=== PATIENT | male | born 1975 | race Caucasian/White ===

== ENCOUNTER 2021-01-18 12:00 | Outpatient (RCR) | payer OTHER, SELFPAY ==
--- NOTE | 2020-12-16 11:13 | HP.PTEVAL_ITS ---
Patient's Visit Information SAHIL YOUNG is a 45 year old M referred to Physical Therapy by Dr. Fernando Berman MD with a diagnosis of SPASM OF THE PIRIFORMIS M.. Date of Evaluation: 12/16/20 Physical Therapist: Cee Capone PT, Cert MDT - Visit Plan Frequency: 2-3x /Week Duration: 4-6 Weeks Plan: RIGHT LB/BUTTOCK US AND E-STIM WITH CP OR MH. POSTURE CORRECTION/STRENGTHENING, INSTRUCTION IN APPROPRIATE BODY MECHANICS AND ACTIVITY MODIFICATIONS. DLS STARTING WITH A NEUTRAL SPINE PROGRESSING ROM TOLERATED. AARON LE ROM, STRETCHING AND STRENGTHENING. PIRIFORMIS STRETCHING WITH BACK STRAIGHT. CONSIDER FOAM ROLLING FOR STRETCHING TOLERATED IF ABLE TO MAINTAIN NEUTRAL SPINE. HEP INSTRUCTION. 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 A LOT OF WALKING BUT NO LIFTING. SOME DESK WORK ABOUT AN HOUR OR TWO A DAY. REFEREES BASKETBALL, SOFTBALL AND VOLLEYBALL ALL YEAR LONG. Disability: NO. Present symptoms: CENTRAL AND RIGHT LBP, RIGHT POST THIGH PAIN. ONE EPISODE OF ENTIRE RIGHT LE GOING NUMB ABOUT A WEEK AGO. IT WAS SEVERE PAIN, SCARED HIM AND KEPT HIM UP ALL NIGHT. NOW THE PAIN IS MAINLY JUST IN THE RIGHT BACK AND THIGH. Present since: CHRONIC LBP BUT RIGHT THIGH PAIN X ABOUT 6 MONTH. HAS BEEN HAVING TROUBLE BENDING FOR ABOUT 18 MONTHS. TRIED MASSAGING A KNOT IN RIGHT LOW BACK JUST ABOVE BUTTOCKS AND THAT IS WHEN R LE WENT NUMB. Pain Scale: WORST 8/10, LEAST 0/10. Currently: 10/04. Commenced as a result of: DOG WENT UNDERFEET WHILE GOING DOWN STEPS AND LOST BALANCE AND FELT LOW BACK STRAIN - SKIPPED DOWN 5 STEPS HOLDING ONTO RAIL. DIDN'T FALL THOUGH. DIDN'T HEAR OF FEEL A POP. Symptoms at onset: LOW BACK. Worse: RISING FROM SITTING (GETTING UP), UMPIRING, A LOT OF BENDING, BENDING TO CLEAN BASES WITH BRUSH. SITTING. LYING DOWN. Better: STAYING ACTIVE, WORKING OUT, ON THE MOVE, STRETCHES. Disturbed sleep: YES. Previous history/Previous treatment: PHYSICAL THERAPY, PAIN MGMT WITH DR. VENTURA - 3 KHURRAM'S - GOT RID OF THE PAIN FOR A LONG TIME - ABOUT 7 YEARS AGO. NO BACK SURGERY. A FEW CHIROPRACTIC VISITS WITH SOME TEMPORARY BENEFIT - LAST VISIT ABOUT 2 MONTHS AGO. CHIROPRACTIC THIS EPISODE AND IN THE PAST TOO. STATES ONE TIME THEY ALMOST HAD TO CALL THE AMBULANCE BECAUSE HE COULDN'T GET OFF THE TABLE AFTER TREATMENT. Coughing/sneezing/straining: POSITIVE. Gait: NORMAL. Difficulty initiating urinatin: NO. Accidents: NO. Unexplained weight loss: NO. Imaging: NONE RECENT. PMH/Recent major surgery: UNREMARKABLE. OTHER: WORKING OUT AT [employer] BUT HAS TAKEN THE LAST WEEK OFF. 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 HAS BEEN GOING TO [employer] ABOUT 4 DAYS A WEEK FOR ABOUT 2 YEARS. - Objective Sitting/Standing Posture: FAIR. Lordosis: REDUCED. Lateral shift: NO. Relevant shift: N/A. Active Correction of posture: NE. Other Observations: INDEP GAIT AND TRANSFERS WITH NO GROSS DEVIATIONS NOTED EXCEPT DIFFICULTY GETTING UP ERECT AFTER SITTING. Motor deficit: AARON LE'S 5/5 WITH MMT'ING. Sensory deficit: AARON LE LIGHT TOUCH SENSATION INTACT AND SYMMETRICAL. ROM deficit: TIGHT AARON LE HIP FLEXORS, HS'S AND GASTROC SOLEUS COMPLEX'S. Reflexes: 3/3 AARON LE'S. AARON HIP ROTATION TIGHTNESS: ER LIMITATION R>L, IR LIMITATION L>R. Dural Signs: NEGATIVE AARON LE'S. Lumbar mvmt loss: flex - MOD TO LYNNE. ext - MOD. R SG - MOD. L SG - MOD. Core strength: FAIR. Palpation: NO ACUTE TENDERNESS. OTHER: POSITIVE R STEPHANIE TEST. TREATMENT: NEUROMUSCULAR REEDUCATION - RETRAINING OF MVMT AND POSTURE FOR SITTING, LYING AND STANDING ACTIVITIES. - Goals Goal 1:: DECREASE C/O BACK AND RIGHT LE SX'S. Goal Time Frame: 4-6 Weeks Goal 2:: IMPROVE SITTING, STANDING, SLEEP, SOCIAL LIFE, TRAVEL, HOMEMAKING AND EMPLOYMENT. Goal Time Frame: 4-6 Weeks Goal 3:: INSTRUCT IN PROPHYLAXIS Goal Time Frame: 4-6 Weeks - Anticipated Interventions Patient/Client Instruction: Educate patient on: Condition, Plan of Care, Risk Factors, Benefits of Fitness Program For the Purpose of:: To improve self management Therapeutic Exercise to Include: Strength training, Body mechanics, Postural training, Flexibilty training, Neuromotor development, In an aquatic setting, Dynamic Lumbar Stabilization For the Purpose of:: To decrease pain, To increase ROM, To improve muscle performance and motor function, To increase tolerance to activity/condition/position, To improve ability of physical actions for home/community/work/leisure Manual Therapy Techniques to Include: Soft tissue mobilization Comment: R PIRIFORMIS NEEDED For the Purpose of:: To decrease soft tissue restriction IF ES: Yes Cryotherapy (ice pack, ice massage): Yes Thermo therapy (hot pack): Yes Ultrasound (thermal/non thermal): Yes For the Purpose of:: To decrease pain, To improve nutrient delivery to tissue Thank you for the opportunity to evaluate your patient. For Medicare and Medicare HMO plans, please review the plan of care and approve it. It will need to be FAXED BACK to us at [phone] for Medicare purposes. For Medicare only, by signing this I certify the plan of care. Please let me know if there are questions or concerns regarding this plan of care. Physician Signature: Date:_
--- NOTE | 2021-01-18 12:33 | HP.PTDCSUM ---
It has been my pleasure to treat SAHIL YOUNG referred by Dr. Fernando Berman MD, with the diagnosis of SPASM OF THE PIRIFORMIS M. for a total of 10 visit(s). Discharge Date: 01/18/21 Please see the following information for a summary of their discharge status. Subjective: PATIENT REPORTS HE IS DOING MUCH BETTER AND FEELS READY TO CONTINUE EX ON HIS OWN NOW. RIGHT LOW BACK Pain Intensity (Out of 10): 2 % Improvement: 90 Objective/Function: PATIENT WAS SEEN TODAY FOR E-STIM AND RE-ASSESSMENT OF PROGRESS TOWARD THE SET PT GOALS AND THE NEED FOR FURTHER PHYSICAL THERAPY VS READINESS FOR DISCHARGE. ALL GOALS MET AND PATIENT IS INDEP WITH BOTH LAND AND WATER EX PROGRAMS NOW. UPON EXAM TODAY: Motor deficit: ARAON LE'S 5/5 WITH MMT'ING. Sensory deficit: AARON LE LIGHT TOUCH SENSATION INTACT AND SYMMETRICAL. ROM deficit: PATIENT STILL HAS TIGHT AARON LE HIP FLEXORS, HS'S AND GASTROC SOLEUS COMPLEX'S. Reflexes: 3/3 AARON LE'S. AARON HIP ROTATION TIGHTNESS: ER LIMITATION R>L, IR LIMITATION L>R. Dural Signs: NEGATIVE AARON LE'S. Lumbar mvmt loss: flex - MIN. ext - MIN. R SG - MIN. L SG - MIN. Core strength: FAIR. Palpation: NO ACUTE TENDERNESS. OTHER: PATIENT STILL HAS TIGHT AARON HIPS ABOVE BUT STEPHANIE TESTING AARON IS NEGATIVE TODAY. Goal 1:: DECREASE C/O BACK AND RIGHT LE SX'S. Goal Progress: Goal Met Goal 2:: IMPROVE SITTING, STANDING, SLEEP, SOCIAL LIFE, TRAVEL, HOMEMAKING AND EMPLOYMENT. Goal Progress: Goal Met Goal 3:: INSTRUCT IN PROPHYLAXIS Goal Progress: Goal Met Plan: D/C TO INDEP LAND AND WATER EX. PATIENT AGREEABLE. If there are questions or concerns regarding this patient's physical therapy, please feel free to call me at [phone]. Thank you for the referral of this patient. Sincerely, Cee Capone, PT, Cert MDT
== END 2021-01-18 19:00 | disposition home or self-care (01) ==
LOC: PT 12:00
PROVIDERS: PCP Family Medicine; Referring Provider Family Medicine; Visit Provider Family Medicine
DX: M62.838 Other muscle spasm (principal)
CPT/HCPCS: 97014; 97035; 97110; 97112; 97113; 97162; 97164; 97530; G0283

== ENCOUNTER 2022-05-10 08:59 | Emergency (ER) | payer OTHER, SELFPAY ==
[2022-05-10 09:01] VITALS: BP 156/81; PULSE 71; RESP 17; TEMP 36.1; O2SAT 98; BMI 39.8
--- NOTE | 2022-05-10 09:22 | EKG12_ITS ---
Test Reason : CP Blood Pressure : / mmHG Vent. Rate : 071 BPM Atrial Rate : 071 BPM P-R Int : 162 ms QRS Dur : 100 ms QT Int : 392 ms P-R-T Axes : 053 056 006 degrees QTc Int : 425 ms Normal sinus rhythm Normal ECG Confirmed by EUSEBIA ROMAN, ATIYA ([id number]), photo editor ESTHER LAZAR ([id number]) on 05/12/2022 10:01:55 AM Referred By: CLAYTON Confirmed By:ATIYA LAWS MD
--- NOTE | 2022-05-10 09:23 | EDS_ITS ---
HPI History of Present Illness Chief Complaint: Chest Pain Narrative Narrative: Patient presents with posterior left arm pain, and chest heaviness that he has had since 730 last evening, greater than 12 hours ago. He states he was at the [employer] game, went up to catch a foul ball, and had to sit back down because he felt numb all over. He then experienced numbness in the posterior portion of his left upper arm in the triceps area. He denies any neck pain. No injury. No loss of consciousness. No loss of bowel or bladder. He is also concerned because his head chest heaviness that he rates a 2 out of 3 since then, but feels mildly anxious. States he has been more sweaty today but denies any nausea or vomiting. No shortness of breath. No neck pain. He denies any increasing pain on exertion. No other symptoms. He states he has problems with his low back and takes meloxicam, and they wanted to him to have back surgery but he declined and no longer sees a specialist, gets his medication from his primary care provider. [facility] Medical History (Updated 05/10/22 @ 11:31 by Jay Sears MD) Back pain Hx of fracture of ankle Home Medications meloxicam 15 mg tablet 15 mg PO DAILY 05/10/22 [History Last Taken Unknown] Allergy/AdvReac Type Severity Reaction Status Date / Time Penicillins Allergy Rash Verified 05/10/22 09:00 Social History Smoking Status: Never smoker ROS ROS ED ROS Narrative Constitutional: No fever, no chills. HEENT: No sore throat. No neck pain. No loss of vision. No rhinorrhea. Cardiovascular: Mild chest heaviness/chest pain. No palpitations. No pedal edema. Respiratory: No cough, no shortness of breath. Abdominal: No abdominal pain. No nausea. No vomiting. Genitourinary: No dysuria. No hematuria. Musculoskeletal: No myalgias. No arthralgias. Pain and numbness left triceps Neurologic: No headaches. No dizziness. No lightheadedness. Skin: No rash. No change in color. Psychiatric: No depression. No anxiety. EXAM Physical Exam Narrative Exam Narrative: Afebrile. Vital signs noted. HEENT: Normocephalic. Atraumatic. PERRL, EOMI. Neck soft and supple. No point tenderness or step off. No neck tenderness. Cardiovascular: Regular rate and rhythm. No murmurs, rubs, or gallops appreciated. Respiratory: No tachypnea. Lungs clear to auscultation bilaterally. Gastrointestinal: Abdomen soft, nontender, with normoactive bowel sounds. No rebound or guarding. Neurological: Awake. Alert. Nonfocal, nonlateralizing. Able to raise arms above head without difficulty. Palpable radial pulse. Skin: No rash. Normal color. No pallor. Musculoskeletal: No pedal edema. Full range of motion extremities. Const Vital Signs: 05/10/22 09:01 05/10/22 09:17 Temperature 96.9 F L Temperature Source Temporal Pulse Rate 71 Respiratory Rate 17 Respiratory Effort Normal Respiratory Pattern Normal Blood Pressure 156/81 H Blood Pressure Mean 106 Pulse Ox 98 Oxygen Delivery Method Room Air Heart Score History: Slightly/Non-Suspicious ECG: Normal Age: >45 - <65 years Risk Factors: 1 or 2 Risk Factors Troponin: </= Normal Limit Score: 2 MDM MDM MDM Narrative Medical decision making narrative: EKG was obtained and interpreted by myself which demonstrates normal sinus rhythm at 71 bpm without ectopy or acute ST changes. No STEMI. No significant change from previous. CBC is grossly normal. D-dimer negative at 0.32. Electrolyte panel shows chloride elevated at 109 but otherwise unremarkable. Troponin 4. This is greater than a 6-hour troponin. Hence, I do not feel that it needs to be repeated. I do feel that he has been ruled out with biomarkers. He has a low heart score. Upon reexamination he feels improved. Even his left arm pain has improved. I do feel he may have strained his left triceps when he reached up. He is not having neck pain. I do not feel emergent MRI is indicated. I feel he can be discharged safely home with follow-up to his primary care provider. Chest x-ray interpreted by myself shows no acute process, no pneumothorax or infiltrate. At this point in time, he will be discharged home in stable condition. Patient and comfortable with the plan. Lab Data Attestation: I reviewed the patient's lab results. Labs: Laboratory Results - last 24 hr 05/10/22 05/10/22 05/10/22 09:50 09:50 09:50 WBC 6.5 RBC 4.88 Hgb 14.5 Hct 44.2 MCV 90.6 MCH 29.7 MCHC 32.8 RDW Std Deviation 41.1 RDW Coeff of Neelima 12.4 Plt Count 188 MPV 9.6 Immature Gran % (Auto) 0.900 Neut % (Auto) 71.9 H Lymph % (Auto) 18.6 L Swisher % (Auto) 6.2 Eos % (Auto) 1.8 Baso % (Auto) 0.6 Absolute Neuts (auto) 4.7 Absolute Lymphs (auto) 1.21 Nucleated RBC % 0 D-Dimer Quant (PE/DVT) 0.32 Sodium 141 Potassium 4.4 Chloride 109 H Carbon Dioxide 28.0 Anion Gap 4 L BUN 15 Creatinine 1.07 Estim Creat Clear Calc 95.42 Est GFR (MDRD) Af Amer 95 Est GFR (MDRD) Non-Af 78 BUN/Creatinine Ratio 14.0 Glucose 112 H Calcium 8.9 Troponin I High Sens 4 Radiography Diagnostic Testing: Clinical Impression(s) from Imaging Studies Chest X-Ray 05/10/22 10:21 IMPRESSION: No radiographic evidence of acute cardiopulmonary disease. Electronically Signed: Horacio Lorenzo MD at 10:44 EDT , Discharge Plan Triage Chief Complaint: Chest Pain ED Provider: Jay Sears Dx/Rx/DC Orders Clinical Impression: Chest pain, Strain of left triceps Instructions: ED Chest Pain, Uncertain Cause, ED Muscle Strain, Extremity Prescriptions: No Action meloxicam 15 mg tablet 15 mg PO DAILY Label Comments: TAKE 1 TABLET BY MOUTH EVERY DAY Primary Care Provider: Fernando Berman Referrals: Fernando Berman MD [Primary Care Provider] - 1 Week Disposition Disposition: Home, Self Care
[2022-05-10 09:57] LABS: Absolute Lymphocyte Count 1.21 X10^3/uL (0.83-4.51); Absolute Neutrophil Count 4.7 X10^3/uL (2.0-7.7); Basophil# 0.04 X10^3/uL; Basophil% 0.6 % (0-1); Eosinophil# 0.12 X10^3/uL; Eosinophils% 1.8 % (0-5); Hematocrit 44.2 % (40-54); Hemoglobin 14.5 g/dL (13.0-16.5); Lymphocyte # 1.21 X10^3/ul (0.83-4.51); Lymphocyte % 18.6 % (19-41); Mean Corp Hgb Conc 32.8 g/dL (32-36); Mean Corpuscular Hgb 29.7 pg (27.0-32.0); Mean Corpuscular Volume 90.6 fL (80-94); Mean Platelet Vol. 9.6 fl (6.2-12.0); Monocyte% 6.2 % (0-10); NRBC Flagged by Analyzer 0 % (0-5); Neutrophil # 4.66 X10^3/uL (2.7-7.7); Neutrophil % 71.9 % (47-70); Platelet Count 188 K/mm3 (150-450); RBC Distribution Width CV 12.4 % (11.6-14.6); RBC Distribution Width SD 41.1 fl (35.1-43.9); Red Blood Count 4.88 M/mm3 (4.6-6.2); White Blood Count 6.5 K/mm3 (4.4-11.0)
[2022-05-10 10:21] LABS: Anion Gap 4 (5-15); BUN 15 mg/dL (7-18); Calcium,Total 8.9 mg/dL (8.5-10.1); Chloride 109 mmol/L (98-107); Creatinine, Serum 1.07 mg/dL (0.70-1.30); EST Glomerular Filtration Rate 78 mL/min (>60); Est Glom Filt Rate - Afr Amer 95 mL/min (>60); Estimated Creatinine Clearance 95.42 ml/min; Glucose 112 mg/dL (74-106); Potassium 4.4 mmol/L (3.5-5.1); Sodium Level 141 mmol/L (136-145); Troponin-I HS (w/2H Reflex) 4 pg/mL (3.0-78.0)
--- NOTE | 2022-05-10 10:21 | RAD_ITS ---
INDICATION: chest pain EXAMINATION/TECHNIQUE: X-RAY - XR Chest 1 View COMPARISON: None. FINDINGS: Poor inspiratory effort is seen. LINES/DEVICES: None. LUNGS: No consolidation, edema or effusion. No pneumothorax. MEDIASTINUM AND CARDIOVASCULAR STRUCTURES: Cardiac silhouette not enlarged. Central airways and mediastinal contour are unremarkable. BONES AND SOFT TISSUES: Degenerative bone changes seen. RAD/Chest 1 View (Portable) IMPRESSION: No radiographic evidence of acute cardiopulmonary disease. Electronically Signed: Horacio Lorenzo MD at 10:44 EDT ,
[2022-05-10] MEDS: Aspirin 81 MG TAB.CHEW 324 MG PO (10:39)
[2022-05-10 10:44] LABS: D-Dimer Quantitative (DVT/PE) 0.32 FEU/ug/m (0.27-0.49)
[2022-05-10 11:25] VITALS: BP 139/88; BP 174/104
--- NOTE | 2022-05-10 11:48 | CT_ITS ---
STUDY: CTA CHEST REASON FOR EXAM: Male, 47 years old. Chest Pain RADIATION DOSAGE (If Supplied By Facility): CTDIvol = ( 22.16 ) mGy, DLP = ( 574.68 ) mGycm TECHNIQUE: The examination was performed with the intravenous administration of IV 100mL Isovue-370. Post-processing of the angiographic images was performed, with multiplanar reformation and 3D reconstruction. Individualized dose optimization techniques were used for this CT. COMPARISON: None. FINDINGS: No filling defect in the pulmonary arteries to suggest pulmonary embolism. Intact thoracic aorta. No adenopathy. No pleural or pericardial effusion. No pneumothorax. No pulmonary consolidation, mass, or suspicious nodule. Sections through the upper abdomen demonstrate diffuse hepatic steatosis. Multilevel thoracic spondylosis noted. CT/CTA Chest W/WO Contrast IMPRESSION: No acute finding the chest with no evidence of pulmonary embolism. Diffuse hepatic steatosis. Electronically Signed: Josh Mobley MD at 13:07 EDT ,
[2022-05-10 11:55] LABS: Reflex Troponin-HS? (from REC) Y
[2022-05-10] MEDS: LORazepam 2 MG/ML Syringe 1 MG IV (12:07)
[2022-05-10 12:47] LABS: Troponin-I HS 5 pg/mL (3.0-78.0)
[2022-05-10 13:16] VITALS: BP 134/87; PULSE 64; RESP 16; O2SAT 98
== END 2022-05-10 13:20 | disposition home or self-care (01) ==
PROVIDERS: Emergency Provider Emergency Medicine; PCP Family Medicine; Visit Provider Emergency Medicine
DX: S46.312A Strain of muscle, fascia and tendon of triceps, left arm, initial encounter (principal); R07.9 Chest pain, unspecified; M54.9 Dorsalgia, unspecified; Z79.899 Other long term (current) drug therapy; X50.9XXA Other and unspecified overexertion or strenuous movements or postures, initial encounter; Y93.64 Activity, baseball; Y92.39 Other specified sports and athletic area as the place of occurrence of the external cause
CPT/HCPCS: 71045; 71275; 80048; 84484; 85025; 85379; 93005; 96374; 99285; Q9967; A4216

== ENCOUNTER → 2022-09-28 | Outpatient (CLI) | payer OTHER, SELFPAY ==
--- NOTE | 2022-09-28 06:43 | MRI_ITS ---
HISTORY: Disc degeneration C5-6. Right arm numbness, no specific injury TECHNIQUE: Multiplanar and multisequence MR images of the cervical spine were obtained without contrast. 256 images. COMPARISON: None. FINDINGS: VERTEBRAE: Vertebral body heights maintained. No significant bone marrow signal abnormality. VERTEBRAL ALIGNMENT: Straightening of the cervical lordosis without anterior or posterior subluxation. SPINAL CORD: Small focus of nonexpansile, increased T2 signal in the cord at C3-4. SOFT TISSUES: No prevertebral fluid collection. INTERVERTEBRAL DISCS: C2-3: Developmentally narrow spinal canal resulting in mild central canal stenosis. No significant posterior disc protrusion. Uncovertebral and facet arthropathy resulting in mild left foraminal narrowing. C3-4: Mild disc bulge with uncovertebral and facet arthropathy superimposed on a developmentally narrow spinal canal resulting in moderate central canal stenosis and bilateral foraminal narrowing. C4-5: Mild left paracentral disc protrusion abutting the left ventral cord with probable impingement of the traversing and exiting left nerve roots superimposed on a developmentally narrow spinal canal with uncovertebral and facet arthropathy resulting in mild-moderate central canal stenosis and mild bilateral foraminal narrowing. C5-6: Moderate disc protrusion with uncovertebral and facet arthropathy superimposed on a developmentally narrow spinal canal resulting in abutment of the ventral cord, moderate central canal stenosis, and bilateral foraminal narrowing. C6-7: Mild disc bulge eccentric to the right with uncovertebral and facet arthropathy resulting in mild central canal stenosis, mild left foraminal narrowing, and moderate-severe right foraminal narrowing with probable impingement of the exiting right nerve root. C7-T1: No significant posterior disc protrusion, central canal stenosis , or foraminal narrowing based on the sagittal images. MRI/Spine Cervical (Routine) IMPRESSION: Multilevel degenerative disc disease superimposed on a developmentally narrow spinal canal resulting in moderate spinal canal stenosis, bilateral foraminal narrowing, and probable bilateral nerve root impingement with mild myelopathy at C3-4 as described above. Electronically Signed: Marina Bello MD at 10:58 EST ,
== END | disposition home or self-care (01) ==
PROVIDERS: PCP Family Medicine; Referring Provider Orthopaedic Surgery; Visit Provider Orthopaedic Surgery
DX: M50.322 Other cervical disc degeneration at C5-C6 level (principal)
CPT/HCPCS: 72141

== ENCOUNTER → 2022-10-04 | Outpatient (CLI) | payer OTHER, SELFPAY | END | disposition home or self-care (01) | LOC: PSN 09:07 | PROVIDERS: PCP Family Medicine; Referring Provider Orthopaedic Surgery; Visit Provider Orthopaedic Surgery | DX: Z20.828 Contact with and (suspected) exposure to other viral communicable diseases (principal) | CPT/HCPCS: 87635; C9803; U0003; U0005 ==

== ENCOUNTER → 2024-04-08 | Outpatient (CLI) | payer OTHER, SELFPAY ==
--- NOTE | 2024-04-08 12:44 | SP.MBSS_ITS ---
Modified Barium Swallow Patient Information Study Date: 04/08/24 Study Time: 12:45 Direct Billable Minutes: 81 Total Minutes procedure & reportin Diagnosis: Dysphagia R13.10 Referring Physician: Andres Fernandes V Reason for Referral: Objectively assess swallow function, assess risk for aspiration, and determine recommendations for least restrictive diet textures and compensatory strategies to improve safety of swallow. Medical History: PMH: Cervical fusion (01/09/2023). Pt reports having hyperreflexive gag since ~3-4 months following his cervical fusion. Certain times that he goes to brush his teeth or take a pill, he feels as if he is going to vomit. He had a choking incident on steak ~4 years ago and beat his chest to expel the steak. Of note, he reports globus sensation and says at times he coughs out white. He has had heartburn in the past, but not recently. Current Diet Ordered: Regular textures / Thin liquids Dentition: WNL and Natural Teeth Mental Status: WNL Respiratory Status: Oxygenating on Room Air Penetration-Aspiration Scale Penetration-Aspiration Scale: OBJECTIVE ASSESSMENT OF SWALLOW FUNCTION (QUANTITATIVE ? PER TRIAL): PENETRATION / ASPIRATION SCALE (DURBIN): 1 = does not enter airway 2 = enters airway/above vocal folds/ejected 3 = enters airway/above vocal folds/not ejected 4 = enters airway/contacts vocal folds/ejected 5 = enters airway/contacts vocal folds/not ejected 6 = enters airway/below vocal folds/ejected 7 = enters airway/below vocal folds/not ejected despite effort 8 = enters airway/below vocal folds/no effort VIDEOFLOROSCOPIC SCALE SCORE (DURBIN): Grade I = aspiration of material that has penetrated into the laryngeal vestibule, intact cough reflex Grade II = aspiration < 10 % of the bolus, intact cough reflex Grade III = aspiration of < 10 % of the bolus, reduced cough reflex or aspiration of > 10 % of the bolus, intact cough reflex Grade IV = aspiration of > 10 % of the bolus, reduced cough reflex Penetration-Aspiration Scale Score Thin Liquid via teaspoon: Result: 1= does not enter airway Thin Liquid via large single sip: cup: Result: 1= does not enter airway [place] Thick Liquid via large single sip: cup: Result: 1= does not enter airway Pudding via teaspoon: Result: 1= does not enter airway Comment: Esophageal screen - Complete clearance. 1/2 Cookie: Result: 1= does not enter airway (Esophageal screen - Mild retention in lower esophagus with retrograde flow to the mid esophagus remaining well below the UES.) Comment: Esophageal screen - Mild retention in lower esophagus with retrograde flow to the mid esophagus remaining well below the UES. Thin Liquid via sequential sips:straw: Result: 1= does not enter airway Comment: Esophageal screen - Mild retention in lower esophagus with retrograde flow to the mid esophagus remaining well below the UES. Oral Phase Labial Seal: Interlabial escape, no progression to anterior lip Tongue Control During Bolus Hold: Posterior escape of greater than half of bolus (sequential thin) Bolus Preparation/Mastication: Timely and efficient chewing and mashing Bolus Transport/Lingual Motion: Brisk tongue motion Oral Residue: Residue collection on oral structures (large thin by cup, pudding, cookie) Pharyngeal Phase Initiation of Pharyngeal Swallow: Bolus head in pyriforms Soft Palate Elevation: Trace column of contrast/air between soft palate and pharyngeal wall Laryngeal Elevation: Comp. Superior move thyroid cart w/comp. apprx arytenoid cart-epig pet Anterior Hyoid Excursion: Partial anterior movement Epiglottic Movement: Complete inversion Laryngeal Vestibule Closure at Height of Swallow: Complete; no air/contrast in laryngeal vestibule Pharyngeal Stripping Wave: Present - complete Pharyngoesophageal Segment Opening: Complete distension and complete duration; no obstruction of flow Tongue Base Retraction: Narrow column of contrast between tongue base & post. pharyngeal wall Pharyngeal Residue: Trace residue within or on pharyngeal structures Esophageal Phase Esophageal Clearance: Esophageal retention w/ retrograde flow below pharyngoesophageal seg. Diagnosis/Impression Diagnosis: Oropharyngeal swallow function grossly WNL Impression: Oropharyngeal swallow function grossly WNL. Piecemeal deglutition of large thin by cup, pudding, cookie. Posterior loss of sequential thin liquids via straw to the pyriforms; otherwise, good bolus control and timely swallows. Pt demonstrated good airway closure during the swallow throughout the study and dem onstrated no laryngeal penetration or aspiration. Trace pharyngeal residues after the swallow. The esophageal phase is primarily marked by... -Mild retention of cookie and sequential sips of thin liquids via in the lower esophagus with retrograde flow to the mid esophagus remaining well below the UES. Recommendations Diet: Regular Textures and Thin Liquids Compensatory Strategies: Small Bites, Small Sips, Slow Rate, Alternate bites/solids and sips/liquids, Sitting upright and Remain sitting upright for 30 minutes after PO intake Recommend Repeat Modified Barium Swallow: No Need for Skilled Speech Therapy Services: No Recommended Referrals: GI Consult Education Completed: 1. Described result of evaluation. Status Active ST Patient: Active Contact Information [facility] Speech Therapy:: Diane Quiles M.A. CCC-REFRIGERATION INSULATOR? Speech-Language Pathologist?? [facility] [address] [place] [address]? [email or web address]?? [phone]
== END | disposition home or self-care (01) ==
PROVIDERS: PCP Family Medicine; Referring Provider Internal Medicine Pulmonary Disease; Visit Provider Internal Medicine Pulmonary Disease
DX: R13.10 Dysphagia, unspecified (principal)
CPT/HCPCS: 74230; 92611

== ENCOUNTER → 2024-07-09 | Outpatient (CLI) | payer OTHER, SELFPAY ==
--- NOTE | 2024-07-09 13:40 | RAD_ITS ---
INDICATION: PAIN EXAMINATION/TECHNIQUE: X-RAY - LEFT XR Knee Complete 4 Views or More 4 VIEWS COMPARISON: No relevant prior comparison study available FINDINGS: BONES: No fracture demonstrated. Moderate joint space narrowing with subchondral sclerosis and osteophytes at all 3 joint compartments. JOINTS: No dislocation. SOFT TISSUES: Unremarkable. RAD/Knee 4 or More Views IMPRESSION: No evidence of fracture. Degenerative changes. Electronically Signed: Beth Rollins MD at 14:07 EDT ,
== END | disposition home or self-care (01) ==
LOC: RAD 13:33
PROVIDERS: PCP Family Medicine; Referring Provider Family Medicine; Visit Provider Family Medicine
DX: M25.562 Pain in left knee (principal)
CPT/HCPCS: 73564

== ENCOUNTER 2024-07-11 12:30 | Outpatient (RCR) | payer OTHER, SELFPAY ==
--- NOTE | 2024-07-02 14:32 | HP.PTEVAL_ITS ---
Patient's Visit Information Visit Information Visit Information: SAHIL YOUNG is a 49 year old M referred to Physical Therapy by Dr. Fernando Berman MD with a diagnosis of L knee pain. Date of Evaluation: 06/27/24 Physical Therapist: Jeremias Riggins DPT Visit Plan Frequency: 2x /Week Duration: 4 Weeks Plan: Start with ROM exercises to increase TKE and knee flexion Progress strengthening and mobility as tolerated Add in VASO for edema control. Subjective Subjective: Pt. is here today for her initial evaluation with diagnosis of L knee pain. Pt. reports having increased symptoms for a few months now. Pt. was reports no mech of injury. He has had increased swelling in his L leg causing increased tightness. Pt. reports he has been doing better over the past few days, but still having issues. He reports that his leg does not want to go fully straight. Pt. reports a lot of stiff after sitting in his car for longer periods of time. Pt. is hopeful to get back to all work activties without limitations. Pain L knee: Pain Intensity (Out of 10): 2 Pain Intensity Range: 0 and 4 Objective Objective: POSTURE: Pt. has decent posture,lacking TKE in stance. PALPATION: pt. has some tenderness at medial posterior aspect of his knee. Marked swelling in L knee compared to R side. NEURO: normal throughout. ROM: L knee: 0-10-109deg. Pain reported with all motions. MMT: 5/5 throughout without increase in symptoms. but lacking TKE seoncdary to pain GAIT: pt. ambulates with no AD, but does lack TKE during L stance phase. + disco test, + Melissa Balance/Special Test Scores Lower Extremity Functional Score: 52 Goals Goal 1:: LTG: Pt. to be I with HEP. Goal Time Frame: 4-6 Weeks Goal 2:: STG: PT. to have full L knee ROM without increase in symptoms. Goal Time Frame: 2-4 Weeks Goal 3:: LTG: Pt. to be able to complete all work activities without increase in symptoms. Goal Time Frame: 4-6 Weeks Rehabilitation Potential Physical Therapy Diagnosis: Pt. has signs and symtpoms consistent with L knee pain. He has lack of L knee ROM causing increased pain with gait and ambualtion. Pt. would benefit from PT to address the above limitations. Rehabilitation Potential: Good Anticipated Interventions Patient/Client Instruction: Educate patient on: Condition, Plan of Care, Risk Factors and Benefits of Fitness Program For the Purpose of:: To improve decision making, To facilitate caregiver knowledge, To improve self management, To prevent re-injury and To improve ability to perform tasks related to life management Therapeutic Exercise to Include: Strength training, Power training, Postural training, Flexibilty training, Gait and locomotor training, Passive ROM and Active ROM For the Purpose of:: To decrease pain, To increase ROM, To improve nutrient delivery to tissue, To increase oxygenation perfusion and To improve muscle performance and motor function Text: Thank you for the opportunity to evaluate your patient. For Medicare and Medicare HMO plans, please review the plan of care and approve it. It will need to be FAXED BACK to us at [phone] for Medicare purposes. For Medicare only, by signing this I certify the plan of care. Please let me know if there are questions or concerns regarding this plan of care. Physician Signature: Date:
== END 2024-07-11 19:00 | disposition home or self-care (01) ==
LOC: PT 12:30
PROVIDERS: PCP Family Medicine; Referring Provider Family Medicine; Visit Provider Family Medicine
DX: M25.562 Pain in left knee (principal)
CPT/HCPCS: 97016; 97110; 97161

== ENCOUNTER 2025-05-10 10:13 | Emergency (ER) | payer OTHER, SELFPAY ==
[2025-05-10 10:14] VITALS: BP 149/95; PULSE 62; RESP 14; TEMP 36.6; O2SAT 98; BMI 38.6
--- NOTE | 2025-05-10 10:30 | RAD_ITS ---
PROCEDURE: CHEST PA AND LATERAL 05/10/2025 REASON FOR EXAM: DIZZINESS TECHNIQUE: CHEST PA AND LATERAL COMPARISON: 05/10/2022 FINDINGS: LUNGS AND PLEURA: The lungs are clear. No pleural effusion or pneumothorax. HEART AND MEDIASTINUM: The heart size and mediastinal contours are normal. BONES: No acute osseous abnormality. Prior cervical spine fusion. RAD/Chest PA and Lateral IMPRESSION: NO ACUTE FINDINGS. Reading Location: [id number]
--- NOTE | 2025-05-10 10:32 | EX.ED.DYSGE1 ---
HPI History of Present Illness Chief Complaint: Dizziness Narrative Narrative: Patient is a 50-year-old male with a past medical history of cervical spine surgery who presents to the emergency department with a chief complaint of headache, dizziness, head pressure. Patient dates his symptoms started on this past week after he ate a sandwich he noted that he threw up and he originally thought that his symptoms were secondary to the food he ate. He states that his symptoms have been progressively worsening and notes that if he goes from the sitting to standing position he feels very off balance. He also notes that if the attempts to close his eyes he feels like his symptoms worsen significantly. Patient notes that he was trying to drive to his volleyball game today and notes that he could not do so therefore they brought him here to be further evaluated. Patient denies any head injuries or traumas. Patient denies any blood thinning medications. [facility] Medical History Back pain Hx of fracture of ankle Home Medications ?Medication ?Instructions ?Recorded ?Last Taken ?Type meloxicam 15 mg tablet 15 mg PO DAILY 05/10/22 Unknown History meclizine 25 mg tablet 25 mg PO TID PRN dizziness #20 tabs 05/10/25 Unknown Rx ondansetron 4 mg disintegrating 4 mg PO Q6H PRN nausea and 05/10/25 Unknown Rx tablet vomiting #20 tabs Allergy/AdvReac Type Severity Reaction Status Date / Time Penicillins Allergy Rash Verified 05/10/25 10:14 Social History (Updated 05/10/25 @ 11:16 by Magda Lao) household members: spouse housing: house Smoking Status: Never smoker ROS ROS ED ROS Narrative Constitutional: Complains of head pressure as noted above denies any fevers, chills, Eyes: Complains of blurry vision as noted above denies double vision Cardiovascular: Denies chest pain or palpitations Respiratory: Denies coughing wheezing shortness of breath Abdomen: Denies abdominal pain nausea vomiting diarrhea : Denies any urinary symptoms Neurological: Denies numbness, weakness, tingling Musculoskeletal: Denies back pain Skin: Denies any rashes or lesions EXAM Physical Exam Narrative Exam Narrative: General: Patient was lying in bed rest comfortably did not appear to be in acute distress Head: Atraumatic, normocephalic Eyes: PERRL bilaterally, EOMI bilateral, no conjunctival injection noted Neck: Soft, supple, trachea midline Cardiovascular: Regular rate and rhythm Respiratory: Clear to auscultation bilaterally Abdomen: No tenderness palpation Extremities: +5/5 strength noted in the bilateral upper and lower extremities, radial pulses +2/4 and about extremities Neurological: Patient following commands knew he was at [facility] there is 2024. NIH of 0 GCS of 15 Skin: Warm, dry, intact no rashes or lesions noted Const Vital Signs: 05/10/25 10:14 05/10/25 11:15 05/10/25 11:15 Temperature 97.9 F Temperature Source Temporal Pulse Rate 62 68 Pulse Rate [Lying] Pulse Rate [Sitting (for 1 minute prior to obtaining)] Pulse Rate [Standing (for 1 minute prior to obtaining)] Respiratory Rate 14 18 Blood Pressure 149/95 H 142/75 H Blood Pressure [Lying] Blood Pressure [Sitting (for 1 minute prior to obtaining)] Blood Pressure [Standing (for 1 minute prior to obtaining)] Blood Pressure Mean 113 97 Blood Pressure Mean [Lying] Blood Pressure Mean [Sitting (for 1 minute prior to obtaining)] Blood Pressure Mean [Standing (for 1 minute prior to obtaining)] Pulse Ox 98 99 Oxygen Delivery Method Room Air Room Air 05/10/25 11:56 05/10/25 13:00 Temperature Temperature Source Pulse Rate 63 Pulse Rate [Lying] 63 Pulse Rate [Sitting (for 1 minute prior to obtaining)] 70 Pulse Rate [Standing (for 1 minute prior to obtaining)] 65 Respiratory Rate 14 Blood Pressure 130/76 H Blood Pressure [Lying] 123/71 H Blood Pressure [Sitting (for 1 minute prior to obtaining)] 123/75 H Blood Pressure [Standing (for 1 minute prior to obtaining)] 137/90 H Blood Pressure Mean 94 Blood Pressure Mean [Lying] 88 Blood Pressure Mean [Sitting (for 1 minute prior to obtaining)] 91 Blood Pressure Mean [Standing (for 1 minute prior to obtaining)] 105 Pulse Ox 98 Oxygen Delivery Method Room Air MDM MDM MDM Narrative Medical decision making narrative: Patient is a 50-year-old male who presented to the emergency department the chief complaint of dizziness, head pressure and not feeling well overall. Once again his symptoms started against 05/08/2025. On the differential diagnosis includes but not limited to posterior communicating artery aneurysm, intracranial hemorrhage, headache, complex migraine, hypertension, ACS. Once the workup is obtained reviewed he will be reevaluated. Patient be given Reglan, 1 L of IV fluids as well as a gram of Tylenol. Patient will be given meclizine for his dizziness Patient's CBC reviewed and was largely unremarkable no evidence of leukocytosis white blood count was normal at 8.1. Patient's hemoglobin stable at 14.6, platelet count 159. Patient sodium was 140, potassium normal at 4.4, creatinine was 0.86. Patient's magnesium level normal at 2.2, troponin was 10 and a delta troponin obtained was 11. Patient's EKG showed sinus rhythm with a rate of 62 bpm with a HI interval normal at 172. Patient TSH normal at 1.14. Patient CT head and brain without contrast was reviewed and showed no acute intracranial abnormalities noted. Patient CTA head and neck reviewed which showed no acute intracranial abnormality no hemodynamically significant stenosis within the head or neck no evidence of intracranial aneurysm. On reevaluation the patient he is feeling much improved and would like to go home at this point time. Patient ambulated well here in the emergency department and did not have any dizziness. Orthostatic vital signs were negative. Patient was given prescriptions for Zofran and meclizine. Patient was advised to keep a close eye on his blood pressure over the next several days as he was borderline hypertensive when he arrived here to the emergency department by keeping a blood pressure log and taking that to his primary care physician for their review. He was advised to return with worsening symptoms or any concerns. He is agreeable this plan all question concerns answered he is discharged home in stable condition. Lab Data Labs: Laboratory Results - last 24 hr 05/10/25 05/10/25 10:55 12:30 WBC 8.1 RBC 4.77 Hgb 14.6 Hct 43.0 MCV 90.1 MCH 30.6 MCHC 34.0 RDW Std Deviation 41.5 RDW Coeff of Neelima 12.5 Plt Count 159 MPV 9.5 Immature Gran % (Auto) 0.900 Neut % (Auto) 74.2 H Lymph % (Auto) 16.7 L Petroleum % (Auto) 6.0 Eos % (Auto) 1.6 Baso % (Auto) 0.6 Absolute Neuts (auto) 6.0 Absolute Lymphs (auto) 1.35 Nucleated RBC % 0 Sodium 140 Potassium 4.4 Chloride 106 Carbon Dioxide 20.2 L Anion Gap 13 BUN 13 Creatinine 0.86 Estim Creat Clear Calc 145.31 Est GFR (MDRD) Non-Af 105 BUN/Creatinine Ratio 15.2 Glucose 118 H Calcium 8.9 Magnesium 2.2 Troponin T High Sens 10 Troponin T Hi Sens 2 Hr 11 TSH 1.140 Radiography Diagnostic Testing: Clinical Impression(s) from Imaging Studies Chest X-Ray 05/10/25 10:30 IMPRESSION: NO ACUTE FINDINGS. Reading Location: [facility] Brain CT 05/10/25 11:26 IMPRESSION: No acute intracranial abnormality. Reading Location: [facility] Head/Neck CTA 05/10/25 11:28 IMPRESSION: 1. No acute intracranial abnormality. 2. No hemodynamically significant stenosis within the head or neck. No evidence of intracranial aneurysm. Reading Location: [facility] Discharge Plan Triage Chief Complaint: Dizziness ED Provider: Hosea Zuñiga Dx/Rx/DC Orders Clinical Impression: Vertigo, Nausea, Headache Prescriptions: New meclizine 25 mg tablet 25 mg PO TID PRN (Reason: dizziness) Qty: 20 0RF ondansetron 4 mg tablet,disintegrating 4 mg PO Q6H PRN (Reason: nausea and vomiting) Qty: 20 0RF No Action meloxicam 15 mg tablet 15 mg PO DAILY Patient Comments: TAKE 1 TABLET BY MOUTH EVERY DAY Primary Care Provider: Fernando Berman Referrals: Fernando Berman MD [Primary Care Provider] - Activity Restrictions/Additional Instructions: Your blood work here today did not show any acute findings. Your CT of your head did not show acute findings. Return with worsening symptoms or other concerns. Use prescription sent to your pharmacy as prescribed. Take your blood pressure randomly 2-3 times a day write this down and show your primary care physician further review to decide if you need to be placed on blood pressure medication. Print Language: Korean Disposition Disposition: Home, Self Care
--- OUTSIDE RECORDS SUMMARY | 2025-05-10 10:40 | XMS RPT_ITS | CCD ---
Author Organization [facility] Care Team Providers Care Federal Law Clerk Name Role Phone Pcp, No Primary Care Provider UnavailAndres Madera Unavailable Dali Min Primary Care Provider COURT HAIRSTON Referring Unavailable Dali Min MD Unavailable [facility] Unavailable [facility] Unavailable [phone] [facility] Unavailable Dr. Andres Jovel DO Unavailable Yohana HAIRN, Ariela Unavailable Tavares Joyce MD Unavailable Sandra HAWKINS, Dante Macias Unavailable Saima Flores Unavailable Unavailable Sandra MAYNARD, Alice L Unavailable Unavail able Ana Snowden LPN Unavailable Unavailable Dre MUELLER, Doron Unavailable Unavailable Arturo HAWKINS, Tracy J Unavailable Ana Lozoya MA Unavailable Unavailable Unavailable Unavailable Unavailable Unavailable Dali Min Primary Care Provider [facility] Unavailable DALI MIN Admitting Unavailable DALI MIN Attending Unavailable DALI MIN Primary Care Unavailable Dr. Alfredo Luu Unavailable [phone] (Mayer), [facility] Unavailable Dali Min Attending Unavailable Dali Min Primary Care Unavailable Dali Min Referring Unavailable Dali Min Primary Care Unavailable Dali Min Referring Unavailable Dali Min Attending Unavailable Dali Min Primary Care Unavailable Sibilia, Andres V Referring Unavailable Sibdavid Andres V Attending Unavailable Andres Jovel DO Unavailable [phone] Attending Unavailable JANAEKEYONNA DALI SANCHEZ Primary Care Kiraronan MIN, DALI LAURA Primary Care COUTR Lopez Attending Unavailable MICDALI MAGUIRE TAFT Primary [facility] Kiravai labnorma Ivana Suarez PA-C Unavailable [phone] Allergies Allergy Classification Reported Allergen(s) Allergy Type Date of Onset Reaction(s) Facility Penicillin V (1 source) Penicillin V [email or web address] [place] (4 sources) Penicillins; Translations: [PENICILLINS] Allergy to substance 6 [facility] (14 sources) Penicillins Propensity to adverse reactions [address] [place] [address] Work Phone: (20 sources) Penicillin V Drug Allergy [facility] [employer] (1 source) Penicillins Drug allergy (disorder) 2 [facility] (2 sources) Penicillins Propensity to adverse reactions 6 [facility] Work Phone: Medications Current Medications Medication Drug Class(es) Dates Sig (Normalized) Sig (Original) multivit with min-folic acid (MEN'S MULTIVITAMIN GUMMIES) 200 mcg chew (12 sources) multivit with mi n-folic acid (MEN'S MULTIVITAMIN GUMMIES) 200 mcg chew Take by mouth once daily. Active multivit with mi n-folic acid (MEN'S MULTIVITAMIN GUMMIES) 200 mcg chew Take by mouth once daily. 0 Active Comment on above: Take by mouth once d aily. mupirocin 0.02 mg/mg topical ointment (1 source) RNA Synthetase Inhibitor Antibacterial Start: 12-27-2022 End: 01-03-2023 apply 22 g nasal route twice daily mupirocin (BACTROBAN) 2 % ointment Indications: Staph aureus infection Apply a small amount in each nostril using a cotton swab twice a day for 7 days. 22 g 0 12/27/2022 01/03/2023 Active Comment on above: Apply a small amount in each nostril using a cotton swab twice a day for 7 days. Completed/Discontinued Medications Medication Drug Class(es) Dates Sig (Normalized) Sig (Original) acetaminophen 325 mg oral tablet (3 sources) End: 04-08-2024 take 2 tablets by mouth every six hours as needed acetaminophen (TYLENOL) 325 mg tablet Take 650 mg by mouth every 6 hours as needed. 0 04/08/2024 Discontinued Comment on above: Take 650 mg by mouth every 6 hours as needed. acetaminophen 325 mg / oxyCODONE hydrochloride 5 mg oral tablet (4 sources) Opioid Agonist Start: 01-12-2023 End: 05-15-2023 take 1-2 tablets by mouth every six hours as needed, then take 6 tablets by mouth once daily as needed oxyCODONE-acetaminop hen (PERCOCET) 5-325 mg tablet Indications: Status post cervical arthrodesis Take 1-2 tablets by mouth every 6 hours as needed. Do not take more than 6 tablets per day 24 tablet 0 01/12/2023 05/15/2023 Discontinued Comment on above: Take 1-2 tablets by mouth every 6 hours as needed. Do not take more than 6 tablets per day azithromycin 250 mg oral tablet (20 sources) Macrolide Antimicrobial Start: 06-15-2017 End: 04-26-2018 Zithromax Z-Arcenio 250 MG Oral Tablet ; 2 (two) Tablet today and then 1 tablet daily x 4 days for 0 days Quantity: 1 {Package} Refills: 0 Ordered: 26-Apr-2018 AMI Muller Start: 15-Jun-2017 End: 26-Apr-2018 Status: Inactive cyclobenzaprine hydrochloride 5 mg oral tablet (20 sources) Muscle Relaxant Start: 02-17-2021 End: 04-25-2022 take 1 tablet by mouth at bedtime as needed Cyclobenzaprine HCl 5 MG Oral Tablet ; 1 (one) Tablet at bedtime, as needed for 0 days Quantity: 30 {Tablet} Refills: 2 Ordered: 25-Apr-2022 AMI Muller Start: 17-Feb-2021 End: 25-Apr-2022 Status: Inactive Comments: Medication taken as needed. Cyclobenzaprine HCl 10 MG Oral Tablet ; (10 MG) Status: Inactive Comment on above: Medication taken as needed. gabapentin 300 mg oral capsule (3 sources) Anti-epileptic Agent Start: 08-21-20 End: 04-08-20 take 1 capsule by mouth once daily gabapentin (NEURONTIN) 300 mg capsule Take 1 capsule by mouth once daily for 1 day, THEN 1 capsule two times a day for 1 day, THEN 1 capsule three times a day for 30 days. Do not start before September 22, 2023. 93 capsule 0 09/22/2023 04/08/2024 Discontinued Comment on above: Take [address] [facility] once daily for 1 day, THEN 1 capsule two times a day for 1 day, THEN 1 capsule three times a day for 30 days. LORazepam 1 mg oral tablet (20 sources) Benzodiazepine Start: 09-27-19 End: 04-08-20 LORazepam 1 MG Oral Tablet ; 1 (one) Tablet 30-90 min before procedure for 0 days Quantity: 2 {Tablet} Refills: 0 Ordered: 15-Dec-2022 AMI Muller Start: 27-Sep-2022 End: 15-Dec-2022 Status: Inactive Comments: No OARRS acute treatment Comment on above: Take 1 mg by mouth e very 8 hours as needed. No OARRS acute treat ment meloxicam 15 mg oral tablet (20 sources) Nonsteroidal Anti-inflammatory Drug Start: 04-09-20 End: 04-10-20 meloxicam 15 mg tablet ; 1 (one) Tablet daily for 0 days Quantity: 15 {Tablet} Refills: 0 Ordered: 10-Apr-2025 AMI Muller Start: 09-Apr-2025 End: 10-Apr-2025 Status: Inactive Start: 01-09-2025 meloxicam 15 m g tablet ; 1 (one) Tablet daily for 0 days Quantity: 15 {Tablet} Refills: 0 Ordered: 09-Jan-2025 MD Dali Min Start: 09-Jan-2025 Start: 07-03-2024 End: 07-08-2024 meloxicam 15 mg tablet ; 1 ( one) Tablet daily for 0 days Quantity: 5 {Tablet} Refills: 0 Ordered: 08-Jul-2024 Start: 03-Jul-2024 End: 08-Jul-2024 Status: Inactive Start: 03-11-2024 meloxicam 15 m g tablet ; 1 (one) Tablet daily for 0 days Quantity: 5 {Tablet} Refills: 0 Ordered: 11-Mar-2024 MD Tavares Joyce Start: 11-Mar-2024 Start: 01-24-2024 meloxicam 15 m g tablet ; 1 (one) Tablet daily for 0 days Quantity: 30 {Tablet} Refills: 0 Ordered: 24-Jan-2024 MD Dali Min Start: 24-Jan-2024 Start: 10-26-2023 meloxicam 15 m g tablet ; 1 (one) Tablet daily for 0 days Quantity: 30 {Tablet} Refills: 0 Ordered: 26-Oct-2023 MD Dali Min Start: 26-Oct-2023 Start: 10-26-2023 meloxicam 15 m g tablet ; 1 (one) Tablet daily for 0 days Quantity: 90 {Tablet} Refills: 0 Ordered: 26-Oct-2023 MD Dali Min Start: 26-Oct-2023 Comments: Mail order. Start: 10-26-2023 meloxicam 15 m g tablet ; 1 (one) Tablet daily for 0 days Quantity: 30 {Tablet} Refills: 0 Ordered: 26-Oct-2023 MD Dali Min Start: 26-Oct-2023 Start: 10-26-2023 meloxicam 15 m g tablet ; 1 (one) Tablet daily for 0 days Quantity: 90 {Tablet} Refills: 0 Ordered: 26-Oct-2023 MD Dali Min Start: 26-Oct-2023 Comments: Mail order. Start: 05-10-2022 take 1 tablet by yael once daily Meloxicam 15 MG Oral Tablet ; 1 (one) daily (15 MG) Start: 25-May-2022 Status: Inactive Comment on above: Take 15 mg by mouth once daily. Mail order. methocarbamol 750 mg oral tablet (4 sources) Muscle Relaxant Start: 023 End: 023 take 1 tablet by mouth three times daily methocarbamol (ROBAXIN) 750 mg tablet Take 1 tablet by mouth three times daily. 21 tablet 0 01/12/2023 05/15/2023 Discontinued Comment on above: Take 1 tablet by yael three times daily. predniSONE 20 mg oral tablet (20 sources) Start: 020 End: take 3 tablets by mouth once daily, then take 2 tablets by mouth once daily, then take 1 tablet by mouth once daily, then take 0.5 tablet by mouth once daily predniSONE 20 MG Oral Tablet ; Tablet for 0 days Quantity: 20 {Tablet} Refills: 0 Ordered: 01-Sep-2020 AMI Muller Start: 20-Apr-2020 End: 01-Sep-2020 Status: Inactive Comments: Take 3tabs qd for 3 days thenTake 2tabs qd for 3 days thenTake 1tab qd for 3 days thenTake 1/2tab qd for 4 days. Comment on above: Take 3tabs qd for 3 days thenTake 2tabs qd for 3 days thenTake 1tab qd for 3 days thenTake 1/2tab qd for 4 days. 72 hr scopolamine 0.0139 mg/hr transdermal system (20 sources) Anticholinergic Start: 025 End: Transderm-Scop 1 mg over 3 days transdermal patch ; 1 (one) Patch behind ear every 3 days for 0 days Quantity: 3 {Patch} Refills: 0 Ordered: 10-Apr-2025 AMI Muller Start: 29-Oct-2024 End: 10-Apr-2025 Status: Inactive Start: 02-08-2024 End: 06-10-2024 Transderm-Scop 1 mg over 3 d ays transdermal patch ; 1 (one) Patch behind ear every 3 days for 0 days Quantity: 2 {Patch} Refills: 0 Ordered: 10-Jun-2024 AMI Muller Start: 08-Feb-2024 End: 10-Jun-2024 Status: Inactive Start: 02-02-2024 Transderm-Scop 1 mg over 3 days transdermal patch ; 1 (one) Patch behind ear every 3 days for 0 days Quantity: 4 {Patch} Refills: 0 Ordered: 02-Feb-2024 MD Dali Min Start: 02-Feb-2024 Start: 11-29-2019 End: 02-11-2020 Transderm-Scop (1.5 MG) 1 MG /3DAYS Transdermal Patch 72 Hour ; 1 (one) Patch behind ear every 3 days for 0 days Quantity: 3 {Patch} Refills: 0 Ordered: 11-Feb-2020 Yohana AMI Titus Start: 29-Nov-2019 End: 11-Feb-2020 Status: Inactive semaglutide 3 mg oral tablet (20 sources) Start: 02-02-2024 End: 06-13-2024 semaglutide 3 mg tablet ; 1 (one) tablet daily for 0 days Quantity: 30 {Tablet} Refills: 3 Ordered: 13-Jun-2024 Yohana AMI Bellla Start: 13-Jun-2024 End: 13-Jun-2024 Status: Discontinued sildenafil 50 mg oral tablet (20 sources) Phosphodiesterase 5 Inhibitor Start: 10-29-2024 End: 04-10-2025 sildenafiL 50 mg tablet ; 1 (one) tablet as needed for 0 days Quantity: 10 {Tablet} Refills: 3 Ordered: 10-Apr-2025 AMI Muller Start: 29-Oct-2024 End: 10-Apr-2025 Status: Inactive Comments: Medication taken as needed. max 1 tab/24 hrs Start: 02-02-2024 sildenafiL 50 mg tablet ; 1 (one) tablet as needed for 0 days Quantity: 10 {Tablet} Refills: 3 Ordered: 02-Feb-2024 YohanaAMI Start: 02-Feb-2024 Comments: Medication taken as needed. max 1 tab/24 hrs Comment on above: Medication taken as needed. max 1 tab/24 hrs terbinafine 250 mg oral tablet (19 sources) Allylamine Antifungal Start: 06-12-2024 End: 04-10-2025 terbinafine HCL 250 mg tablet ; 1 (one) tablet daily for 0 days Quantity: 42 {Tablet} Refills: 1 Ordered: 10-Apr-2025 AMI Muller Start: 12-Jun-2024 End: 10-Apr-2025 Status: Inactive tiZANidine 4 mg oral tablet (19 sources) Central alpha-2 Adrenergic Agonist Start: 06-12-2024 End: 04-10-2025 tiZANidine 4 mg tablet ; 1 (one) tablet qhs for 0 days Quantity: 30 {Tablet} Refills: 3 Ordered: 10-Apr-2025 AMI Muller Start: 08-Jul-2024 End: 10-Apr-2025 Status: Inactive triamcinolone acetonide 0.25 mg/ml topical cream (20 sources) Corticosteroid Start: 04-14-2020 End: 09-01-2020 Triamcinolone Acetonide 0.025 % External Cream ; 1 (one) Application four times daily for 0 days Quantity: 80 {Gram} Refills: 1 Ordered: 01-Sep-2020 AMI Muller Start: 14-Apr-2020 End: 01-Sep-2020 Status: Inactive Start: 04-08-2020 End: 09-01-2020 Triamcinolone Acetonide 0.1 % External Cream ; 1 (one) Application(s) Application(s) two times daily for 0 days Quantity: 45 {Gram} Refills: 0 Ordered: 01-Sep-2020 AMI Muller Start: 08-Apr-2020 End: 01-Sep-2020 Status: Inactive Problems Active Problems Problem Classification Problem Date Documented Date Episodic/Chronic Allergic reactions (20 sources) Allergic contact dermatitis; Translations: [Allergic contact dermatitis, unspecified cause] 04-20-2020 Episodic Anxiety disorders (20 sources) Anxiety; Translations: [Anxiety disorder, unspecified] 06-16-2023 Chronic Bacterial infection; unspecified site (1 source) Infection due to Staphylococcus aureus; Translations: [Methicillin susceptible Staphylococcus aureus infection, unspecified site] Episodic Disorders of lipid metabolism (20 sources) Dyslipidemia; Translations: [Hyperlipidemia, unspecified] 06-16-2023 Chronic Hemorrhoids (16 sources) Internal hemorrhoids; Translations: [Other hemorrhoids] 02-24-2006 Episodic Mycoses (20 sources) Onychomycosis; Translations: [Tinea unguium] 06-12-2024 Episodic Nonspecific chest pain (20 sources) Chest pain; Translations: [Chest pain, unspecified] 05-18-2022 Episodic Other circulatory disease (20 sources) Elevated blood pressure; Translations: [Elevated blood-pressure reading, without diagnosis of hypertension] 02-02-2024 Episodic Other congenital anomalies (20 sources) Congenital accessory skin tag; Translations: [Other specified congenital malformations of skin] 04-26-2018 Chronic Other connective tissue disease (6 sources) History of cervical spine fusion; Translations: [Arthrodesis status] Episodic Other connective tissue disease (20 sources) Spasm of piriformis muscle; Translations: [Other muscle spasm] 06-16-2023 Episodic Other connective tissue disease (20 sources) Tendinitis; Translations: [Enthesopathy, unspecified] 04-26-2018 Episodic Other male genital disorders (20 sources) Male erectile dysfunction, unspecified; Translations: [Impotence of organic origin] 02-02-2024 Chronic Comment on above: sildenafil Other nervous system disorders (19 sources) Cervical myelopathy; Translations: [Disease of spinal cord, unspecified] Onset: 10-13-2022 Chronic Other nervous system disorders (1 source) Disease of spinal cord, unspecified; Translations: [Cervical myelopathy (HCC)] Onset: 11-01-2022 Chronic Other nervous system disorders (20 sources) Carpal tunnel syndrome of right wrist; Translations: [Carpal tunnel syndrome, right upper limb] 06-16-2023 Chronic Other nervous system disorders (20 sources) Cervical nerve root compression; Translations: [Cervical root disorders, not elsewhere classified] 06-16-2023 Chronic Comment on above: neurosurgery neurosurgery meloxic am Other nervous system disorders (20 sources) Numbness of upper limb; Translations: [Anesthesia of skin] 06-16-2023 Episodic Comment on above: Nerve conduction rose dy on 08/16/21 Other non-traumatic joint disorders (20 sources) Pain in left knee; Translations: [Pain in joint, lower leg] Onset: 01-08-2025 06-12-2024 Episodic Other nutritional; endocrine; and metabolic disorders (13 sources) Severe obesity; Translations: [Morbid (severe) obesity due to excess calories] Onset: 12-26-2022 Chronic Other nutritional; endocrine; and metabolic disorders (20 sources) Body mass index 40+ - severely obese; Translations: [Morbid (severe) obesity due to excess calories] Onset: 01-09-2023 01-09-2023 Chronic Other nutritional; endocrine; and metabolic disorders (20 sources) Body mass index 30+ - obesity; Translations: [Body mass index (BMI) 36.0-36.9, adult] 06-16-2023 Chronic Other screening for suspected conditions (not mental disorders or infectious disease) (20 sources) Patient encounter status; Translations: [Encounter for screening for malignant neoplasm of colon] 06-16-2023 Episodic Other skin disorders (20 sources) Ingrowing great toenail; Translations: [Ingrowing nail] 02-13-2020 Episodic Other upper respiratory infections (20 sources) Upper respiratory infection; Translations: [Acute upper respiratory infection, unspecified] 06-15-2017 Episodic Residual codes; unclassified (20 sources) Disorders of excessive somnolence; Translations: [Hypersomnia, unspecified] 02-02-2024 Chronic Residual codes; unclassified (20 sources) Family history of kidney disease; Translations: [Family history of disorders of kidney and ureter] 06-16-2023 Episodic Residual codes; unclassified (20 sources) History of clinical finding in subject; Translations: [Personal history of other specified conditions] 06-16-2023 Episodic Residual codes; unclassified (20 sources) Up-to-date with immunizations; Translations: [Personal history of other drug therapy] 06-16-2023 Episodic Residual codes; unclassified (20 sources) Non-smoker; Translations: [Other specified health status] 06-16-2023 Episodic Spondylosis; intervertebral disc disorders; other back problems (20 sources) Sciatica; Translations: [Sciatica, unspecified side] Onset: 06-20-2008 06-20-2008 Episodic Comment on above: Dr. Jovel Sprains and strains (2 sources) Strain of triceps brachii muscle; Translations: [Strain of muscle, fascia and tendon of triceps, left arm, initial encounter] 05-18-2022 Episodic Unclassified (20 sources) Well adult male - The patient feels well with no complaints. The patient has a balanced diet. The patient exercises none (Active lifestyle). The patient sleeps 7 hours per night. 06-16-2023 Unclassified (20 sources) Well adult male - The patient feels well with no complaints, has good energy level and is sleeping well. The patient takes supplemental vitamins. 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 The patient sleeps 6 hours per night. 09-04-2020 Unclassified (20 sources) Well adult male - The patient feels well with no complaints, has good energy level and is sleeping well. The patient takes no supplemental vitamins & iron. 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 The patient sleeps 6 hours per night. 09-14-2018 Viral infection (20 sources) Hand wart; Translations: [Viral wart, unspecified] 04-25-2022 Episodic Past or Other Problems Problem Classification Problem Date Documented Da te Episodic/Chronic Complications of surgical procedures or medical care (9 sources) Expected difficult tracheal intubation; Translations: [Failed or difficult intubation, initial encounter] Onset: 01-09-2023 01-09-2023 Episodic Other gastrointestinal disorders (1 source) Dysphagia, unspecified; Translations: [Dysphagia, unspecified] Onset: 04-25-2024 Episodic Unclassified (20 sources) Pre-operative clearance - Note for Pre-operative clearance: -Planning C3-6 posterior cervical decompression and fusion at [facility]. PAT 12/26 in [place]. 12-19-2022 Unclassified (20 sources) Well adult male - The patient feels well with minor complaints and is sleeping poorly. The patient has an inappropriate diet. The patient exercises daily. The patient sleeps 7 hours per night. Note for Well adult male: no colonoscopy previously 09-02-2022 Unclassified (20 sources) Follow up from hospital stay - Name of Hospital: [facility] ED. Date of Admission: 05/10/22. The patient was hospitalized for chest pain. Patient was discharged to home. Note for Follow up from hospital stay: -He went for chest pain and right arm numbness. His right arm still is numb. 05-12-2022 Unclassified (20 sources) [ADDITIONAL REASON] Transition into care - The patient is transitioning into care from an emergency room and a summary of care was reviewed. 05-12-2022 Unclassified (20 sources) Back pain - The onset of the back pain has been gradual and has been occurring for years. Note for Back pain: -has been seeing Dr Jovel and getting Meloxicam for back pain. Since he is not a surgical candidate he was returned to his PCP for continuation of rx. 04-25-2022 Unclassified (20 sources) [ADDITIONAL REASON] Warts - The warts are located on the right hand (thumb). 04-25-2022 Unclassified (20 sources) Well adult male - The patient feels well with no complaints, has good energy level and is sleeping well (most the time). The patient has a balanced diet. 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 The patient sleeps 7 hours per night. 08-13-2021 Unclassified (20 sources) Back pain - The onset of the back pain has been gradual and has been occurring in a persistent pattern for weeks. The course has been increasing. The pain is characterized as a dull ache, shooting and burning. The pain is located in the lower back and radiates to the lateral aspect of right leg. The symptoms are relieved by NSAIDs (uses ALeve). 12-09-2020 Unclassified (20 sources) Rash - The onset of the rash has been sudden and has been occurring in a persistent pattern for 4 days. The course has been increasing. The rash is characterized as red and raised above the skin. The rash was first seen on the upper extremity. It spread to the face, the neck, the trunk and the lower extremity. There has been associated itching. 04-10-2020 Unclassified (20 sources) Toenail problems - Note for Toenail problems: -Left great toenail seemed ingrown. He says his fiance worked on it and it seems improved but he wants it checked. 02-13-2020 Unclassified (20 sources) Hand pain - The onset of the hand pain has been gradual following no specific incident and has been occurring in a persistent pattern for 1 month. The course has been increasing. The hand pain is characterized as a moderate night pain. The hand pain is described as being located in the radial aspect of hand. There have been no relieving factors. There has been no associated painful ROM (thumbs only). There have been no previous diagnostic tests. There has been no previous evaluations. There has been no previous occupational therapy. Note for Hand pain: bilateral handshe also has skin tags -one in each axilla he would like removed 04-26-2018 Unclassified (20 sources) Cold Symptoms - Symptoms include runny nose, sore throat, dry cough (some SOB; no chest pain or dizziness) and general malaise (achy), but do not include nasal congestion, ear pain, fever or headache. The onset was gradual 2 week(s) ago. The symptoms occur constantly. The patient describes this as moderate in severity and worsening. Current treatment includes non-prescription cold medication. Medical history includes seasonal allergies, but patient denies history of recurrent sinusitis, recurrent strep pharyngitis, asthma, tonsillectomy or recurrent ear infections. Note for Upper respiratory infection: Eye has been twitching intermittently x 2 days. Also has a rash (went to urgent care in [place]) and they gave him 3-4 days of a steroid - it got better and was actually almost gone but then it worsened again. Does have psoriasis. No change in any skin care products prior to the rash starting. Minimal itching; no pain. 06-15-2017 Unclassified (5 sources) Transition into care - The patient is transitioning into care from an emergency room and a summary of care was reviewed. 05-12-2022 Unclassified (5 sources) [ADDITIONAL REASON] Follow up from hospital stay - Name of Hospital: [facility] ED. Date of Admission: 05/10/22. The patient was hospitalized for chest pain. Patient was discharged to home. Note for Follow up from hospital stay: -He went for chest pain and right arm numbness. His right arm still is numb. 05-12-2022 Unclassified (7 sources) Warts - The warts are located on the right hand (thumb). 04-25-2022 Unclassified (7 sources) [ADDITIONAL REASON] Back pain - The onset of the back pain has been gradual and has been occurring for years. Note for Back pain: -has been seeing Dr Jovel and getting Meloxicam for back pain. Since he is not a surgical candidate he was returned to his PCP for continuation of rx. 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 The knee pain is in the left knee. Note for Knee pain: -Painful even though he uses meloxicam regularly. Also asking about use of THC gummies. 06-12-2024 Unclassified (1 source) Toenail problems - Note for Toenail problems: -Had terbinafine in 2023. 04-10-2025 Unclassified (1 source) Toenail problems - The onset of the toenail problems has been gradual and they have been occurring in a persistent pattern. The toenail problems are described as moderate. The toenails are characterized as discolored and thickened. Note for Toenail problems: -Had terbinafine in 2023. He had partial resolution. He had some skin problems and went to dermatology and they told him that the rash was from the antifungal med and to stop taking it.Patient is concerned about the possibility of infection of the toe. He denies any pain, redness, or swelling. 04-10-2025 Results Test Name Value Interpretation Reference Range Facility [facility] 03-31-2025 CNOV Office Visit (NEAGCLM) SAHIL YOUNG ([id number]) 1975 M Date Time Provider Department 03/31/25 3:[address] [facility] During your visit today, we recorded the following information about you: Pulse Respiration Blood pressure Weight 79/minute 16/minute 118/[address] Hairston MD, PhD 03/31/2025 4:05 PM Signed NEUROSURGERY FOLLOW UP OFFICE NOTE Court Hairston MD, PhD Date of visit: March 31, 2025 Patient Name: Mr.Lonnie Shai Young Date of : 1975 Current Age: [age] year old Sex: male MRN/E# [id number] Last Office Visit: 01/31/2025 Chief Complaint: Patient presents with: Established Patient SUBJECTIVE: HPI On 02/13/2023 he presented to the office for his 1 month postoperative visit following a C3-6 posterior cervical decompression and fusion on 01/09/2023. He noted surgery had greatly improved his symptoms. He noted his right arm strength was about 85-95% improved. He was not able to fully lift his right arm up. He was taking Tylenol at times. It was recommended that he gradually return to work. He was to follow up in 3 months. At his last visit on 05/15/2023 he reported doing very well with about 95-97% improvement since surgery. He had continued paresthesia to right thumb, index and middle finger. He had complete resolution of neck pain, just had occasional neck stiffness. He was able to move his right arm above his head without any difficulties as well. 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 He denied any fevers, chills or drainage from incision site. He was extremely pleased with the outcome of his surgery thus far. 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 It was recommended he follow up in 6 months, but called in with worsening symptoms. At his last visit on he stated about a week ago he noted numbness and pain from his 1st 3 digits on the right up to his elbow. He noted the pain was constant and caused him to not be able to sleep at times. He noted he developed numbness to the left index finger. He was unsure of any new or worsened weakness to his arms. He noted moving helps relieved some of his pain, but staying still worsened his pain. He noted taking tylenol with some relief. He denied any weakness to his legs, falls, loss of bowel or bladder. He denied any neck pain. His imaging did not demonstrate any concerns with his screws. It was recommended he try taking ibuprofen for his symptoms. He was also prescribed gabapentin. He was referred to physical therapy. He was to follow up in 6 weeks. At his last visit on 10/09/2023 he stated he had been doing much better since his last visit. He noted he just finished with physical therapy and noted this helped his pain. He noted the horrible pain at night had since resolved. His numbness and tingling into the 1st 3 digits on the right had greatly improved. He continued with Gabapentin with relief. He denied any weakness. Overall, he was pleased with his surgery and progress. He had started weaning from his gabapentin. There was suspicion that his radiculopathy is a C7 radiculopathy. Although he did have mild sensory symptoms at this point he had no active interest in surgery and was quite pleased with his current status. It was recommended that he follow up in 6 months. At his last visit on 04/08/2024 he reported some neck soreness with improved paresthesia to his right thumb, index and middle fingers. Denied dexterity or imbalance issues. Denied any falls. He stated he had weaned off his gabapentin and had been treating his symptoms with tylenol and mobic. Denied fevers, chills or drainage from incision site-appeared to be well healed. Overall, he was pleased with the outcome of his surgery. Discussion for the possibility of adjacent segment degeneration developing was held. Due to this, it was recommended that he follow up once a year to keep an eye on the possibility, prompting his visit today. He presents for evaluation and plan of care. Symptoms: Neck soreness. 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 PAST MEDICAL HISTORY Diagnosis Date Carpal tunnel syndrome 02/28/2006 Cervical myelopathy (HCC) Difficult airway 01/09/2023 Internal hemorrhoids without mention of complication Lateral epicondylitis of elbow 02/28/2006 Medial epicondylitis of elbow 02/28/2006 Motion sickness PONV (postoperative nausea and vomiting) Sprain and strain of other specified sites of elbow and forearm PAST SURGICAL HISTORY Procedure Laterality Date ANKLE SURGERY (more content not included)... Normal [facility] 01-31-2025 [facility] Telephone (NEAGCLM) SAHIL YOUNG ([id number]) 1975 M Date Time Provider Department 01/31/25 [facility] HA[facility]ON [facility] During your visit today, we recorded the following information about you: Logan Charles 01/31/2025 2:55 PM Signed I left patient a vm to call when available to schedule yearly follow up no imaging needed Allergies As of Date: 01/31/2025 Noted Allergy Reaction PENICILLINS 12/26/2005 Comments: As a child- doesn;t remember reaction Date Reviewed: 04/08/2024 Reviewed by: Karlene Canales MA - Fully Assessed Prescriptions as of 01/31/2025 - meloxicam (MOBIC) 15 mg tablet - multivit with min-folic acid (MEN'S MULTIVITAMIN GUMMIES) 200 mcg chew Take by mouth once daily. Problem List As Of Date 01/31/2025 Noted Resolved INT HEMORRHOID W/O COMPL [K64.8] SCIATICA [M54.30] 06/20/2008 Cervical myelopathy (HCC) [G95.9] 10/13/2022 Preop testing [Z01.818] 12/26/2022 Class 3 severe obesity without serious comorbid*12/26/2022 Obesity, Class III, BMI >= 40 [E66.813] 01/09/2023 Difficult airway [T88.4XXA] 01/09/2023 Cervical stenosis of spinal canal [M48.02] 01/09/2023 Encounter Status:Closed by LOGAN CHARLES on 01/31/25 [facility] Knee 4 or More Viewson 07-09 Knee 4 or More Views [facility] Imaging Services [address] [place] [address] [id number] Knee 4 or More Views MR#: [id number] Acct: [id number] Name: SAHIL YOUNG Rep #: [id number] : 1975 M 49 From: Beth Gibbons PCP: Dr. Dali Min MD Status: REG CLI Study: Knee 4 or More Views Date of Exam: 07/09/24 Exam# [id number] Ordering Dr: Dali Min MD [id number] INDICATION: PAIN EXAMINATION/TECHNIQUE : X-RAY - LEFT XR Knee Complete 4 Views or More 4 VIEWS COMPARISON: No relevant prior comparison study available __ FINDINGS: BONES: No fracture demonstrated. Moderate joint space narrowing with subchondral sclerosis and osteophytes at all 3 joint compartments. JOINTS: No dislocation. SOFT TISSUES: Unremarkable. __ RAD/Knee 4 or More Views IMPRESSION: No evidence of fracture. Degenerative changes. Electronically Signed: Beth Rollins MD at 14:07 EDT , CC: Dr. Dali Min MD [employer]: Signed Normal [facility] Inital Evaluation (1) - PTon 07-02-2024 Inital Evaluation (1) - PT [facility] Physical Therapy [facility] [address] [place] [address] / REHABILITATION SERVICES INITIAL EVALUATION MR#: [id number] Acct: [id number] Name: SAHIL YOUNG Rep #: [id number] : 1975 49 From: Jeremias Riggins DPT Referring Dr.: Dr. Dali Min MD Status: REG RCR Insurance: [facility] [place] [id number] SELF PAY INSURANCE Patient's Visit Information Visit Information Visit Information: SAHIL YOUNG is a 49 year old M referred to Physical Therapy by Dr. Dali Min MD with a diagnosis of L knee pain. Date of Evaluation: 06/27/24 Physical Therapist: Jeremias Riggins DPT Visit Plan Frequency: 2x /Week Duration: 4 Weeks Plan: Start with ROM exercises to increase TKE and knee flexion Progress strengthening and mobility as tolerated Add in VASO for edema control. Subjective Subjective: Pt. is here today for her initial evaluation with diagnosis of L knee pain. Pt. reports having increased symptoms for a few months now. Pt. was reports no mech of injury. He has had increased swelling in his L leg causing increased tightness. Pt. reports he has been doing better over the past few days, but still having issues. He reports that his leg does not want to go fully straight. Pt. reports a lot of stiff after sitting in his car for longer periods of time. Pt. is hopeful to get back to all work activties without limitations. Pain L knee: Pain Intensity (Out of 10): 2 Pain Intensity Range: 0 and 4 Objective Objective: POSTURE: Pt. has decent posture,lacking TKE in stance. PALPATION: pt. has some tenderness at medial posterior aspect of his knee. Marked swelling in L knee compared to R side. NEURO: normal throughout. ROM: L knee: 0-10-109deg. Pain reported with all motions. MMT: 5/5 throughout without increase in symptoms. but lacking TKE seoncdary to pain GAIT: pt. ambulates with no AD, but does lack TKE during L stance phase. + disco test, + Melissa Balance/Special Test Scores Lower Extremity Functional Score: 52 Goals Goal 1:: LTG: Pt. to be I with HEP. Goal Time Frame: 4-6 Weeks Goal 2:: STG: PT. to have full L knee ROM without increase in symptoms. Goal Time Frame: 2-4 Weeks Goal 3:: LTG: Pt. to be able to complete all work activities without increase in symptoms. Goal Time Frame: 4-6 Weeks Rehabilitation Potential Physical Therapy Diagnosis: Pt. has signs and symtpoms consistent with L knee pain. He has lack of L knee ROM causing increased pain with gait and ambualtion. Pt. would benefit from PT to address the above limitations. Rehabilitation Potential: Good Anticipated Interventions Patient/Client Instruction: Educate patient on: Condition, Plan of Care, Risk Factors and Benefits of Fitness Program For the Purpose of:: To improve decision making, To facilitate caregiver knowledge, To improve self management, To prevent re-injury and To improve ability to perform tasks related to life management Therapeutic Exercise to Include: Strength training, Power training, Postural training, Flexibilty training, Gait and locomotor training, Passive ROM and Active ROM For the Purpose of:: To decrease pain, To increase ROM, To improve nutrient delivery to tissue, To increase oxygenation perfusion and To improve muscle performance and motor function Text: Thank you for the opportunity to evaluate your patient. For Medicare and Medicare HMO plans, please review the plan of care and approve it. It will need to be FAXED BACK to us at [phone] for Medicare purposes. For Medicare only, by signing this I certify the plan of care. Please let me know if there are questions or concerns regarding this plan of care. Physician Signature: Date : 07/02/24 1432 CC: Dr. Dali Min MD CLS Signed Normal [facility] CNOVon 04-08-2024 [facility] Office Visit (NEAGCLM) SAHIL YOUNG ([id number]) 1975 M Date Time Provider Department 04/08/24 3:[address] [facility] During your visit today, we recorded the following information about you: Pulse Blood pressure Weight Height 94/minute 157/94 141.[address] Hairston MD, PhD 04/08/2024 4:28 PM Signed NEUROSURGERY FOLLOW UP OFFICE NOTE Court Hairston MD, PhD Date of visit: April 08, 2024 Patient Name: Mr.Lonnie Shai Young Date of : 1975 Current Age: [age] year old Sex: male MRN/E# [id number] Last Office Visit: Visit date not found Chief Complaint: Patient presents with: Established Patient SUBJECTIVE: HPI On 02/13/2023 he presented to the office for his 1 month postoperative visit following a C3-6 posterior cervical decompression and fusion on 01/09/2023. He noted surgery had greatly improved his symptoms. He noted his right arm strength was about 85-95% improved. He was not able to fully lift his right arm up. He was taking Tylenol at times. It was recommended that he gradually return to work. He was to follow up in 3 months. At his last visit on 05/15/2023 he reported doing very well with about 95-97% improvement since surgery. He had continued paresthesia to right thumb, index and middle finger. He had complete resolution of neck pain, just had occasional neck stiffness. He was able to move his right arm above his head without any difficulties as well. 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 He denied any fevers, chills or drainage from incision site. He was extremely pleased with the outcome of his surgery thus far. 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 It was recommended he follow up in 6 months, but called in with worsening symptoms. At his last visit on he stated about a week ago he noted numbness and pain from his 1st 3 digits on the right up to his elbow. He noted the pain was constant and caused him to not be able to sleep at times. He noted he developed numbness to the left index finger. He was unsure of any new or worsened weakness to his arms. He noted moving helps relieved some of his pain, but staying still worsened his pain. He noted taking tylenol with some relief. He denied any weakness to his legs, falls, loss of bowel or bladder. He denied any neck pain. His imaging did not demonstrate any concerns with his screws. It was recommended he try taking ibuprofen for his symptoms. He was also prescribed gabapentin. He was referred to physical therapy. He was to follow up in 6 weeks. At his last visit on 10/09/2023 he stated he had been doing much better since his last visit. He noted he just finished with physical therapy and noted this helped his pain. He noted the horrible pain at night had since resolved. His numbness and tingling into the 1st 3 digits on the right had greatly improved. He continued with Gabapentin with relief. He denied any weakness. Overall, he was pleased with his surgery and progress. He had started weaning from his gabapentin. There was suspicion that his radiculopathy is a C7 radiculopathy. Although he did have mild sensory symptoms at this point he had no active interest in surgery and was quite pleased with his current status. It was recommended that he follow up in 6 months, prompting his visit today. He reports some neck soreness with improved paresthesia to his right thumb, index and middle fingers. Denies dexterity or imbalance issues. Denies any falls. He states he had weaned off his gabapentin and has been treating his symptoms with tylenol and mobic. Denies fevers, chills or drainage from incision site-appears to be well healed. Overall, he is pleased with the outcome of his surgery. Symptoms: Neck soreness. 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 PAST MEDICAL HISTORY Diagnosis Date Carpal tunnel syndrome 02/28/2006 Cervical myelopathy (HCC) Difficult airway 01/09/2023 Internal hemorrhoids without mention of complication Lateral epicondylitis of elbow 02/28/2006 Medial epicondylitis of elbow 02/28/2006 Motion sickness PONV (postoperative nausea and vomiting) Sprain and strain of other specified sites of elbow and forearm PAST SURGICAL HISTORY Procedure Laterality Date ANKLE SURGERY HX Right 2010 ANKLE SURGERY HX Left 2008 x2 2007 and 2008 ARTHROSCOPY KNEE DIAGNOSTIC W/WO SYNOVIAL BX SPX age 17 Arthroscopy, knee Left NECK SURGERY HX 01/09/2023 C3-6 Decompress (more content not included)... Normal [facility] Modified Barium Swallow Stud yon 04-08-2024 Modified Barium Swallow Study [facility] Speech Pathology [address] [place] [address] Modified Barium Swallow Study MR#: [id number] Acct: [id number] Name: SAHIL YOUNG Rep #: [id number] : 1975 48 From: Diane Quiles M.A., [facility] Modified Barium Swallow Patient Information Study Date: 04/08/24 Study Time: 12:45 Direct Billable Minutes: 81 Total Minutes procedure reportin Diagnosis: Dysphagia R13.10 Referring Physician: Andres Fernandes V Reason for Referral: Objectively assess swallow function, assess risk for aspiration, and determine recommendations for least restrictive diet textures and compensatory strategies to improve safety of swallow. Medical History: PMH: Cervical fusion (01/09/2023). Pt reports having hyperreflexive gag since 3-4 months following his cervical fusion. Certain times that he goes to brush his teeth or take a pill, he feels as if he is going to vomit. He had a choking incident on steak 4 years ago and beat his chest to expel the steak. Of note, he reports globus sensation and says at times he coughs out white. He has had heartburn in the past, but not recently. Current Diet Ordered: Regular textures / Thin liquids Dentition: WNL and Natural Teeth Mental Status: WNL Respiratory Status: Oxygenating on Room Air Penetration-Aspiratio n Scale Penetration-Aspiratio n Scale: OBJECTIVE ASSESSMENT OF SWALLOW FUNCTION (QUANTITATIVE ??? PER TRIAL): PENETRATION / ASPIRATION SCALE (DURBIN): 1 = does not enter airway 2 = enters airway/above vocal folds/ejected 3 = enters airway/above vocal folds/not ejected 4 = enters airway/contacts vocal folds/ejected 5 = enters airway/contacts vocal folds/not ejected 6 = enters airway/below vocal folds/ejected 7 = enters airway/below vocal folds/not ejected despite effort 8 = enters airway/below vocal folds/no effort VIDEOFLOROSCOPIC SCALE SCORE (DURBIN): Grade I = aspiration of material that has penetrated into the laryngeal vestibule, intact cough reflex Grade II = aspiration < 10 % of the bolus, intact cough reflex Grade III = aspiration of < 10 % of the bolus, reduced cough reflex or aspiration of > 10 % of the bolus, intact cough reflex Grade IV = aspiration of > 10 % of the bolus, reduced cough reflex Penetration-Aspiratio n Scale Score Thin Liquid via teaspoon: Result: 1= does not enter airway Thin Liquid via large single sip: cup: Result: 1= does not enter airway [place] Thick Liquid via large single sip: cup: Result: 1= does not enter airway Pudding via teaspoon: Result: 1= does not enter airway Comment: Esophageal screen - Complete clearance. 09/26 Cookie: Result: 1= does not enter airway (Esophageal screen - Mild retention in lower esophagus with retrograde flow to the mid esophagus remaining well below the UES.) Comment: Esophageal screen - Mild retention in lower esophagus with retrograde flow to the mid esophagus remaining well below the UES. Thin Liquid via sequential sips:straw: Result: 1= does not enter airway Comment: Esophageal screen - Mild retention in lower esophagus with retrograde flow to the mid esophagus remaining well below the UES. Oral Phase Labial Seal: Interlabial escape, no progression to anterior lip Tongue Control During Bolus Hold: Posterior escape of greater than half of bolus (sequential thin) Bolus Preparation/Masticati on: Timely and efficient chewing and mashing Bolus Transport/Lingual Motion: Brisk tongue motion Oral Residue: Residue collection on oral structures (large thin by cup, pudding, cookie) Pharyngeal Phase Initiation of Pharyngeal Swallow: Bolus head in pyriforms Soft Palate Elevation: Trace column of contrast/air between soft palate and pharyngeal wall Laryngeal Elevation: Comp. Superior move thyroid cart w/comp. apprx arytenoid cart-epig pet Anterior Hyoid Excursion: Partial anterior movement Epiglottic Movement: Complete inversion Laryngeal Vestibule Closure at Height of Swallow: Complete; no air/contrast in laryngeal vestibule Pharyngeal Stripping Wave: Present - complete Pharyngoesophageal Segment Opening: Complete distension and complete duration; no obstruction of flow Tongue Base Retraction: Narrow column of contrast between tongue base post. pharyngeal wall Pharyngeal Residue: Trace residue within or on pharyngeal structures Esophageal Phase Esophageal Clearance: Esophageal retention w/ retrograde flow below pharyngoesophageal seg. Diagnosis/Impression Diagnosis: Oropharyngeal swallow function grossly WNL Impression: Oropharyngeal swallow function grossly WNL. Piecemeal deglutition of large thin by cup, pudding, cookie. Posterior loss of sequential thin liquids via straw to the pyriforms; otherwise, good bolus control and timely swallows. Pt demonstrated good airway closure during the swallow throughout the study and demonstrated no laryngeal penetration or aspiration. Trace pharyngeal residues after t (more content not included)... Normal [facility] COMPREHENSIVE METABOLIC PANE [facility] 06-09-2023 Albumin [Mass/Vol] 4.5 g/dL Normal 3.6-5.1 [facility] Comment on above: Performed By: #### 1 0876, 6582 #### [facility] [address], [address] [place] [id number] Aerospace Manager: Tavon Gonzalez MD Albumin/Globulin [Mass ratio] 1.8 {ratio} Normal 1.0-2.5 [facility] Comment on above: Performed By: #### 1 0231, 4300 #### [facility] of [address], [address] [place] [address] Aerospace Manager: Tavon Gonzalez MD ALP [Catalytic activity/Vol] 36 U/L Normal 36-130 [facility] Comment on above: Performed By: #### 1 023, 7600 #### [facility] of [address], [address] [place] [address] Aerospace Manager: Tavon Gonzalez MD ALT [Catalytic activity/Vol] 43 U/L Normal 9-46 [facility] Comment on above: Performed By: #### 1 023, 7600 #### [facility] of [address], [address] [place] [address] Aerospace Manager: Tavon Gonzalez MD AST [Catalytic activity/Vol] 14 U/L Normal 10-40 [facility] Comment on above: Performed By: #### 1 230, 7600 #### [facility] of [address], [address] [place] [address] Aerospace Manager: Tavon Gonzalez MD Bilirubin [Mass/Vol] 0.6 mg/dL Normal 0.2-1.2 [facility] Comment on above: Performed By: #### 1 230, 7600 #### [facility] of [address], [address] [place] [address] Aerospace Manager: Tavon Gonzalez MD BUN/CREATININE RATIO SEE NOTE: Normal 6-22 [facility] Comment on above: Result Comment: Not Reported: BUN and Creatinine are within reference range. Performed By: #### 1 023, 7600 #### [facility] of [address], [address] [place] [address] Aerospace Manager: Tavon Gonzalez MD Calcium [Mass/Vol] 9.0 mg/dL Normal 8.6-10.3 [facility] Comment on above: Performed By: #### 1 023, 7600 #### [facility] of [address], [address] [place] [address] Aerospace Manager: Tavon Gonzalez MD Chloride [Moles/Vol] 104 mmol/L Normal 98-110 [facility] Comment on above: Performed By: #### 1 023, 7600 #### [facility] [place] [address] Aerospace Manager: Tavon Gonzalez MD CO2 [Moles/Vol] 28 mmol/L Normal 20-32 [facility] Comment on above: Performed By: #### 1 023, 7600 #### [facility] [place] [address] Aerospace Manager: Tavon Gonzalez MD Creatinine [Mass/Vol] 0.97 mg/dL Normal 0.60-1.[address] [facility] Comment on above: Performed By: #### 1 023, 7600 #### [facility] [place] [address] Aerospace Manager: Tavon Gonzalez MD GFR/1.73 sq M.predicted among non-blacks MDRD (S/P/Bld) [Vol rate/Area] 96 mL/min/{1.73_m2} Normal > OR = 60 [facility] Comment on above: Performed By: #### 1 023, 7600 #### [facility] [place] [address] Aerospace Manager: Tavon Gonzalez MD Globulin (S) [Mass/Vol] 2.5 g/dL Normal 1.9-3.7 [facility] Comment on above: Performed By: #### 1 023, 7600 #### [facility] [place] [address] Aerospace Manager: Tavon Gonzalez MD Glucose [Mass/Vol] 93 mg/dL Normal 65-99 [facility] Comment on above: Result Comment: Fasting reference interval Performed By: #### 1 0231, 7600 #### [facility] [place] [address] Aerospace Manager: Tavon Gonzalez MD Potassium [Moles/Vol] 4.2 mmol/L Normal 3.5-5.[address] [facility] Comment on above: Performed By: #### 1 0231, 7600 #### [facility] [place] [address] Aerospace Manager: Tavon Gonzalez MD Protein [Mass/Vol] 7.0 g/dL Normal 6.1-8.1 [facility] Comment on above: Performed By: #### 1 0231, 7600 #### [facility] [place] [address] Aerospace Manager: Tavon Gonzalez MD Sodium [Moles/Vol] 140 mmol/L Normal 135-146 [facility] Comment on above: Performed By: #### 1 0231, 7600 #### [facility] [place] [address] Aerospace Manager: Tavon Gonzalez MD Urea nitrogen [Mass/Vol] 21 mg/dL Normal 7-25 [facility] Comment on above: Performed By: #### 1 0231, 7600 #### [facility] [place] [address] Aerospace Manager: Tavon Gonzalez MD LIPID PANEL, [facility] 05-26 Cholesterol [Mass/Vol] 175 mg/dL Normal <200 [facility] Comment on above: Performed By: #### 1 0231, 7600 #### [facility] [place] [address] Aerospace Manager: Tavon Gonzalez MD Cholesterol in HDL [Mass/Vol] 44 mg/dL Normal > OR = 40 [facility] Comment on above: Performed By: #### 1 0231, 7600 #### [facility] [place] [address] Aerospace Manager: Tavon Gonzalez MD Cholesterol in LDL [Mass/Vol] 100 mg/dL High [facility] Comment on above: Result Comment: Refe rence range: <100 Desirable range <100 mg/dL for primary prevention; <70 mg/dL for patients with CHD or diabetic patients with > or = 2 CHD risk factors. LDL-C is now calculated using the Kayla calculation, which is a validated novel method providing better accuracy than the Friedewald equation in the estimation of LDL-C. Alexis SS et al. DARIN. 2013;310(19): 8793-1684 (http://education.Hashtrack/faq/KXC139) Performed By: #### 1 023, 7600 #### [facility] [address], [address] [place] [address] Aerospace Manager: Tavon Gonzalez MD Cholesterol.total/Choles terol in HDL [Mass ratio] 4.0 {ratio} Normal <5.0 [facility] Comment on above: Performed By: #### 1 023, 7600 #### [facility] [place] [address] Aerospace Manager: Tavon Gonzalez MD NON HDL CHOLESTEROL 131 mg/dL (calc) High <130 [facility] Comment on above: Result Comment: For patients with diabetes plus 1 major ASCVD risk factor, treating to a non-HDL-C goal of <100 mg/dL (LDL-C of <70 mg/dL) is considered a therapeutic option. Performed By: #### 1 023, 7600 #### [facility] [place] [address] Aerospace Manager: Tavon Gonzalez MD Triglyceride [Mass/Vol] 185 mg/dL High <150 [facility] Comment on above: Performed By: #### 1 023, 7600 #### [facility] [place] [address] Aerospace Manager: Tavon Gonzalez MD Laboratory - Chemistry and C hemistry - challengeon 06-07-2023 Albumin [Mass/Vol] 4.5 g/dL Normal 3.6 - 5.1 g/dL [facility] Albumin/Globulin [Mass ratio] 1.8 {ratio} Normal 1.0 - 2.5 [facility], [facility].; [facility] ALP [Catalytic activity/Vol] 36 U/L Normal 36 - 130 U/L [facility], [facility].; [facility], [facility]. ALT [Catalytic activity/Vol] 43 U/L Normal 9 - 46 U/L [facility].; [facility], [facility]. AST [Catalytic activity/Vol] 14 U/L Normal 10 - 40 U/L [facility], [facility].; [facility], [facility]. Bilirubin [Mass/Vol] 0.6 mg/dL Normal 0.2 - 1 .2 mg/dL [facility], [facility].; [facility], [facility]. Calcium [Mass/Vol] 9.0 mg/dL Normal 8.6 - 10. 3 mg/dL [facility], [facility].; [facility], [facility]. Chloride [Moles/Vol] 104 mmol/L Normal 98 - 11 0 mmol/L [facility], [facility].; [facility], [facility]. Cholesterol [Mass/Vol] 175 mg/dL Normal [facility], [facility].; [facility], [facility] Cholesterol in HDL [Mass/Vol] 44 mg/dL Normal [facility], [facility].; [facility], [facility]. Cholesterol in LDL [Mass/Vol] 100 mg/dL Abnormal [facility], [facility].; [facility], [facility]. CO2 [Moles/Vol] 28 mmol/L Normal 20 - 32 mmol/L [facility], [facility].; [facility], [facility]. Creatinine [Mass/Vol] 0.97 mg/dL Normal 0.60 - 1.29 mg/dL [facility], [facility].; [facility], [facility]. GFR/1.73 sq M.predicted among non-blacks MDRD (S/P/Bld) [Vol rate/Area] 96 mL/min/{1.73_m2} Normal [facility], [facility].; [facility], [facility]. Glucose [Mass/Vol] 93 mg/dL Normal 65 - 99 mg/dL [facility], [facility].; [facility], [facility]. Potassium [Moles/Vol] 4.2 mmol/L Normal 3.5 - 5.3 mmol/L [facility], [facility].; [facility], [facility]. Protein [Mass/Vol] 7.0 g/dL Normal 6.1 - 8.1 g/dL [facility] [employer]. Sodium [Moles/Vol] 140 mmol/L Normal 135 - 146 mmol/L [employer] [email or web address].; [employer]. Triglyceride [Mass/Vol] 185 mg/dL Abnormal [email or web address].; [employer], [employer]. Urea nitrogen [Mass/Vol] 21 mg/dL Normal 7 - 25 mg/d L [employer] [email or web address].; [employer]. No Panel Informationon 06-07 BUN/CREATININE RATIO SEE NOTE: Normal 6 - 22 [facility] [employer] [email or web address].; [employer], [employer]. CHOL/HDLC RATIO 4.0 Normal [facility].; [employer]. GLOBULIN 2.5 Normal 1.9 - 3.7 [employer].; [employer], [employer]. NON HDL CHOLESTEROL 131 Abnormal [facility] [employer] [email or web address].; [employer] [email or web address]. [facility] Telephone (PODCCP) SAHIL YOUNG Shai ([id number]) 1975 M Date Time Provider Department [facility]/18[facility] During your visit today, we recorded the following information about you: Dyllan Macias 01/18/2023 11:45 AM Signed PATIENT INFORMATION Record ID: [id number] Patient Name: Sahil [facility]: [facility] [place]: [place] Attending: Court [facility]: [facility] INSTRUCTIONS All Clear SN to remind patient of next upcoming appointment date, time, location All Clear All Clear All Clear SURVEY INFORMATION Medical/Nurse Air Traffic Control Manager: Dyllan Barlow 1. Your discharge instructions are important in guiding you through the recovery process. Is there anything I could help you clarify on your discharge instructions? (Standard Question) No 2. Do you have your follow up appointment related to your hospital stay scheduled within the next 30 days? (Standard Question) Yes 3. Do you have all the necessary equipment and supplies at home? (Standard Question) Yes 4. Many patients have concerns about their medications once they are home. Do you have any questions about getting or taking your medications? (Standard Question) No 5. Do you have any new or different symptoms? (Standard Question) No Allergies As of Date: 01/18/2023 Noted Allergy Reaction PENICILLINS 12/26/2005 Comments: As a child- doesn;t remember reaction Date Reviewed: 01/10/2023 Reviewed by: Darline Blair RN - Fully Assessed Reason for Visit: Follow Up Phone Call [[phone]] Cmt: All clear Prescriptions as of 01/18/2023 - methocarbamol (ROBAXIN) 750 mg tablet Take 1 tablet by mouth three times daily. - oxyCODONE-acetaminoph en (PERCOCET) 5-325 mg tablet Take 1-2 tablets by mouth every 6 hours as needed. Do not take more than 6 tablets per day - multivit with min-folic acid (MEN'S MULTIVITAMIN GUMMIES) 200 mcg chew Take by mouth once daily. - LORazepam (ATIVAN) 1 mg tablet Take 1 mg by mouth every 8 hours as needed. Problem List As Of Date 01/18/2023 Noted Resolved INT HEMORRHOID W/O COMPL [K64.8] SCIATICA [M54.30] 06/20/2008 Cervical myelopathy (HCC) [G95.9] 10/13/2022 Preop testing [Z01.818] 12/26/2022 Class 3 severe obesity without serious comorbid*12/26/2022 Obesity, Class III, BMI >= 40 [E66.01] 01/09/2023 Difficult airway [T88.4XXA] 01/09/2023 Cervical stenosis of spinal canal [M48.02] 01/09/2023 Encounter Status:Closed by DYLLAN QUINTERO on 01/18/23 Normal [facility] CONFIRM BLOOD TYPEon 023 ABO O [facility] Rh Nom (Bld) Positive [facility] XR CERV OTHER 4V AP/LAT/FLX/ EXTon 11-04-2022 IMPRESSION: Cervical spine mild degenerative changes. Border Police: MIRIAM Transcribe Date/Time: Nov 04 2022 12:55P Dictated by : KENDY SALINAS MD This examination was interpreted and the report reviewed and electronically signed by: KENDY SALINAS MD on Nov 04 2022 12:58PM [facility] DIVISION OF RADIOLOGY * * *Final Report* * * DATE OF EXAM: Nov 01 2022 3:39PM WOX 5310 - XR CERVICAL 4V AP/LAT/FLX/EXT / PROCEDURE REASON: Cervical myelopathy (HCC) * * * * Physician Interpretation * * * * EXAM TITLE: XR CERVICAL 4V AP/LAT/FLX/EXT EXAM DATE/TIME: 11/01/2022 3:39 PM COMPARISON: None. CLINICAL INDICATION/HISTORY: Cervical myelopathy. TECHNIQUE: AP, lateral, lateral extension, lateral flexion and swimmer's views of the cervical spine are presented. FINDINGS: No fractures or subluxations are noted. No change in alignment of the cervical spine with lateral extension and lateral flexion. The disc spaces are well preserved. There is mild osteophyte formation. Focal ossification of the anterior longitudinal ligament is also noted. The prevertebral soft tissues are normal. DIVISION OF RADIOLOGY Provider, [facility] - 11/04/2022 * * *Final Report* * * DATE OF EXAM: Nov 01 2022 3:39PM [facility] 5310 - XR CERVICAL 4V AP/LAT/FLX/EXT / PROCEDURE REASON: Cervical myelopathy (HCC) * * * * Physician Interpretation * * * * EXAM TITLE: XR CERVICAL 4V AP/LAT/FLX/EXT EXAM DATE/TIME: 11/01/2022 3:39 PM COMPARISON: None. CLINICAL INDICATION/HISTORY: Cervical myelopathy. TECHNIQUE: AP, lateral, lateral extension, lateral flexion and swimmer's views of the cervical spine are presented. FINDINGS: No fractures or subluxations are noted. No change in alignment of the cervical spine with lateral extension and lateral flexion. The disc spaces are well preserved. There is mild osteophyte formation. Focal ossification of the anterior longitudinal ligament is also noted. The prevertebral soft tissues are normal. IMPRESSION IMPRESSION: Cervical spine mild degenerative changes. Border Police: MIRIAM Transcribe Date/Time: Nov 04 2022 12:55P Dictated by : KENDY SALINAS MD This examination was interpreted and the report reviewed and electronically signed by: KENDY SALINAS MD on Nov 04 2022 12:58PM EST [facility] XR CERV OTHER 4V AP/LAT/FLX/ EXTOrdered By: [facility] Provider on 11-04-2022 [facility] XR CERV OTHER 4V AP/LAT/FLX/ EXTon 11-01-2022 Radiology Study observation (narrative) [facility] XR CERVICAL 4V AP/LAT/FLX/EX Ton 11-01-2022 XR CERVICAL 4V AP/LAT/FLX/EXT * * *Final Report* * * DATE OF EXAM: Nov 01 2022 3:39PM [facility] 5310 - XR CERVICAL 4V AP/LAT/FLX/EXT / PROCEDURE REASON: Cervical myelopathy (HCC) * * * * Physician Interpretation * * * * EXAM TITLE: XR CERVICAL 4V AP/LAT/FLX/EXT EXAM DATE/TIME: 11/01/2022 3:39 PM COMPARISON: None. CLINICAL INDICATION/HISTORY: Cervical myelopathy. TECHNIQUE: AP, lateral, lateral extension, lateral flexion and swimmer's views of the cervical spine are presented. FINDINGS: No fractures or subluxations are noted. No change in alignment of the cervical spine with lateral extension and lateral flexion. The disc spaces are well preserved. There is mild osteophyte formation. Focal ossification of the anterior longitudinal ligament is also noted. The prevertebral soft tissues are normal. IMPRESSION: Cervical spine mild degenerative changes. Border Police: [facility] Transcribe Date/Time: Nov 04 2022 12:55P Dictated by : KENDY SALINAS MD This examination was interpreted and the report reviewed and electronically signed by: KENDY SALINAS MD on Nov 04 2022 12:58PM EST [id number] Normal [facility] Laboratory - Microbiology an d Antimicrobial susceptibilityOrdered By: Dr. Abrams on 10-04-2022 SARS-CoV-2 (COVID-19) RNA NGOZI+probe Ql (Unsp spec) Not detected Not Detect [facility] Comment on above: Normal Reference Ran ge: Not DetectedMethod:(RT-PCR) real-time reverse transcriptase PCRLuminex IRVING Instrument*The Food and Drug Administration (FDA) has issued an Emergency Use Authorization (EAU) for the IRVING SARS-CoV-2 Assay for the rapid detection of the virus that causes COVID-19. This test has been validated, but the FDAs independent review of this validation is pending.*Negative results do not preclude infection and should not be used as the sole basis for treatment or patient management. Optimum specimen types and timing for peak viral levels during infections caused by SARS-CoV-2 have not been determined. Collection of multiple specimens from the same patient may be necessary to detect the virus. The possibility of a false negative result should be considered if the patient has clinical presentation or has had recent exposure. COMPREHENSIVE METABOLIC PANE Mahesh 09-03-2022 Albumin [Mass/Vol] 4.5 g/dL Normal 3.6-5.1 [facility] Comment on above: Performed By: #### 1 0231, 6410 #### [facility] [place] [address] Aerospace Manager: Tavon Gonzalez MD Albumin/Globulin [Mass ratio] 1.7 {ratio} Normal 1.0-2.5 [facility] Comment on above: Performed By: #### 1 0231, 7600 #### [facility] [place] [address] Aerospace Manager: Tavon Gonzalez MD ALP [Catalytic activity/Vol] 42 U/L Normal 36-130 [facility] Comment on above: Performed By: #### 1 0231, 7600 #### [facility] [place] [address] Aerospace Manager: Tavon Gonzalez MD ALT [Catalytic activity/Vol] 43 U/L Normal 9-46 [facility] Comment on above: Performed By: #### 1 0231, 7600 #### [facility] [place] [address] Aerospace Manager: Tavon Gonzalez MD AST [Catalytic activity/Vol] 16 U/L Normal 10-40 [facility] Comment on above: Performed By: #### 1 0231, 7600 #### [facility] [place] [address] Aerospace Manager: Tavon Gonzalez MD Bilirubin [Mass/Vol] 0.7 mg/dL Normal 0.2-1.2 [facility] Comment on above: Performed By: #### 1 0231, 7600 #### [facility] [place] [address] Aerospace Manager: Tavon Gonzalez MD BUN/CREATININE RATIO NOT APPLICABLE Normal 6-22 [facility] Comment on above: Performed By: #### 1 023, 7600 #### [facility] [place] [address] Aerospace Manager: Tavon Gonzalez MD Calcium [Mass/Vol] 8.7 mg/dL Normal 8.6-10.3 [facility] Comment on above: Performed By: #### 1 023, 7600 #### [facility] [place] [address] Aerospace Manager: Tavon Gonzalez MD Chloride [Moles/Vol] 105 mmol/L Normal 98-110 [facility] Comment on above: Performed By: #### 1 023, 7600 #### [facility] [place] [address] Aerospace Manager: Tavon Gonzalez MD CO2 [Moles/Vol] 26 mmol/L Normal 20-32 [facility] Comment on above: Performed By: #### 1 0231, 7600 #### [facility] [place] [address] Aerospace Manager: Tavon Gonzalez MD Creatinine [Mass/Vol] 0.95 mg/dL Normal 0.60-1.[address] [facility] Comment on above: Performed By: #### 1 0231, 7600 #### [facility] [place] [address] Aerospace Manager: Tavon Gonzalez MD GFR/1.73 sq M.predicted among non-blacks MDRD (S/P/Bld) [Vol rate/Area] 99 mL/min/{1.73_m2} Normal > OR = 60 [facility] Comment on above: Result Comment: The eGFR is based on the CKD-EPI 2020 equation. To calculate the new eGFR from a previous Creatinine or Cystatin C result, go to https://www.kidney.org/professionals/ kdoqi/gfr%5Fcalculator Performed By: #### 1 0231, 7600 #### [facility] [place] [address] Aerospace Manager: Tavon Gonzalez MD Globulin (S) [Mass/Vol] 2.6 g/dL Normal 1.9-3.7 [facility] Comment on above: Performed By: #### 1 0231, 7600 #### [facility] [place] [address] Aerospace Manager: Tavon Gonzalez MD Glucose [Mass/Vol] 97 mg/dL Normal 65-99 [facility] Comment on above: Result Comment: Fasting reference interval Performed By: #### 1 023, 7600 #### [facility] [place] [address] Aerospace Manager: Tavon Gonzalez MD Potassium [Moles/Vol] 4.4 mmol/L Normal 3.5-5.[address] [facility] Comment on above: Performed By: #### 1 023, 7600 #### [facility] [place] [address] Aerospace Manager: Tavon Gonzalez MD Protein [Mass/Vol] 7.1 g/dL Normal 6.1-8.1 [facility] Comment on above: Performed By: #### 1 0231, 7600 #### [facility] [place] [address] Aerospace Manager: Tavon Gonzalez MD Sodium [Moles/Vol] 139 mmol/L Normal 135-146 [facility] Comment on above: Performed By: #### 1 0231, 7600 #### [facility] [address] [place] [address] Aerospace Manager: Tavon Gonzalez MD Urea nitrogen [Mass/Vol] 16 mg/dL Normal 7-25 [facility] Comment on above: Performed By: #### 1 0231, 7600 #### [facility] [address], [address] [place] [address] Aerospace Manager: Tavon Gonzalez MD LIPID PANEL, [place] [address] Cholesterol [Mass/Vol] 135 mg/dL Normal <200 [facility] Comment on above: Performed By: #### 1 0231, 7600 #### [facility] [address], [address] [place] [address] Aerospace Manager: Tavon Gonzalez MD Cholesterol in HDL [Mass/Vol] 33 mg/dL Low > OR = 40 [facility] Comment on above: Performed By: #### 1 023, 7600 #### [facility] [address], [address] [place] [address] Aerospace Manager: Tavon Gonzalez MD Cholesterol in LDL [Mass/Vol] 77 mg/dL Normal [facility] Comment on above: Result Comment: Refe rence range: <100 Desirable range <100 mg/dL for primary prevention; <70 mg/dL for patients with CHD or diabetic patients with > or = 2 CHD risk factors. LDL-C is now calculated using the Alexis-Soraida calculation, which is a validated novel method providing better accuracy than the Friedewald equation in the estimation of LDL-C. Alexis FRANZ et al. DARIN. 2013;310(19): 3331-7032 (http://education.StarCite, Part [employer].CumuLogic/faq/FVS856) Performed By: #### 1 0231, 7600 #### [facility] [address], [address] [place] [address] Aerospace Manager: Tavon Gonzalez MD Cholesterol.total/Choles terol in HDL [Mass ratio] 4.1 {ratio} Normal <5.0 [facility] Comment on above: Performed By: #### 1 0231, 7600 #### [facility] [address], [address] [place] [address] Aerospace Manager: Tavon Gonzalez MD NON HDL CHOLESTEROL 102 mg/dL (calc) Normal <130 [facility] Comment on above: Result Comment: For patients with diabetes plus 1 major ASCVD risk factor, treating to a non-HDL-C goal of <100 mg/dL (LDL-C of <70 mg/dL) is considered a therapeutic option. Performed By: #### 1 0231, 7600 #### [facility] [address], [address] [place] [address] Aerospace Manager: Tavon Gonzalez MD Triglyceride [Mass/Vol] 149 mg/dL Normal <150 [facility] Comment on above: Performed By: #### 1 0231, 4380 #### [facility] [address], [address] [place] [address] Aerospace Manager: Tavon Gonzalez MD Laboratory - Chemistry and C hemistry - challengeon 09-02-2022 Albumin [Mass/Vol] 4.5 g/dL Normal 3.6 - 5.1 g/dL [facility], [facility].; [employer], [facility]. Albumin/Globulin [Mass ratio] 1.7 {ratio} Normal 1.0 - 2.5 [facility], [facility].; [employer] ALP [Catalytic activity/Vol] 42 U/L Normal 36 - 130 U/L [facility], [facility].; [employer] ALT [Catalytic activity/Vol] 43 U/L Normal 9 - 46 U/L [employer] [facility], [facility].; [employer] AST [Catalytic activity/Vol] 16 U/L Normal 10 - 40 U/L [employer], [facility].; [employer] Bilirubin [Mass/Vol] 0.7 mg/dL Normal 0.2 - 1 .2 mg/dL [employer] [facility], [facility].; [employer] Calcium [Mass/Vol] 8.7 mg/dL Normal 8.6 - 10. 3 mg/dL [employer] [facility], [facility].; [employer] Chloride [Moles/Vol] 105 mmol/L Normal 98 - 11 0 mmol/L [facility], [facility].; [facility], [facility]. Cholesterol [Mass/Vol] 135 mg/dL Normal [facility].; [facility], [facility]. Cholesterol in HDL [Mass/Vol] 33 mg/dL Abnormal [facility].; [facility], [facility]. Cholesterol in LDL [Mass/Vol] 77 mg/dL Normal [facility], [facility].; [facility], [facility]. CO2 [Moles/Vol] 26 mmol/L Normal 20 - 32 mmol/L [facility], [facility].; [facility], [facility]. Creatinine [Mass/Vol] 0.95 mg/dL Normal 0.60 - 1.29 mg/dL [facility], [facility].; [facility], [facility]. GFR/1.73 sq M.predicted among non-blacks MDRD (S/P/Bld) [Vol rate/Area] 99 mL/min/{1.73_m2} Normal [facility], [facility].; [facility], [facility]. Glucose [Mass/Vol] 97 mg/dL Normal 65 - 99 mg/dL [facility].; [employer] [facility], [facility]. Potassium [Moles/Vol] 4.4 mmol/L Normal 3.5 - 5.3 mmol/L [place] [facility].; [facility], [facility]. Protein [Mass/Vol] 7.1 g/dL Normal 6.1 - 8.1 g/dL [facility], [facility].; [employer], [facility]. Sodium [Moles/Vol] 139 mmol/L Normal 135 - 146 mmol/L [facility], [facility].; [employer] [facility] Triglyceride [Mass/Vol] 149 mg/dL Normal [facility].; [employer] [facility], [facility]. Urea nitrogen [Mass/Vol] 16 mg/dL Normal 7 - 25 mg/d L [facility].; [employer] [facility], [facility]. No Panel Informationon 09-02 BUN/CREATININE RATIO NOT APPLICABLE Normal 6 - 22 [facility], [facility].; [employer] CHOL/HDLC RATIO 4.1 Normal [facility], [facility].; [facility] GLOBULIN 2.6 Normal 1.9 - 3.7 [facility].; [facility], [facility]. NON HDL CHOLESTEROL 102 Normal [facility], [facility].; [facility], [facility] Laboratory - Chemistry and C hemistry - challengeon 08-13-2021 Albumin [Mass/Vol] 4.8 g/dL Normal 3.6 - 5.1 g/dL [facility], [facility].; [facility], [facility] Albumin/Globulin [Mass ratio] 1.7 {ratio} Normal 1.0 - 2.5 [facility].; [facility], [facility]. ALP [Catalytic activity/Vol] 41 U/L Normal 36 - 130 U/L [facility].; [facility], [facility]. ALT [Catalytic activity/Vol] 31 U/L Normal 9 - 46 U/L [facility].; [facility], [facility]. AST [Catalytic activity/Vol] 27 U/L Normal 10 - 40 U/L [facility], [facility].; [facility], [facility]. Bilirubin [Mass/Vol] 0.5 mg/dL Normal 0.2 - 1 .2 mg/dL [facility].; [facility], [facility]. Calcium [Mass/Vol] 9.3 mg/dL Normal 8.6 - 10. 3 mg/dL [facility], [facility].; [facility], [facility]. Chloride [Moles/Vol] 109 mmol/L Normal 98 - 11 0 mmol/L [facility], [facility].; [facility], [facility]. Cholesterol [Mass/Vol] 161 mg/dL Normal [facility].; [facility], [facility]. Cholesterol in HDL [Mass/Vol] 44 mg/dL Normal [facility], [facility].; [facility], [facility]. Cholesterol in LDL [Mass/Vol] 98 mg/dL Normal [facility], [facility].; [employer] [facility], [facility]. CO2 [Moles/Vol] 19 mmol/L Abnormal 20 - 32 mmol/L [facility], [facility].; [employer] [facility], [facility]. Creatinine [Mass/Vol] 1.05 mg/dL Normal 0.60 - 1.35 mg/dL [facility], [facility].; [facility], [facility]. GFR/1.73 sq M.predicted among blacks MDRD (S/P/Bld) [Vol rate/Area] 97 mL/min/{1.73_m2} Normal [facility]; [facility] Glucose [Mass/Vol] 93 mg/dL Normal 65 - 99 mg/dL [facility]; [facility], [facility] Potassium [Moles/Vol] 5.5 mmol/L Abnormal 3.5 - 5.3 mmol/L [facility]; [facility], [facility] Protein [Mass/Vol] 7.6 g/dL Normal 6.1 - 8.1 g/dL [facility]; [facility], [facility] Sodium [Moles/Vol] 140 mmol/L Normal 135 - 146 mmol/L [facility]; [facility], [facility] Triglyceride [Mass/Vol] 99 mg/dL Normal [facility]; [facility], [facility] Urea nitrogen [Mass/Vol] 18 mg/dL Normal 7 - 25 mg/d L [facility]; [facility] No Panel Informationon 08-13 BUN/CREATININE RATIO NOT APPLICABLE Normal 6 - [facility]; [facility], [facility] CHOL/HDLC RATIO 3.7 Normal [facility]; [facility] eGFR NON-AFR. BENINESE 84 Normal [facility]; [facility] GLOBULIN 2.8 Normal 1.9 - 3.7 [facility]; [facility], [facility] NON HDL CHOLESTEROL 117 Normal [facility]; [employer] [facility], [facility] Laboratory - Chemistry and C hemistry - challengeon 08-14-2020 Cholesterol [Mass/Vol] 128 mg/dL Normal [facility]; [facility] Cholesterol in HDL [Mass/Vol] 33 mg/dL Abnormal [facility]; [facility], [facility]. Cholesterol in LDL [Mass/Vol] 76 mg/dL Normal [facility]; [facility], [facility] Glucose [Mass/Vol] 102 mg/dL Abnormal 65 - 99 mg/dL [facility].; [facility]. Triglyceride [Mass/Vol] 105 mg/dL Normal [facility].; [facility], [facility] No Panel Informationon 08-14 CHOL/HDLC RATIO 3.9 Normal [facility].; [facility], [facility] NON HDL CHOLESTEROL 95 Normal [facility], [facility].; [facility], [facility] Laboratory - Chemistry and C hemistry - challengeon 09-14-2018 Cholesterol [Mass/Vol] 130 mg/dL Normal 0 - 2 00.0 mg/dL [facility].; [facility], [facility]. Cholesterol in HDL [Mass/Vol] 28 mg/dL Abnormal 30.0 - 40.0 mg/dL [facility].; [facility], [facility]. Cholesterol in LDL [Mass/Vol] 84 mg/dL Normal 50.0 - 130.0 mg/dL [facility].; [employer] [facility], [facility]. Cholesterol non HDL [Mass/Vol] 102 mg/dL Normal [facility]; [employer] [facility], [facility]. Cholesterol.total/Choles terol in HDL [Mass ratio] 3 {ratio} Normal 0 - 5.0 [facility].; [employer] [facility]. Glucose Glucometer (BldC) [Moles/Vol] 96 Normal 60 - 120 [facility].; [employer] [facility], [facility]. Triglyceride [Mass/Vol] 92 mg/dL Normal 40 - 150 mg/dL [facility].; [employer] [facility]. Vital Signs Date Time Vital Sign Value Performing Clinician Facility 04-10-2025 14:45-0400 Body height 190.5 cm [facility] Work Phone: [facility]; [employer] [facility] 04-10-2025 14:45-0400 Body mass index (BMI) [Ratio] 36.75 kg/m2 [facility] Work Phone: [facility].; [employer] 04-10-2025 14:45-0400 Body surface area Derived from formula 2.58 m2 Ariela Yohana [employer]IESEL ENGINEER Work Phone: [email or web address].; [employer] [email or web address]. 04-10-2025 14:45-0400 Body weight 133.36 kg Ariela Yohana DIESEL ENGINEER Work Phone: [email or web address].; [employer]. 04-10-2025 14:45-0400 Diastolic blood pressure 84 mm[Hg] Ariela Yohana DIESEL ENGINEER Work Phone: [facility]; [employer]. Comment on above: Patient Position: Sitting; Cuff Location : Left Arm; Cuff Size: Thigh 04-10-2025 14:45-0400 Heart rate 86 /min Ariela Yohana DIESEL ENGINEER Work Phone: [facility]; [employer]. Comment on above: Pattern: Regular 04-10-2025 14:45-0400 Systolic blood pressure 135 mm[Hg] Ariela Yohana DIESEL ENGINEER Work Phone: [email or web address].; [employer]. Comment on above: Patient Position: Sitting; Cuff Location : Left Arm; Cuff Size: Thigh 03-31-2025 15:08-0400 Body mass index (BMI) [Ratio] 38.71 kg/m2 Court Hairston MD, PhD Work Phone: [facility] 03-31-2025 15:08-0400 Body weight 133.[address] Hairston MD, PhD Work Phone: [facility] 03-31-2025 15:08-0400 Diastolic blood pressure 80 mm[Hg] Court Hairston MD, PhD Work Phone: [facility] 03-31-2025 15:08-0400 Heart rate 79 /min Court Hairston MD, PhD Work Phone: [facility] 03-31-2025 15:08-0400 Respiratory rate 16 /min Court Hairston MD, PhD Work Phone: [facility] 03-31-2025 15:08-0400 SaO2% (BldA) [Mass fraction] 96 % Court Hairston MD, PhD Work Phone: [facility] 03-31-2025 15:08-0400 Systolic blood pressure 118 mm[Hg] Court Hairston MD, PhD Work Phone: [facility] 06-12-2024 15:11-0400 Body height 190.5 cm Ariela Yohana DIESEL ENGINEER Work Phone: [employer] 06-12-2024 15:11-0400 Body mass index (BMI) [Ratio] 35.37 kg/m2 Ariela Yohana DIESEL ENGINEER Work Phone: [employer]; [employer]. 06-12-2024 15:11-0400 Body surface area Derived from formula 2.54 m2 Ariela Oyhana DIESEL ENGINEER Work Phone: [employer]; [employer]. 06-12-2024 15:11-0400 Body weight 128.37 kg Ariela Yohana [employer]IESEL ENGINEER Work Phone: [employer]; [employer]. 06-12-2024 15:11-0400 Diastolic blood pressure 81 mm[Hg] Ariela Yohana D[employer]EL ENGINEER Work Phone: [employer]; [employer]. Comment on above: Patient Position: Sitting; Cuff Location : Left Arm; Cuff Size: Large 06-12-2024 15:11-0400 Heart rate 74 /min Ariela Yohana [employer]EL ENGINEER Work Phone: [employer]; [employer]. Comment on above: Pattern: Regular 06-12-2024 15:11-0400 Systolic blood pressure 132 mm[Hg] Ariela Yohana DIESEL ENGINEER Work Phone: [employer]; [employer]. Comment on above: Patient Position: Sitting; Cuff Location : Left Arm; Cuff Size: Large 04-08-2024 15:09-0400 Body height 185.[address] Hairston MD, PhD Work Phone: [facility] 04-08-2024 15:09-0400 Body mass index (BMI) [Ratio] 41.04 kg/m2 Court Hairston MD, PhD Work Phone: [facility] 04-08-2024 15:09-0400 Body weight 141.[address] Hairston MD, PhD Work Phone: [facility] 04-08-2024 15:09-0400 Diastolic blood pressure 94 mm[Hg] Court Hairston MD, PhD Work Phone: [facility] 04-08-2024 15:09-0400 Heart rate 94 /min Court Hairston MD, PhD Work Phone: [facility] 04-08-2024 15:09-0400 SaO2% (BldA) [Mass fraction] 96 % Court Hairston MD, PhD Work Phone: [facility] 04-08-2024 15:09-0400 Systolic blood pressure 157 mm[Hg] Court Hairston MD, PhD Work Phone: [facility] 02-02-2024 15:02-0400 Body height 190.5 cm Ana Snowden LPN [facility], [facility]. 02-02-2024 15:02-0400 Body mass index (BMI) [Ratio] 38.75 kg/m2 Ana Snowden LPN [facility], [facility].; [facility], [facility]. 02-02-2024 15:02-0400 Body surface area Derived from formula 2.64 m2 Ana Snowden LPN [facility], [facility].; [facility], [facility]. 02-02-2024 15:02-0400 Body weight 140.62 kg Ana Snowden LPN [facility], [facility]. 02-02-2024 15:02-0400 Diastolic blood pressure 81 mm[Hg] Ana Snowden LPN [facility], [facility].; [facility], [facility]. Comment on above: Patient Position: Sitting; Cuff Location : Left Arm; Cuff Size: Standard 02-02-2024 15:02-0400 Heart rate 84 /min Ana Snowden LPN [facility], [facility].; [facility], [facility]. Comment on above: Pattern: Regular 02-02-2024 15:02-0400 Systolic blood pressure 130 mm[Hg] Ana Snowden LPN [facility], [facility].; [facility], [facility]. Comment on above: Patient Position: Sitting; Cuff Location : Left Arm; Cuff Size: Standard 08-21-2023 08:54-0500 Body height 185.[address] Hairston MD, PhD Work Phone: [facility] 08-21-2023 08:54-0500 Body weight 140.[address] Hairston MD, PhD Work Phone: [facility] 08-21-2023 08:54-0500 Diastolic blood pressure 85 mm[Hg] Court Hairston MD, PhD Work Phone: [facility] 08-21-2023 08:54-0500 Heart rate 69 /min Court Hairston MD, PhD Work Phone: [facility] 08-21-2023 08:54-0500 SaO2% (BldA) [Mass fraction] 97 % Court Hairston MD, PhD Work Phone: [facility] 08-21-2023 08:54-0500 Systolic blood pressure 134 mm[Hg] Court Hairston MD, PhD Work Phone: [facility] 06-16-2023 08:24-0400 Body weight 140.62 kg Doron Erickson LPN [facility], [facility].; [facility], [facility]. 06-16-2023 08:24-0400 Diastolic blood pressure 70 mm[Hg] Doron Erickson LPN [facility], [facility].; [facility], [facility]. Comment on above: Patient Position: Sitting; Cuff Location : Left Arm; Cuff Size: Standard 06-16-2023 08:24-0400 Heart rate 70 /min Doron Erickson LPN [facility], [facility].; [facility], [facility]. Comment on above: Pattern: Regular 06-16-2023 08:24-0400 Systolic blood pressure 113 mm[Hg] Doron Erickson LPN [facility], [facility]. Comment on above: Patient Position: Sitting; Cuff Location : Left Arm; Cuff Size: Standard 05-15-2023 15:14-0400 Body height 185.[address] Hairston MD, PhD Work Phone: [facility] 05-15-2023 15:14-0400 Body weight [address] Hairston MD, PhD Work Phone: [facility] 05-15-2023 15:14-0400 Diastolic blood pressure 86 mm[Hg] Court Hairston MD, PhD Work Phone: [facility] 05-15-2023 15:14-0400 Heart rate 82 /min Court Hairston MD, PhD Work Phone: [facility] 05-15-2023 15:14-0400 SaO2% (BldA) [Mass fraction] 96 % Court Hairston MD, PhD Work Phone: [facility] 05-15-2023 15:14-0400 Systolic blood pressure 132 mm[Hg] Court Hairston MD, PhD Work Phone: [facility] 01-30-2023 13:16-0400 Body height 185.[address] Hairston MD, PhD Work Phone: [facility] 01-30-2023 13:16-0400 Body weight 134.[address] Hairston MD, PhD Work Phone: [facility] 01-30-2023 13:16-0400 Diastolic blood pressure 87 mm[Hg] Court Hairston MD, PhD Work Phone: [facility] 01-30-2023 13:16-0400 Heart rate 85 /min Court Hairston MD, PhD Work Phone: [facility] 01-30-2023 13:16-0400 SaO2% (BldA) [Mass fraction] 98 % Court Hairston MD, PhD Work Phone: [facility] 01-30-2023 13:16-0400 Systolic blood pressure 123 mm[Hg] Court Hairston MD, PhD Work Phone: [facility] 01-23-2023 13:45-0400 Body height 185.[address] Hairston MD, PhD Work Phone: [facility] 01-23-2023 13:45-0400 Body weight 133.[address] Hairston MD, PhD Work Phone: [facility] 01-23-2023 13:45-0400 Diastolic blood pressure 86 mm[Hg] Court Hairston MD, PhD Work Phone: [facility] 01-23-2023 13:45-0400 Heart rate 100 /min Court Hairston MD, PhD Work Phone: [facility] 01-23-2023 13:45-0400 SaO2% (BldA) [Mass fraction] 97 % Court Hairston MD, PhD Work Phone: [facility] 01-23-2023 13:45-0400 Systolic blood pressure 132 mm[Hg] Court Hairston MD, PhD Work Phone: [facility] 12-26-2022 13:34-0400 Body height 185.[address] 1 [facility] 12-26-2022 13:34-0400 Body temperature 98.2 [degF] Pst 1 [facility] 12-26-2022 13:34-0400 Body weight 138.8 [address] 1 [facility] 12-26-2022 13:34-0400 Diastolic blood pressure 80 mm[Hg] Pst 1 [facility] 12-26-2022 13:34-0400 Heart rate 80 /min Pst 1 [facility] 12-26-2022 13:34-0400 Respiratory rate 18 /[facility] 13:34-0400 SaO2% (BldA) [Mass fraction] 97 % Pst 1 [facility] 12-26-2022 13:34-0400 Systolic blood pressure 128 mm[Hg] Pst 1 [facility] 12-19-2022 09:32-0400 Body height 190.5 cm Ariela Yohana DIESEL ENGINEER Work Phone: [employer] [facility]; [employer] 12-19-2022 09:32-0400 Body mass index (BMI) [Ratio] 36.25 kg/m2 Ariela Yohana DIESEL ENGINEER Work Phone: [employer] [facility]; [employer] 12-19-2022 09:32-0400 Body surface area Derived from formula 2.57 m2 Ariela Yohana DIESEL ENGINEER Work Phone: [employer]; [employer] 12-19-2022 09:32-0400 Body weight 131.54 kg Ariela Yohana DIESEL ENGINEER Work Phone: [employer]; [employer]. 12-19-2022 09:32-0400 Diastolic blood pressure 90 mm[Hg] Ariela Yohana DIESEL ENGINEER Work Phone: [employer]; [employer]. Comment on above: Patient Position: Sitting; Cuff Location : Left Arm; Cuff Size: Large 12-19-2022 09:32-0400 Heart rate 73 /min Ariela Yohana DIESEL ENGINEER Work Phone: [employer]; [employer]. Comment on above: Pattern: Regular 12-19-2022 09:32-0400 Systolic blood pressure 140 mm[Hg] Ariela Yohana DIESEL ENGINEER Work Phone: [employer]; [employer]. Comment on above: Patient Position: Sitting; Cuff Location : Left Arm; Cuff Size: Large 12-02-2022 13:26-0500 Body height 185.[address] Hairston MD, PhD Work Phone: [facility] 12-02-2022 13:26-0500 Body temperature 98.8 [degF] Court Hairston MD, PhD Work Phone: [facility] 12-02-2022 13:26-0500 Body weight 137.[address] Hairston MD, PhD Work Phone: [facility] 12-02-2022 13:26-0500 Diastolic blood pressure 82 mm[Hg] Court Hairston MD, PhD Work Phone: [facility] 12-02-2022 13:26-0500 Heart rate 87 /min Court Hairston MD, PhD Work Phone: [facility] 12-02-2022 13:26-0500 Respiratory rate 18 /min Court Hairston MD, PhD Work Phone: [facility] 12-02-2022 13:26-0500 SaO2% (BldA) [Mass fraction] 98 % Court Hairston MD, PhD Work Phone: [facility] 12-02-2022 13:26-0500 Systolic blood pressure 149 mm[Hg] Court Hairston MD, PhD Work Phone: [facility] 10-21-2022 08:14-0500 Body temperature 98.2 [degF] Court Hairston MD, PhD Work Phone: [facility] 10-21-2022 08:14-0500 Diastolic blood pressure 76 mm[Hg] Court Hairston MD, PhD Work Phone: [facility] 10-21-2022 08:14-0500 Heart rate 67 /min Court Hairston MD, PhD Work Phone: [facility] 10-21-2022 08:14-0500 Respiratory rate 18 /min Court Hairston MD, PhD Work Phone: [facility] 10-21-2022 08:14-0500 SaO2% (BldA) [Mass fraction] 97 % Court Hairston MD, PhD Work Phone: [facility] 10-21-2022 08:14-0500 Systolic blood pressure 127 mm[Hg] Court Hairston MD, PhD Work Phone: [facility] 09-02-2022 08:28-0500 Body height 190.5 cm Ana Lozoya MA [facility], [facility].; [facility], [facility]. 09-02-2022 08:28-0500 Body mass index (BMI) [Ratio] 37.62 kg/m2 Ana Lozoya MA [facility], [facility].; [facility], [facility]. 09-02-2022 08:28-0500 Body surface area Derived from formula 2.61 m2 Ana Lozoya MA [facility], [facility].; [facility], [facility]. 09-02-2022 08:28-0500 Body weight 136.53 kg Ana Lozoya MA [facility], [facility].; [employer] [facility], [facility]. 09-02-2022 08:28-0500 Diastolic blood pressure 81 mm[Hg] Ana Lozoya MA [facility].; [employer]. Comment on above: Patient Position: Sitting; Cuff Location : Left Arm; Cuff Size: Standard 09-02-2022 08:28-0500 Heart rate 64 /min Ana Lozoya MA [facility].; [employer]. Comment on above: Pattern: Regular 09-02-2022 08:28-0500 Systolic blood pressure 122 mm[Hg] Ana Lozoya MA [facility].; [employer]. Comment on above: Patient Position: Sitting; Cuff Location : Left Arm; Cuff Size: Standard 05-12-2022 15:52-0400 Diastolic blood pressure 78 mm[Hg] Ariela Muller LPN Work Phone: [facility].; [employer]. Comment on above: Patient Position: Sitting; Cuff Location : Right Arm; Cuff Size: Thigh 05-12-2022 15:52-0400 Systolic blood pressure 133 mm[Hg] Ariela Yohana DIESEL ENGINEER Work Phone: [employer] [facility]; [employer]. Comment on above: Patient Position: Sitting; Cuff Location : Right Arm; Cuff Size: Thigh 05-12-2022 15:52-0400 Body height 182.88 cm Ariela Yohana DIESEL ENGINEER Work Phone: [employer]; [employer] 05-12-2022 15:52-0400 Body mass index (BMI) [Ratio] 38.52 kg/m2 Ariela Yohana DIESEL ENGINEER Work Phone: [employer]; [employer]. 05-12-2022 15:52-0400 Body surface area Derived from formula 2.47 m2 Ariela Yohana DIESEL ENGINEER Work Phone: [employer]; [employer]. 05-12-2022 15:52-0400 Body weight 128.82 kg Ariela Yohana DIESEL ENGINEER Work Phone: [employer]; [employer]. 05-12-2022 15:52-0400 Diastolic blood pressure 77 mm[Hg] Ariela Yohana DIESEL ENGINEER Work Phone: [employer]; [employer]. Comment on above: Patient Position: Sitting; Cuff Location : Left Arm; Cuff Size: Thigh 05-12-2022 15:52-0400 Heart rate 80 /min Ariela Yohana DIESEL ENGINEER Work Phone: [employer]; [employer]. Comment on above: Pattern: Regular 05-12-2022 15:52-0400 Systolic blood pressure 131 mm[Hg] Ariela Yohana DIESEL ENGINEER Work Phone: [employer]; [employer] Comment on above: Patient Position: Sitting; Cuff Location : Left Arm; Cuff Size: Thigh 04-25-2022 16:04-0400 Body height 182.88 cm Ariela Muller LPN Work Phone: [employer]. 04-25-2022 16:04-0400 Body mass index (BMI) [Ratio] 38.11 kg/m2 Ariela Muller LPN Work Phone: [employer] 04-25-2022 16:04-0400 Body surface area Derived from formula 2.46 m2 Ariela Muller LPN Work Phone: [employer].; [employer]. 04-25-2022 16:04-0400 Body weight 127.46 kg Ariela Muller LPN Work Phone: [employer]. 04-25-2022 16:04-0400 Diastolic blood pressure 77 mm[Hg] Ariela Muller LPN Work Phone: [employer]; [employer]. Comment on above: Patient Position: Sitting; Cuff Location : Left Arm; Cuff Size: Thigh 04-25-2022 16:04-0400 Heart rate 82 /min Ariela Muller LPN Work Phone: [employer]; [employer]. Comment on above: Pattern: Regular 04-25-2022 16:04-0400 Systolic blood pressure 119 mm[Hg] Ariela Muller LPN Work Phone: [employer]; [employer]. Comment on above: Patient Position: Sitting; Cuff Location : Left Arm; Cuff Size: Thigh 08-13-2021 08:10-0500 Body height 182.88 cm Ana Snowden LPN [employer]. 08-13-2021 08:10-0500 Body mass index (BMI) [Ratio] 38.92 kg/m2 Ana Snowden LPN [employer] 08-13-2021 08:10-0500 Body surface area Derived from formula 2.48 m2 Ana Snowden LPN [facility], [facility].; [facility] 08-13-2021 08:10-0500 Body weight 130.18 kg Ana Snowden LPN [facility], [facility].; [employer] [facility] 08-13-2021 08:10-0500 Diastolic blood pressure 71 mm[Hg] Ana Snowden LPN [facility].; [employer] [facility] Comment on above: Patient Position: Sitting; Cuff Location : Left Arm; Cuff Size: Standard 08-13-2021 08:10-0500 Heart rate 67 /min Ana Snowden LPN [facility], [facility].; [employer] [facility] Comment on above: Pattern: Regular 08-13-2021 08:10-0500 Systolic blood pressure 111 mm[Hg] Ana Snowden LPN [facility] [employer] Comment on above: Patient Position: Sitting; Cuff Location : Left Arm; Cuff Size: Standard 12-09-2020 09:55-0400 Body height 182.88 cm Ariela Yohana DIESEL ENGINEER Work Phone: [employer] 12-09-2020 09:55-0400 Body mass index (BMI) [Ratio] 36.89 kg/m2 Ariela Yohana DIESEL ENGINEER Work Phone: [employer] [email or web address].; [employer] 12-09-2020 09:55-0400 Body surface area Derived from formula 2.43 m2 Ariela Yohana DIESEL ENGINEER Work Phone: [employer]. 12-09-2020 09:55-0400 Body weight 123.38 kg Ariela Yohana DIESEL ENGINEER Work Phone: [employer].; [employer] 12-09-2020 09:55-0400 Diastolic blood pressure 80 mm[Hg] Ariela Yohana DIESEL ENGINEER Work Phone: [employer].; [employer]. Comment on above: Patient Position: Sitting; Cuff Location : Left Arm; Cuff Size: Large 12-09-2020 09:55-0400 Heart rate 67 /min Ariela Yohana DIESEL ENGINEER Work Phone: [facility] [employer]. Comment on above: Pattern: Regular 12-09-2020 09:55-0400 Systolic blood pressure 117 mm[Hg] Ariela Yohana DIESEL ENGINEER Work Phone: [employer]. Comment on above: Patient Position: Sitting; Cuff Location : Left Arm; Cuff Size: Large 09-04-2020 14:21-0500 Body height 182.88 cm Ariela Yohana DIESEL ENGINEER Work Phone: [employer].; [employer]. 09-04-2020 14:21-0500 Body mass index (BMI) [Ratio] 40.69 kg/m2 Ariela Yohana DIESEL ENGINEER Work Phone: [employer].; [employer]. 09-04-2020 14:21-0500 Body surface area Derived from formula 2.53 m2 Ariela Yohana DIESEL ENGINEER Work Phone: [employer].; [employer]. 09-04-2020 14:21-0500 Body weight 136.08 kg Ariela Yohana DIESEL ENGINEER Work Phone: [employer].; [employer]. 09-04-2020 14:21-0500 Diastolic blood pressure 79 mm[Hg] Ariela Yohana DIESEL ENGINEER Work Phone: [employer].; [employer]. Comment on above: Patient Position: Sitting; Cuff Location : Left Arm; Cuff Size: Large 09-04-2020 14:21-0500 Heart rate 80 /min Ariela Yohana DIESEL ENGINEER Work Phone: [employer].; [employer]. Comment on above: Pattern: Regular 09-04-2020 14:21-0500 Systolic blood pressure 146 mm[Hg] Ariela Yohana DIESEL ENGINEER Work Phone: [employer].; [employer]. Comment on above: Patient Position: Sitting; Cuff Location : Left Arm; Cuff Size: Large 04-10-2020 15:55-0400 Body height 182.88 cm Ariela Yohana DIESEL ENGINEER Work Phone: [employer].; [employer]. 04-10-2020 15:55-0400 Body mass index (BMI) [Ratio] 38.52 kg/m2 Ariela Yohana DIESEL ENGINEER Work Phone: [employer].; [employer] 04-10-2020 15:55-0400 Body surface area Derived from formula 2.47 m2 Ariela Yohana DIESEL ENGINEER Work Phone: [employer].; [employer]. 04-10-2020 15:55-0400 Body weight 128.82 kg Ariela Yohana DIESEL ENGINEER Work Phone: [employer]. 04-10-2020 15:55-0400 Diastolic blood pressure 84 mm[Hg] Ariela Yohana DIESEL ENGINEER Work Phone: [employer]. Comment on above: Patient Position: Sitting; Cuff Location : Left Arm; Cuff Size: Standard 04-10-2020 15:55-0400 Heart rate 76 /min Ariela Yohana DIESEL ENGINEER Work Phone: [employer]. Comment on above: Pattern: Regular 04-10-2020 15:55-0400 Systolic blood pressure 135 mm[Hg] Ariela Yohana DIESEL ENGINEER Work Phone: [employer]. Comment on above: Patient Position: Sitting; Cuff Location : Left Arm; Cuff Size: Standard 02-13-2020 13:52-0400 Body height 182.88 cm Ariela Yohana DIESEL ENGINEER Work Phone: [employer].; [employer]. 02-13-2020 13:52-0400 Body mass index (BMI) [Ratio] 38.92 kg/m2 Arielarosalba Daileyy DIESEL ENGINEER Work Phone: [employer].; [employer] 02-13-2020 13:52-0400 Body surface area Derived from formula 2.48 m2 Arielarosalba Daileyy DIESEL ENGINEER Work Phone: [employer].; [employer] 02-13-2020 13:52-0400 Body weight 130.18 kg Ariela Daileyy DIESEL ENGINEER Work Phone: [employer].; [employer]. 02-13-2020 13:52-0400 Diastolic blood pressure 77 mm[Hg] Ariela Daileyy DIESEL ENGINEER Work Phone: [employer].; [employer]. Comment on above: Patient Position: Sitting; Cuff Location : Left Arm; Cuff Size: Standard 02-13-2020 13:52-0400 Heart rate 76 /min Ariela Daileyy DIESEL ENGINEER Work Phone: [employer]; [employer]. Comment on above: Pattern: Regular 02-13-2020 13:52-0400 Systolic blood pressure 130 mm[Hg] Ariela Daileyy DIESEL ENGINEER Work Phone: [employer].; [employer]. Comment on above: Patient Position: Sitting; Cuff Location : Left Arm; Cuff Size: Standard 09-14-2018 09:53-0500 Body height 182.88 cm Ariela Daileyy DIESEL ENGINEER Work Phone: [employer].; [employer]. 09-14-2018 09:53-0500 Body mass index (BMI) [Ratio] 40.01 kg/m2 Ariela Yohana DIESEL ENGINEER Work Phone: [employer].; [employer]. 09-14-2018 09:53-0500 Body surface area Derived from formula 2.51 m2 Ariela Yohana DIESEL ENGINEER Work Phone: [employer].; [employer]. 09-14-2018 09:53-0500 Body weight 133.81 kg Ariela Muller LPN Work Phone: [employer].; [employer]. 09-14-2018 09:53-0500 Diastolic blood pressure 72 mm[Hg] Ariela Muller LPN Work Phone: [employer]. Comment on above: Patient Position: Sitting; Cuff Location : Left Arm; Cuff Size: Large 09-14-2018 09:53-0500 Heart rate 68 /min Ariela Muller LPN Work Phone: [employer].; [employer]. Comment on above: Pattern: Regular 09-14-2018 09:53-0500 Systolic blood pressure 110 mm[Hg] Ariela Muller LPN Work Phone: [employer].; [employer]. Comment on above: Patient Position: Sitting; Cuff Location : Left Arm; Cuff Size: Large 04-26-2018 14:04-0400 Body height 182.88 cm Dali Min MD Work Phone: [employer].; [employer]. 04-26-2018 14:04-0400 Body mass index (BMI) [Ratio] 40.69 kg/m2 Dali Min MD Work Phone: [employer].; [employer]. 04-26-2018 14:04-0400 Body surface area Derived from formula 2.53 m2 Dali Min MD Work Phone: [employer].; [employer]. 04-26-2018 14:04-0400 Body weight 136.08 kg Dali Min MD Work Phone: [employer]. 04-26-2018 14:04-0400 Diastolic blood pressure 79 mm[Hg] Dali Min MD Work Phone: [employer]; [employer]. Comment on above: Patient Position: Sitting; Cuff Location : Right Arm; Cuff Size: Standard 04-26-2018 14:04-0400 Heart rate 82 /min Dali Min MD Work Phone: [employer]. Comment on above: Pattern: Regular 04-26-2018 14:04-0400 Systolic blood pressure 119 mm[Hg] Dali Min MD Work Phone: [employer].; [employer]. Comment on above: Patient Position: Sitting; Cuff Location : Right Arm; Cuff Size: Standard 06-15-2017 14:27-0400 Body temperature 98.5 [degF] Dali Min MD Work Phone: [employer]; [employer]. Comment on above: Method: Tympanic 06-15-2017 14:27-0400 Body weight 136.99 kg Dali Min MD Work Phone: [employer]; [employer]. 06-15-2017 14:27-0400 Diastolic blood pressure 89 mm[Hg] Dali Min MD Work Phone: [employer]. Comment on above: Patient Position: Sitting; Cuff Location : Left Arm; Cuff Size: Standard 06-15-2017 14:27-0400 Heart rate 73 /min Dlai Min MD Work Phone: [employer]; [employer]. Comment on above: Pattern: Regular 06-15-2017 14:27-0400 Inhaled oxygen concentration 20 % Dali Min MD Work Phone: [employer]; [employer]. Comment on above: Room air 06-15-2017 14:27-0400 Inhaled oxygen concentration 21 % Dali Min MD Work Phone: [employer]; [employer]. Comment on above: Room air 06-15-2017 14:270400 SaO2% (BldA) [Mass fraction] 98 % Dali Min MD Work Phone: [employer]; [employer] 06-15-2017 14: Systolic blood pressure 153 mm[Hg] Dali Min MD Work Phone: [employer]; [employer]. Comment on above: Patient Position: Sitting; Cuff Location : Left Arm; Cuff Size: Standard Encounters Encounter Date Encounter Type Care Provider Facility Start: 04-10-2025 End: 04-10-2025 Office outpatient visit 15 minutes Dali Min MD Work Phone: [employer] Start: 04-10-2025 Review Dali gordillo MD Work Phone: [employer] Start: 03-31-2025 End: 03-31-[address] Hairston MD, PhD Work Phone: [facility] Comment on above: S/P cervical spinal fusion (Primary Dx) Start: 03-31-2025 End: 03-31-[address] [place]ON Facility:[facility] Start: 01-31-2025 End: 01-31-[address] Hairston MD, PhD Work Phone: [facility] Start: 08-07-2024 End: 08-07-2024 Orders Dali Min MD Work Phone: [employer] Start: 07-17-2024 Review Dali gordillo MD Work Phone: [employer] Start: 07-11-2024 End: 07-11-2024 Orders Dali Min MD Work Phone: [employer] Start: 07-11-2024 End: 07-11-2024 ambulatory Dali Min Facility:[facility] Start: 07-09-2024 End: 07-09-2024 ambulatory Dali Min Facility:[facility] Start: 06-28-2024 ambulatory DALI MIN [facility] Start: 06-12-2024 End: 06-12-2024 Office outpatient visit 25 minutes Dali Min MD Work Phone: [employer] Start: 04-08-2024 End: 04-08-[address] Hairston MD, PhD Work Phone: [facility] Comment on above: S/P cervical spinal fusion (Primary Dx) Start: 04-08-2024 End: 04-08-[address] [place] Facility:[facility] Start: 04-08-2024 End: 04-08-2024 ambulatory Dali Micdavon Facility:[facility] Start: 02-02-2024 End: 02-02-2024 Office outpatient visit 25 minutes Dali Min MD Work Phone: [employer] Start: 08-30-[address] malloy MD, PhD Work Phone: [facility] Comment on above: [employer] [facility] Start: 08-21-2023 End: 08-21-[address] Hairston MD, PhD Work Phone: [facility] Comment on above: S/P cervical spinal fusion (Primary Dx) Start: 06-16-2023 End: 06-16-2023 Periodic preventive med est patient 40-64yrs Dali Min MD Work Phone: [employer] Start: 06-16-2023 End: 06-16-2023 Physical examination Dali Min MD Work Phone: [employer]; [employer] Start: 06-07-2023 End: 06-07-2023 Phone Encounter Dali Min MD Work Phone: [employer] Start: 05-31-2023 End: 05-31-2023 Orders Dali Min MD Work Phone: [facility]. Start: 05-15-2023 End: 05-15-[address] Hairston MD, PhD Work Phone: [facility] Comment on above: S/P cervical spinal fusion (Primary Dx) Start: 01-30-2023 End: 01-30-[address] Hairston MD, PhD Work Phone: [facility] Comment on above: S/P cervical spinal fusion (Primary Dx) Start: 01-23-2023 End: 01-23-[address] Hairston MD, PhD Work Phone: [facility] Comment on above: S/P cervical spinal fusion (Primary Dx) Start: 01-18-2023 Telephone encounter Dali Min Work Phone: [facility] Comment on above: Follow Up Phone Call (All clear) Start: 12-27-[address] pleitez MD, PhD Work Phone: [facility] Comment on above: Staph aureus infecti on (Primary Dx) Start: 12-26-2022 End: 12-26-2022 Subsequent hospital visit by physician [facility] Comment on above: Presurgical Testing Start: 12-26-2022 End: 12-26-2022 Admission to [facility] [address] Start: 12-26-2022 End: 12-26-2022 ambulatory Pst 1 Pre Surgical Testing Comment on above: Preop testing (Prima ry Dx); Class 3 severe obesity without serious comorbidity with body mass index (BMI) of 40.0 to 44.9 in adult, unspecified obesity type (HCC); Cervical myelopathy (HCC) [G95.9 (ICD-10-CM)] Start: 12-26-2022 End: 12-26-2022 Patient encounter status Pst 1 Pre Surgical Te sting Start: 12-19-2022 End: 12-19-2022 Patient encounter procedure Dali Min MD Work Phone: [employer] [email or web address] Start: 12-19-2022 End: 12-19-2022 Preprocedural examination done Dali Min MD Work Phone: [employer] [facility]; [employer] [email or web address] Start: 12-09-[address] pleitez MD, PhD Work Phone: [facility] Comment on above: Cervical myelopathy (HCC) (Primary Dx) Start: 12-02-2022 End: 12-02-[address] Hairston MD, PhD Work Phone: [facility] Comment on above: Cervical myelopathy (HCC) (Primary Dx) Start: 11-01-2022 End: 11-01-[address] [place] Facility:[facility] Start: 11-01-2022 End: 11-01-2022 Subsequent hospital visit by physician Xr [facility] Work Phone: Radiology Comment on above: Cervical myelopathy (HCC) [G95.9] Start: 10-21-2022 End: 10-21-[address] Hairston MD, PhD Work Phone: [facility] Comment on above: Cervical myelopathy (HCC) (Primary Dx) Start: 10-04-2022 Patient encounter procedure [facility]/Neurology Start: 09-28-2022 End: 09-28-2022 ambulatory [facility] Work Phone: Start: 09-28-2022 End: 09-28-2022 Patient encounter procedure [facility]-MRI - [facility] Start: 09-27-2022 End: 09-27-2022 Medication Dali Min MD Work Phone: [employer] Start: 09-02-2022 End: 09-02-2022 Periodic preventive med est patient 40-64yrs Dali Min MD Work Phone: [employer] Start: 09-02-2022 End: 09-02-2022 Physical examination Dali Min MD Work Phone: [employer]; [employer] Start: 08-24-2022 End: 08-24-2022 Orders Dali Min MD Work Phone: [employer] Start: 08-01-2022 End: 08-01-2022 Orders Dali Min MD Work Phone: [employer] Start: 05-12-2022 End: 05-12-2022 Patient encounter procedure Dali Min MD Work Phone: [employer] Start: 04-25-2022 End: 04-25-2022 Patient encounter procedure Dali Min MD Work Phone: [employer] Start: 08-13-2021 End: 08-13-2021 Patient encounter status Dali Min MD Work Phone: [employer]; [employer] Start: 08-13-2021 End: 08-13-2021 Periodic preventive med est patient 40-64yrs Dali Min MD Work Phone: [employer] Start: 05-14-2021 End: 05-14-2021 Orders Dali Min MD Work Phone: [employer] Start: 02-17-2021 End: 02-17-2021 Orders Dali Min MD Work Phone: [employer] Start: 12-09-2020 End: 12-09-2020 Patient encounter procedure Dali Min MD Work Phone: [employer] Start: 09-04-2020 End: 09-04-2020 Patient encounter procedure Dali Min MD Work Phone: [employer] Start: 09-04-2020 End: 09-04-2020 Patient encounter status Dali Min MD Work Phone: [employer]; [employer] Start: 08-14-2020 End: 08-14-2020 Orders Dali Min MD Work Phone: [employer] Start: 04-20-2020 End: 04-20-2020 Medication Dali Min MD Work Phone: [employer] Start: 04-14-2020 End: 2020 Medication Dali Min MD Work Phone: [employer] Start: 04-10-2020 End: 04-10-2020 Office outpatient new 30 minutes Dali Min MD Work Phone: [employer] Start: 04-08-2020 End: 04-08-2020 Orders Dali Min MD Work Phone: [employer] Start: 02-13-2020 End: 02-13-2020 Procedure Dali Min MD Work Phone: [employer] Start: 01-26-2019 End: 01-26-2019 Orders Dali Min MD Work Phone: [employer] Start: 09-14-2018 End: 09-14-2018 Patient encounter procedure Dali Mni MD Work Phone: [employer] Start: 09-14-2018 End: 09-14-2018 Patient encounter status Dali Min MD Work Phone: [employer]; [employer]. Start: 04-26-2018 End: 04-26-2018 Patient encounter procedure Dali Min MD Work Phone: [employer] Start: 06-15-2017 End: 06-15-2017 Office outpatient new 20 minutes Dali Min MD Work Phone: [employer] Physical examination Dante duran PA-C Work Phone: [facility].; [facility] Preprocedural examination done Doron Erickson LPN [facility].; [facility] Preprocedural examination done Ana Snowden LPN [facility].; [facility] Procedures Date Procedure Procedure Detail Performing Clinician Start: 06-12-2024 End: 06-12-2024 Triamcinolone acet inj NOS Dali georges MD Work Phone: Start: 06-12-2024 End: 07-10-2024 Radiologic exam knee complete 4/more views Dali Min MD Work Phone: Start: 02-02-2024 End: 02-02-2024 Pt-focused hlth risk assmt score doc stnd instrm Dali Min MD Work Phone: Comment on above: score is 5 Start: 06-16-2023 End: 06-16-2023 Depression screening Mercedezke Collene KelleySandra PA-C Work Phone: Start: 06-16-2023 End: 06-28-2023 Oncology colorectal screening de 10 dna markrs Luke E Sandra PA-C Work Phone: Start: 06-16-2023 End: 06-16-2023 Scr dep neg, no plan reqd Mercedezke Colleen Lazaroe tler PA-C Work Phone: Start: 06-07-2023 End: 06-07-2023 Lab findings surveillance Doron Milian PN Comment on above: CMP 93 Start: 06-07-2023 End: 06-07-2023 Lipid panel Doron Erickson LPN Comment on above: tc 175 hdl 44 ldl 10 0 trig 185 Start: 11-01-2022 Radex spine cervical [address] Hairston MD, PhD Work Phone: Start: 09-28-2022 MRI of cervical spine Start: 09-02-2022 End: 09-02-2022 Depression screening Luke Colleen KelleySandra PA-C Work Phone: Start: 09-02-2022 End: 09-02-2022 Scr dep neg, no plan reqd Luke E Hochste tler PA-C Work Phone: Start: 08-01-2022 End: 08-24-2022 Ndl emg 1 xtr w/wo related paraspinal areas Dali Min MD Work Phone: Start: 04-25-2022 End: 04-25-2022 Destruction benign lesions up to 14 Dali Min MD Work Phone: Start: 08-13-2021 End: 08-13-2021 Depression screening Dante Flores PA-C Work Phone: Start: 08-13-2021 End: 08-13-2021 Scr dep neg, no plan reqd Luke E Hochste tler PA-C Work Phone: Start: 12-09-2020 End: 12-09-2020 Body mass index documented Dali georges MD Work Phone: Start: 09-04-2020 End: 09-04-2020 Destruction benign lesions up to 14 Dali Min MD Work Phone: Start: 09-04-2020 End: 09-04-2020 Body mass index documented Dali georges MD Work Phone: Start: 04-10-2020 End: 04-10-2020 Triamcinolone acet inj NOS Dali georges MD Work Phone: Start: 02-13-2020 End: 02-13-2020 Avulsion nail plate partial/complete simple 1 Dali Min MD Work Phone: Start: 09-14-2018 End: 09-14-2018 Body mass index documented Dali georges MD Work Phone: Start: 09-14-2018 End: 09-14-2018 BP scrn perf rec interval Dali maguire MD Work Phone: Start: 09-14-2018 End: 09-14-2018 Current tobacco non-user cad cap copd pv dm Dali Min MD Work Phone: Start: 09-14-2018 End: 09-14-2018 Docrev cur meds by sid Min MD Work Phone: Start: 09-14-2018 End: 09-14-2018 Flu immunize order/admin Dali valentine MD Work Phone: Start: 09-14-2018 End: 09-14-2018 Most recent diastolic blood pressure < 80 mm hg Dali Min MD Work Phone: Start: 09-14-2018 End: 09-14-2018 Most recent systolic blood pressure <130 mm hg Dali Min MD Work Phone: Start: 09-14-2018 End: 09-14-2018 No Known Health Maintenance History Doron Longon [employer] Start: 09-14-2018 End: 09-14-2018 Pt scrnd tobacco use rcvd tobacco cessation talk Dali Min MD Work Phone: Start: 04-26-2018 End: 04-26-2018 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 upw/15 Dali Min MD Work Phone: Start: 06-15-2017 End: 06-15-2017 Triamcinolone acet inj NOS Tracy J Pal sudhir PA-C Work Phone: ankle surgery x 3 Doron Mas on [employer] left knee surgery Doron Mas on [employer] Plan of Treatment Date Care Activity Detail Author Start: 06-21-2026 Screening for malign ant neoplasm of colon [facility] Start: 04-06-2026 End: 04-06-2026 Patient encounter procedure 04/06/2026 3:30 PM EDT Office Visit [facility] [address] [place] [id number] Court Hairston MD, PhD [address] [facility] [place] [address] 1 yr fu [facility] Comment on above: 1 yr fu Start: 12-26-2025 [facility]ABET[facility] Start: 12-26-2025 Diabetes Screening Diabetes Screenin g [facility] Start: 05-26-2025 Influenza vaccination C [facility] Start: 04-10-2025 Patient encounter procedure Medical; ACUTE VISIT - infected toenail or fungus[facility] Start: 10-Apr-2025 14:40-04:00 ROSS Suarez [facility]ment [facility] Start: 06-12-2024 Radiologic exam knee complete 4/more views Knee x-ray, Left Complete ([id number]) Start: 12-Jun-2024 [facility]; [facility] Start: 05-26-2024 Covid-19 Vaccine () Covid-19 Vaccine () [facility] Start: 05-26-2024 Influenza vaccination Influenza Vacc ine (#1) [facility] Start: 2024 Pneumococcal Vaccine : 50+ (1 of 1 - PCV) Pneumococcal Vaccine: 50+ (1 of 1 - PCV) [facility] Start: 2024 Shingrix Vaccine (1 of 2) Shingrix Vaccine (1 of 2) [facility] Start: 02-02-2024 Patient encounter procedure Medical; EXTENDED RTN - discuss weight, patches for cruise [facility] Start: 02-Feb-2024 14:50-04:00 MD Dali Min Appointment Request [facility] Start: 02-02-2024 End: 02-05-2024 Polysom 6/>yrs sleep 4/> addl amna attnd [email or web address] Start: 09-25-2023 Behavioral Health Screening Behavioral Health Screening [facility] Start: 05-26-2023 Covid-19 Vaccine () Covid-19 Vaccine () [facility] Start: 05-26-2023 Influenza vaccination C [facility] Start: 01-01-2023 DEPRESSION ASSESSMENT DEPRESSION ASS ESSMENT [facility] Start: 05-26-2022 Influenza vaccination INFLUENZA (#1) [facility] Start: 11-16-2021 COVID-19 VACCINE (4 - Booster for Moderna series) COVID-19 VACCINE (4 - Booster for Moderna series) [facility] Start: 11-16-2021 COVID-19 VACCINE (4 - Moderna series) COVID-19 VACCINE (4 - Moderna series) [facility] Start: 2019 COLOGUARD (FIT-DNA) COLOGUARD (FIT-D NA) [facility] Start: 2019 Colonoscopy COLONOSCOPY [facility] Start: 2019 COLORECTAL CANCER SCREENING COLORECTAL CANCER SCREENING [facility] Start: [address] COLONOGRAPHY [facility] Start: 2019 DIABETES SCREEN DIABETES SCREEN [facility] Start: 2019 FECAL OCCULT BLOOD FECAL OCCULT BLOO D [facility] Start: 2019 Screening for malign ant neoplasm of colon [facility] Start: 2019 SIGMOIDOSCOPY SIGMOIDOSCOPY [facility] Start: 09-26-2014 Urine microalbumin profile DTaP,Tdap,Td Vaccine (1 - Tdap) [facility] Start: 2009 Lipid 1996 panel - Serum or Plasma Lipid Screening [facility] Start: 2009 Lipid panel Lipid Screening [facility] Start: 2009 LIPID SCREEN LIPID SCREEN [facility] Start: 1993 Hepatitis B Vaccine (1 of 3 - 19+ 3-dose series) Hepatitis B Vaccine (1 of 3 - 19+ 3-dose series) [facility] Start: 1993 Urine microalbumin profile DTAP,TDAP,TD (1 - Tdap) [facility] Start: 1992 Anxiety Screening Anxiety Screening [facility] Start: 1992 Depression Screening Depression Scre ening [facility] Start: 1992 HEPATITIS C SCREENING HEPATITIS C SC REENING [facility] Start: 1992 HIV SCREENING HIV SCREENING [facility] Start: 1974 HEPATITIS B (1 of 3 - 3-dose series) HEPATITIS B (1 of 3 - 3-dose series) [facility] Start: 1974 Hepatitis B Vaccine (1 of 3 - 3-dose series) Hepatitis B Vaccine (1 of 3 - 3-dose series) [facility] End: 02-09-2024 Radex spine cervical 2 or 3 views XR CERV GENERAL 2V AP/LAT Radiology Routine S/P cervical spinal fusion 1 Occurrences starting 01/12/2023 until 02/09/2024 [facility] Work Phone: Comment on above: 1 Occurrences starti ng 01/12/2023 until 02/09/2024 Radex spine cervical 2 or 3 views XR CERV GENERAL 2V AP/LAT Radiology Routine S/P cervical spinal fusion 01/23/2023 1:42 PM EDT [facility] Work Phone: End: 09-14-2024 Radex spine cervical 2 or 3 views XR CERV GENERAL 2V AP/LAT Radiology Routine S/P cervical spinal fusion 1 Occurrences starting 08/16/2023 until 09/14/2024 [facility] Work Phone: Comment on above: 1 Occurrences starti ng 08/16/2023 until 09/14/2024 Radex spine cervical 2 or 3 views XR CERV GENERAL 2V AP/LAT Radiology Routine S/P cervical spinal fusion 08/21/2023 8:33 AM EST [facility] Work Phone: End: 11-20-2023 Radex spine cervical 4 or 5 views XR CERV OTHER 4V AP/LAT/FLX/EXT Radiology Routine Cervical myelopathy (HCC) 1 Occurrences starting 10/21/2022 until 11/20/2023 [facility] Work Phone: Comment on above: 1 Occurrences starti ng 10/21/2022 until 11/20/2023 End: 12-26-2022 Radiologic exam chest 2 views [facility] Work Phone: Comment on above: 1 Occurrences starti ng 12/26/2022 until 12/26/2022 [facility] dexAMETHasone so d phos (bulk) 100 % powder Ordered: 15-Jun-2017 [email or web address] [employer] Work Phone: dexAMETHasone so d phos (bulk) 100 % powder Ordered: 12-Jun-[address] [email or web address] [employer] Immunizations Immunization Date Immunization Notes Care Provider [facility] 08-08-2023 influenza virus vaccine, unspecified formulation Court Hairston MD, PhD Work Phone: [facility] 07-04-2021 influenza, injectabl e, quadrivalent, contains preservative Dali Min MD Work Phone: [facility] [employer] 01-28-2021 COVID-Moderna (100 MCG/0.5 ML) Dali Min MD Work Phone: [employer]. 12-31-2020 COVID-Moderna (100 MCG/0.5 ML) Dali Min MD Work Phone: [facility] [employer]; [employer] 06-25-2020 influenza virus vaccine, unspecified formulation Dali Min MD Work Phone: [email or web address] [employer]. Comment on above: at work 06-25-2018 influenza, injectabl e, quadrivalent, contains preservative Dali Min MD Work Phone: [facility] [employer]; [employer]. Comment on above: at work 09-25-2014 TD(adult) unspecifie d formulation Dali Min MD Work Phone: [employer]; [employer] Comment on above: at an er, date appro ximate Payers Date Payer Category Payer Self-pay [id number] 2023 Unknown [id number] 2022 Private Health Insurance [id number] 2012 Private Health Insurance [id number] Unknown [facility] PACKAGE PLAN [id number] Unknown Unknown [id number] Unknown [id number] Unknown [id number] Social History Date Type Detail Facility Start: 05-10-2022 Tobacco smoking stat us ALIS Unknown if ever smoked [facility] Start: 1975 Sex Assigned At Male W [facility] Start: 10-21-2022 End: 12-23-2022 Tobacco smoking status ALIS Never smoked tobacco [facility] Start: 10-21-2022 End: 03-31-2025 Alcohol intake Current drinker of alcohol (finding) [facility] Start: 10-21-2022 Alcohol Comment [facility] Start: 1975 Sex Assigned At Not on file C [facility] Start: 12-23-2022 Tobacco use and exposure Smokeless tobacco non-user [facility] Start: 01-10-2023 History SDOH Financial 5 [facility] Start: 01-10-2023 History SDOH Food Worry 1 [facility] Start: 01-10-2023 History SDOH Transpo rt Med 2 [facility] Start: 01-30-2023 End: 05-15-2023 History of Social function [facility] Work Phone: Start: 01-30-2023 End: 05-15-2023 Tobacco use panel [facility] Work Phone: How hard is it for y ou to pay for the very basics like food, housing, medical care, and heating Not hard at all [facility] Work Phone: (I/We) worried handy er (my/our) food would run out before (I/we) got money to buy more. Never true [facility] Work Phone: In the past 12 month s, was there a time when you were not able to pay the mortgage or rent on time? No [facility] Work Phone: Alcohol Use: Alcohol Use: ; Occasional alcohol use. [employer]; [employer] Tobacco Use: Tobacco Use: ; N ever smoker. [employer]; [employer] Occasional alcohol use [email or web address]; [employer] Work Phone: Start: 01-08-2025 Sex Male (finding) [facility] Medical Equipment Procedure Code Equipment Code Equipment Origin al Text Equipment Identifier Dates Chips Bone Graft Cancellous Bone 4-10 Mm Container 15 Cc Volume - [id number] Start: 01-09-2023 [place] Contoured Bo, Size 3.5 X 65mm [id number] Start: 01-09-2023 Screw Bn 3.5mm 1 6mm [place] Spnl - [id number] Start: 01-09-2023 [place] Oct Polyax ial Screw Sz 3.5mm X 18mm [id number] Start: 01-09-[address] Spnl Oc t [place] Ns Lf - [id number] Start: 01-09-2023 Functional Status Date Assessment Result Facility 01-12-2023 Are you deaf, or do you have serious difficulty hearing No 01/12/2023 1:07 PM EDT Cele Jaimes RN No [facility] 01-12-2023 Are you blind, or do you have serious difficulty seeing, even when wearing glasses No 01/12/2023 1:07 PM EDT Cele Jaimes, CAESAR No [facility] 01-12-2023 Do you have serious difficulty walking or climbing stairs Yes 01/12/2023 1:07 PM EDT Cele Jaimes RN Yes [facility] 01-12-2023 Do you have difficul ty dressing or bathing No 01/12/2023 1:07 PM EDT Cele Jaimes RN No [facility] 01-12-2023 Because of a physica l, mental, or emotional condition, do you have difficulty doing errands alone such as visiting a physician's office or shopping No 01/12/2023 1:07 PM EDT Cele Jaimes RN No [facility] Mental Status Date Assessment Result Facility 01-12-2023 Because of a physica l, mental, or emotional condition, do you have serious difficulty concentrating, remembering, or making decisions No 01/12/2023 1:07 PM EDT Cele Jaimes RN No [facility] Clinical Notes 10-18-2022 to 03-31-2025 Court Hairston MD, PhD - 03/31/2025 3:30 PM EDTTelephone Encounter - Logan Charles - 01/31/2025 2:54 PM EDTTelephone Encounter - Logan Charles - 01/31/2025 2:54 PM EDTPatient Instructions Note Date & Type Note Facility 03-31-2025 History of Presen t illness Narrative NEUROSURGERY FOLLOW UP OFFICE NOTE Court Hairston MD, PhD Date of visit: March 31, 2025 Patient Name: Mr.Lonnie Shai Young Date of : 1975 Current Age: [age] year old Sex: male MRN/E# [id number] Last Office Visit: 01/31/2025 Chief Complaint: Patient presents with: Established Patient SUBJECTIVE: HPI On 02/13/2023 he presented to the office for his 1 month postoperative visit following a C3-6 posterior cervical decompression and fusion on 01/09/2023. He noted surgery had greatly improved his symptoms. He noted his right arm strength was about 85-95% improved. He was not able to fully lift his right arm up. He was taking Tylenol at times. It was recommended that he gradually return to work. He was to follow up in 3 months. At his last visit on 05/15/2023 he reported doing very well with about 95-97% improvement since surgery. He had continued paresthesia to right thumb, index and middle finger. He had complete resolution of neck pain, just had occasional neck stiffness. He was able to move his right arm above his head without any difficulties as well. 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 He denied any fevers, chills or drainage from incision site. He was extremely pleased with the outcome of his surgery thus far. 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 It was recommended he follow up in 6 months, but called in with worsening symptoms. At his last visit on he stated about a week ago he noted numbness and pain from his 1st 3 digits on the right up to his elbow. He noted the pain was constant and caused him to not be able to sleep at times. He noted he developed numbness to the left index finger. He was unsure of any new or worsened weakness to his arms. He noted moving helps relieved some of his pain, but staying still worsened his pain. He noted taking tylenol with some relief. He denied any weakness to his legs, falls, loss of bowel or bladder. He denied any neck pain. His imaging did not demonstrate any concerns with his screws. It was recommended he try taking ibuprofen for his symptoms. He was also prescribed gabapentin. He was referred to physical therapy. He was to follow up in 6 weeks. At his last visit on 10/09/2023 he stated he had been doing much better since his last visit. He noted he just finished with physical therapy and noted this helped his pain. He noted the horrible pain at night had since resolved. His numbness and tingling into the 1st 3 digits on the right had greatly improved. He continued with Gabapentin with relief. He denied any weakness. Overall, he was pleased with his surgery and progress. He had started weaning from his gabapentin. There was suspicion that his radiculopathy is a C7 radiculopathy. Although he did have mild sensory symptoms at this point he had no active interest in surgery and was quite pleased with his current status. It was recommended that he follow up in 6 months. At his last visit on 04/08/2024 he reported some neck soreness with improved paresthesia to his right thumb, index and middle fingers. Denied dexterity or imbalance issues. Denied any falls. He stated he had weaned off his gabapentin and had been treating his symptoms with tylenol and mobic. Denied fevers, chills or drainage from incision site-appeared to be well healed. Overall, he was pleased with the outcome of his surgery. Discussion for the possibility of adjacent segment degeneration developing was held. Due to this, it was recommended that he follow up once a year to keep an eye on the possibility, prompting his visit today. He presents for evaluation and plan of care. Symptoms: Neck soreness. 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 PAST MEDICAL HISTORY Diagnosis Date Carpal tunnel syndrome 02/28/2006 Cervical myelopathy (HCC) Difficult airway 01/09/2023 Internal hemorrhoids without mention of complication Lateral epicondylitis of elbow 02/28/2006 Medial epicondylitis of elbow 02/28/2006 Motion sickness PONV (postoperative nausea and vomiting) Sprain and strain of other specified sites of elbow and forearm PAST SURGICAL HISTORY Procedure Laterality Date ANKLE SURGERY HX Right 2010 ANKLE SURGERY HX Left 2008 x2 2007 and 2007 ARTHROSCOPY KNEE DIAGNOSTIC W/WO SYNOVIAL BX SPX age 17 Arthroscopy, knee Left NECK SURGERY HX 01/09/2023 C3-6 Decompression & Fusion REVISE MEDIAN N/CARPAL TUNNEL SURG Right 10/2022 FAMILY HISTORY Problem Relation Age of Onset Heart Father CAD None Mother Diabetes Father None Brother ALLERGIES Allergen Reactions Penicillins As a child- doesn;t remember reaction Current Outpatient Medications Medication Sig Dispense Refill meloxicam (MOBIC) 15 mg tablet multivit with min-folic acid (MEN'S MULTIVITAMIN GUMMIES) 200 mcg chew Take by mouth once daily. No current facility-administered medications for this visit. REVIEW OF SYSTEMS Review of Systems Constitutional: Negative for diaphoresis, fatigue and fever. HENT: Negative for congestion, sinus pressure and sore throat. Eyes: Negative for discharge and itching. Respiratory: Negative for cough, chest tightness and shortness of breath. Cardiovascular: Negative for chest pain, palpitations and leg swelling. Gastrointestinal: Negative for constipation, diarrhea, nausea and vomiting. Endocrine: Negative for cold intolerance and heat intolerance. Genitourinary: Negative for difficulty urinating, frequency and urgency. Musculoskeletal: Positive for neck stiffness. Negative for back pain, gait problem and neck pain. Skin: Negative for rash and wound. Allergic/Immunologic: Negative for environmental allergies and food allergies. Neurological: Negative for dizziness, weakness and numbness. Hematological: Does not bruise/bleed easily. Psychiatric/Behavioral: Negative for agitation. The patient is not nervous/anxious. OBJECTIVE: BP 118/80 Pulse 79 Resp 16 Wt 293 lb 6.9 oz (133.1kg) SpO2 96% Physical Exam General: No acute distress. MSK/Ext: Full strength in bilateral hands and wrists; full range of motion in cervical spine. Today no upper motor neuron findings or concern for recurrent myelopathy. Data Review IMAGING STUDIES: no new imaging Assessment: 1. S/P cervical spinal fusion (Z98.1) - Post-operative status post cervical spinal fusion approximately two years ago. - Occasional crepitus in the cervical region; no radicular symptoms, numbness, or tingling. - Neurological examination reveals no signs of myelopathy; reflexes are intact. - Discussed potential for adjacent segment degeneration over time, leading to arthritic changes above and below the fusion site. - Advised monitoring for any new or worsening symptoms, including radicular pain or neurological deficits. - Patient desires annual follow-up to monitor condition; agreed to continue yearly evaluations. - Reassured patient that current symptoms are not indicative of any serious underlying pathology. Plan: - Continue taking Mobic (meloxicam) as you have been for your knee and neck discomfort. - Maintain your regular activities, including golfing and basketball, as tolerated--being active is encouraged. - Watch for any new or worsening symptoms, such as increased neck pain, persistent popping/cracking, numbness, tingling, hand locking, weakness, or balance changes. - Contact the office promptly if you develop any of these symptoms or have other concerns before your next visit. - Schedule a routine spine check?up in one year; the office will help you set this appointment. Attestation: The following portions of the patient's history were reviewed, confirmed, and updated as necessary: allergies, current medications, past family history, past medical history, past social history, past surgical history, problem list, HPI, and ROS obtained by others. Some elements may be copied from a previous office note and have been reviewed/updated where appropriate. All portions reflect current medical decision making from today. The clinical and radiographic findings as well as the risks, benefits and alternatives of treatment have been reviewed in detail with the patient. The patient was advised to call the office if symptoms worsen or new symptoms develop. The patient expressed understanding and is in agreement with plan. Court Hairston MD, PhD This note was partially generated using [employer] voice recognition system, and there may be some incorrect words, spellings, and punctuation that were not noted in checking the note before saving. documented in this encounter [facility] 03-31-2025 Note HNO ID: [id number] Author: COURT HAIRSTON MD, PhD Service: ? Author Type: Physician Type: Progress Notes Filed: 03/31/2025 16:05 Note Text: NEUROSURGERY FOLLOW UP OFFICE NOTE Court Hairston MD, PhD Date of visit: March 31, 2025 Patient Name: Mr.Lonnie Shai Young Date of : 1975 Current Age: [age] year old Sex: male MRN/E# [id number] Last Office Visit: 01/31/2025 Chief Complaint: Patient presents with: Established Patient SUBJECTIVE: HPI On 02/13/2023 he presented to the office for his 1 month postoperative visit following a C3-6 posterior cervical decompression and fusion on 01/09/2023. He noted surgery had greatly improved his symptoms. He noted his right arm strength was about 85-95% improved. He was not able to fully lift his right arm up. He was taking Tylenol at times. It was recommended that he gradually return to work. He was to follow up in 3 months. At his last visit on 05/15/2023 he reported doing very well with about 95-97% improvement since surgery. He had continued paresthesia to right thumb, index and middle finger. He had complete resolution of neck pain, just had occasional neck stiffness. He was able to move his right arm above his head without any difficulties as well. 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 He denied any fevers, chills or drainage from incision site. He was extremely pleased with the outcome of his surgery thus far. 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 It was recommended he follow up in 6 months, but called in with worsening symptoms. At his last visit on he stated about a week ago he noted numbness and pain from his 1st 3 digits on the right up to his elbow. He noted the pain was constant and caused him to not be able to sleep at times. He noted he developed numbness to the left index finger. He was unsure of any new or worsened weakness to his arms. He noted moving helps relieved some of his pain, but staying still worsened his pain. He noted taking tylenol with some relief. He denied any weakness to his legs, falls, loss of bowel or bladder. He denied any neck pain. His imaging did not demonstrate any concerns with his screws. It was recommended he try taking ibuprofen for his symptoms. He was also prescribed gabapentin. He was referred to physical therapy. He was to follow up in 6 weeks. At his last visit on 10/09/2023 he stated he had been doing much better since his last visit. He noted he just finished with physical therapy and noted this helped his pain. He noted the horrible pain at night had since resolved. His numbness and tingling into the 1st 3 digits on the right had greatly improved. He continued with Gabapentin with relief. He denied any weakness. Overall, he was pleased with his surgery and progress. He had started weaning from his gabapentin. There was suspicion that his radiculopathy is a C7 radiculopathy. Although he did have mild sensory symptoms at this point he had no active interest in surgery and was quite pleased with his current status. It was recommended that he follow up in 6 months. At his last visit on 04/08/2024 he reported some neck soreness with improved paresthesia to his right thumb, index and middle fingers. Denied dexterity or imbalance issues. Denied any falls. He stated he had weaned off his gabapentin and had been treating his symptoms with tylenol and mobic. Denied fevers, chills or drainage from incision site-appeared to be well healed. Overall, he was pleased with the outcome of his surgery. Discussion for the possibility of adjacent segment degeneration developing was held. Due to this, it was recommended that he follow up once a year to keep an eye on the possibility, prompting his visit today. He presents for evaluation and plan of care. Symptoms: Neck soreness. 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 PAST MEDICAL HISTORY Diagnosis Date Carpal tunnel syndrome 02/28/2006 Cervical myelopathy (HCC) Difficult airway 01/09/2023 Internal hemorrhoids without mention of complication Lateral epicondylitis of elbow 02/28/2006 Medial epicondylitis of elbow 02/28/2006 Motion sickness PONV (postoperative nausea and vomiting) Sprain and strain of other specified sites of elbow and forearm PAST SURGICAL HISTORY Procedure Laterality Date ANKLE SURGERY HX Right 2011 ANKLE SURGERY HX Left 2008 x2 2006 and 2007 ARTHROSCOPY KNEE DIAGNOSTIC W/WO SYNOVIAL BX SPX age 17 Arthroscopy, knee Left NECK SURGERY HX 01/09/2023 C3-6 Decompression AND Fusion REVISE MEDIAN N/CARPAL TUNNEL SURG Right 10/2022 FAMILY HISTORY (more content not included)... [facility] 01-31-2025 Telephone encounter Note I left patient a vm to call when available to schedule yearly follow up no imaging needed [facility] 01-31-2025 Miscellaneous Notes I left patient a vm to call when available to schedule yearly follow up no imaging needed documented in this encounter [facility] 04-08-2024 History of Presen t illness Narrative NEUROSURGERY FOLLOW UP OFFICE NOTE Court Hairston MD, PhD Date of visit: April 08, 2024 Patient Name: Mr.Lonnie Shai Young Date of : 1975 Current Age: [age] year old Sex: male MRN/E# [id number] Last Office Visit: Visit date not found Chief Complaint: Patient presents with: Established Patient SUBJECTIVE: HPI On 02/13/2023 he presented to the office for his 1 month postoperative visit following a C3-6 posterior cervical decompression and fusion on 01/09/2023. He noted surgery had greatly improved his symptoms. He noted his right arm strength was about 85-95% improved. He was not able to fully lift his right arm up. He was taking Tylenol at times. It was recommended that he gradually return to work. He was to follow up in 3 months. At his last visit on 05/15/2023 he reported doing very well with about 95-97% improvement since surgery. He had continued paresthesia to right thumb, index and middle finger. He had complete resolution of neck pain, just had occasional neck stiffness. He was able to move his right arm above his head without any difficulties as well. 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 He denied any fevers, chills or drainage from incision site. He was extremely pleased with the outcome of his surgery thus far. 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 It was recommended he follow up in 6 months, but called in with worsening symptoms. At his last visit on he stated about a week ago he noted numbness and pain from his 1st 3 digits on the right up to his elbow. He noted the pain was constant and caused him to not be able to sleep at times. He noted he developed numbness to the left index finger. He was unsure of any new or worsened weakness to his arms. He noted moving helps relieved some of his pain, but staying still worsened his pain. He noted taking tylenol with some relief. He denied any weakness to his legs, falls, loss of bowel or bladder. He denied any neck pain. His imaging did not demonstrate any concerns with his screws. It was recommended he try taking ibuprofen for his symptoms. He was also prescribed gabapentin. He was referred to physical therapy. He was to follow up in 6 weeks. At his last visit on 10/09/2023 he stated he had been doing much better since his last visit. He noted he just finished with physical therapy and noted this helped his pain. He noted the horrible pain at night had since resolved. His numbness and tingling into the 1st 3 digits on the right had greatly improved. He continued with Gabapentin with relief. He denied any weakness. Overall, he was pleased with his surgery and progress. He had started weaning from his gabapentin. There was suspicion that his radiculopathy is a C7 radiculopathy. Although he did have mild sensory symptoms at this point he had no active interest in surgery and was quite pleased with his current status. It was recommended that he follow up in 6 months, prompting his visit today. He reports some neck soreness with improved paresthesia to his right thumb, index and middle fingers. Denies dexterity or imbalance issues. Denies any falls. He states he had weaned off his gabapentin and has been treating his symptoms with tylenol and mobic. Denies fevers, chills or drainage from incision site-appears to be well healed. Overall, he is pleased with the outcome of his surgery. Symptoms: Neck soreness. 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 PAST MEDICAL HISTORY Diagnosis Date Carpal tunnel syndrome 02/28/2006 Cervical myelopathy (HCC) Difficult airway 01/09/2023 Internal hemorrhoids without mention of complication Lateral epicondylitis of elbow 02/28/2006 Medial epicondylitis of elbow 02/28/2006 Motion sickness PONV (postoperative nausea and vomiting) Sprain and strain of other specified sites of elbow and forearm PAST SURGICAL HISTORY Procedure Laterality Date ANKLE SURGERY HX Right 2010 ANKLE SURGERY HX Left 2007 x2 2006 and 2007 ARTHROSCOPY KNEE DIAGNOSTIC W/WO SYNOVIAL BX SPX age 17 Arthroscopy, knee Left NECK SURGERY HX 01/09/2023 C3-6 Decompression & Fusion REVISE MEDIAN N/CARPAL TUNNEL SURG Right 10/2022 FAMILY HISTORY Problem Relation Age of Onset Heart Father CAD None Mother Diabetes Father None Brother ALLERGIES Allergen Reactions Penicillins As a child- doesn;t remember reaction Current Outpatient Medications Medication Sig Dispense Refill meloxicam (MOBIC) 15 mg tablet multivit with min-folic acid (MEN'S MULTIVITAMIN GUMMIES) 200 mcg chew Take by mouth once daily. No current facility-administered medications for this visit. REVIEW OF SYSTEMS Review of Systems Constitutional: Negative for diaphoresis, fatigue and fever. HENT: Negative for drooling and trouble swallowing. Eyes: Negative for visual disturbance. Respiratory: Negative for cough, chest tightness and shortness of breath. Cardiovascular: Negative for chest pain, palpitations and leg swelling. Gastrointestinal: Negative for constipation, diarrhea and nausea. Endocrine: Negative for cold intolerance and heat intolerance. Genitourinary: Negative for difficulty urinating and dysuria. Musculoskeletal: Positive for neck pain. Negative for back pain and gait problem. Skin: Negative for color change and pallor. Allergic/Immunologic: Negative for immunocompromised state. Neurological: Positive for numbness. Negative for seizures, speech difficulty and headaches. Hematological: Does not bruise/bleed easily. Psychiatric/Behavioral: Negative for agitation, behavioral problems and confusion. OBJECTIVE: BP 157/94 Pulse 94 Ht 6' 1 (1.85m) Wt 311 lb 1.1 oz (141.1kg) SpO2 96% BMI 41.05 kg/(m^2). Physical Exam I repeated a physical examination with Sahil today. Line he was very upbeat and pleasant. He is very happy with his surgical outcome. He was bragging about his recent golf exploit. He had very full power in all upper extremity myotomes bilaterally. He did report slight numbness of his pointer finger on his right hand but this is not a concern to him. He does not exhibit Tennille sign at this time. Data Review IMAGING STUDIES: no new imaging Assessment and Plan: This point I am very pleased that Sahil has had a good long-term outcome especially given the freight that he had with his delayed C5 palsy that is of course fully recovered. I talked with Sahil about the possibility of adjacent segment degeneration which can manifest many years ReVia several decades after initial surgery. I would like to continue seeing him once a year largely to keep an eye on this possibility. I have emphasized the importance of contact my office in the interim if he should have an important change in his symptoms. It was nice to see Sahil today. Attestation: The following portions of the patient's history were reviewed, confirmed, and updated as necessary: allergies, current medications, past family history, past medical history, past social history, past surgical history, problem list, HPI, and ROS obtained by others. Some elements may be copied from a previous office note and have been reviewed/updated where appropriate. All portions reflect current medical decision making from today. The clinical and radiographic findings as well as the risks, benefits and alternatives of treatment have been reviewed in detail with the patient. The patient was advised to call the office if symptoms worsen or new symptoms develop. The patient expressed understanding and is in agreement with plan. Court Hairston MD, PhD This note was partially generated using Repeatit voice recognition system, and there may be some incorrect words, spellings, and punctuation that were not noted in checking the note before saving. documented in this encounter [facility] 04-08-2024 Note HNO ID: [id number] Author: COURT HAIRSTON MD, PhD Service: ? Author Type: Physician Type: Progress Notes Filed: 04/08/2024 16:28 Note Text: NEUROSURGERY FOLLOW UP OFFICE NOTE Court Hairston MD, PhD Date of visit: April 08, 2024 Patient Name: Mr.Lonnie Shai Young Date of : 1975 Current Age: [age] year old Sex: male MRN/E# [id number] Last Office Visit: Visit date not found Chief Complaint: Patient presents with: Established Patient SUBJECTIVE: HPI On 02/13/2023 he presented to the office for his 1 month postoperative visit following a C3-6 posterior cervical decompression and fusion on 01/09/2023. He noted surgery had greatly improved his symptoms. He noted his right arm strength was about 85-95% improved. He was not able to fully lift his right arm up. He was taking Tylenol at times. It was recommended that he gradually return to work. He was to follow up in 3 months. At his last visit on 05/15/2023 he reported doing very well with about 95-97% improvement since surgery. He had continued paresthesia to right thumb, index and middle finger. He had complete resolution of neck pain, just had occasional neck stiffness. He was able to move his right arm above his head without any difficulties as well. 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 He denied any fevers, chills or drainage from incision site. He was extremely pleased with the outcome of his surgery thus far. 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 It was recommended he follow up in 6 months, but called in with worsening symptoms. At his last visit on he stated about a week ago he noted numbness and pain from his 1st 3 digits on the right up to his elbow. He noted the pain was constant and caused him to not be able to sleep at times. He noted he developed numbness to the left index finger. He was unsure of any new or worsened weakness to his arms. He noted moving helps relieved some of his pain, but staying still worsened his pain. He noted taking tylenol with some relief. He denied any weakness to his legs, falls, loss of bowel or bladder. He denied any neck pain. His imaging did not demonstrate any concerns with his screws. It was recommended he try taking ibuprofen for his symptoms. He was also prescribed gabapentin. He was referred to physical therapy. He was to follow up in 6 weeks. At his last visit on 10/09/2023 he stated he had been doing much better since his last visit. He noted he just finished with physical therapy and noted this helped his pain. He noted the horrible pain at night had since resolved. His numbness and tingling into the 1st 3 digits on the right had greatly improved. He continued with Gabapentin with relief. He denied any weakness. Overall, he was pleased with his surgery and progress. He had started weaning from his gabapentin. There was suspicion that his radiculopathy is a C7 radiculopathy. Although he did have mild sensory symptoms at this point he had no active interest in surgery and was quite pleased with his current status. It was recommended that he follow up in 6 months, prompting his visit today. He reports some neck soreness with improved paresthesia to his right thumb, index and middle fingers. Denies dexterity or imbalance issues. Denies any falls. He states he had weaned off his gabapentin and has been treating his symptoms with tylenol and mobic. Denies fevers, chills or drainage from incision site-appears to be well healed. Overall, he is pleased with the outcome of his surgery. Symptoms: Neck soreness. 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 PAST MEDICAL HISTORY Diagnosis Date Carpal tunnel syndrome 02/28/2006 Cervical myelopathy (HCC) Difficult airway 01/09/2023 Internal hemorrhoids without mention of complication Lateral epicondylitis of elbow 02/28/2006 Medial epicondylitis of elbow 02/28/2006 Motion sickness PONV (postoperative nausea and vomiting) Sprain and strain of other specified sites of elbow and forearm PAST SURGICAL HISTORY Procedure Laterality Date ANKLE SURGERY HX Right 2010 ANKLE SURGERY HX Left 2008 x2 2007 and 2007 ARTHROSCOPY KNEE DIAGNOSTIC W/WO SYNOVIAL BX SPX age 17 Arthroscopy, knee Left NECK SURGERY HX 01/09/2023 C3-6 Decompression AND Fusion REVISE MEDIAN N/CARPAL TUNNEL SURG Right 10/2022 FAMILY HISTORY Problem Relation Age of Onset Heart Father CAD None Mother Diabetes Father None Brother ALLERGIES Allergen Reactions Penicillins As a child- doesn;t remember reaction (more content not included)... [facility] 08-30-2023 Miscellaneous Notes VINICIUS Oakley Janes [phone] called regarding restrictions for PT. Discussed at length. Vicky Ellis RN documented in this encounter [facility] 08-21-2023 History of Presen t illness Narrative NEUROSURGERY FOLLOW UP OFFICE NOTE Court Hairston MD, PhD Date of visit: August 21, 2023 Patient Name: Mr.Lonnie Shai Young Date of : 1975 Current Age: [age] year old Sex: male MRN/E# [id number] Last Office Visit: 05/15/2023 Chief Complaint: Patient presents with: Established Patient SUBJECTIVE: HPI On 02/13/2023 he presented to the office for his 1 month postoperative visit following a C3-6 posterior cervical decompression and fusion on 01/09/2023. He noted surgery had greatly improved his symptoms. He noted his right arm strength was about 85-95% improved. He was not able to fully lift his right arm up. He was taking Tylenol at times. It was recommended that he gradually return to work. He was to follow up in 3 months. At his last visit on 05/15/2023 he reported doing very well with about 95-97% improvement since surgery. He had continued paresthesia to right thumb, index and middle finger. He had complete resolution of neck pain, just had occasional neck stiffness. He was able to move his right arm above his head without any difficulties as well. 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 He denied any fevers, chills or drainage from incision site. He was extremely pleased with the outcome of his surgery thus far. 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 It was recommended he follow up in 6 months, but called in with worsening symptoms, prompting his visit today. Today he states about a week ago he noted numbness and pain from his 1st 3 digits on the right up to his elbow. He notes the pain is constant and causes him to not be able to sleep at times. He notes today he developed numbness to the left index finger. He is unsure of any new or worsened weakness to his arms. He notes moving helps relieve some of his pain, but staying still worsens his pain. He notes taking tylenol with some relief. He denies any weakness to his legs, falls, loss of bowel or bladder. He denies any neck pain. He presents for imaging review, evaluation and plan of care. Symptoms: worsening paresthesia to right thumb, index and middle finger. Numbness to left index finger. 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: Tylenol Mobic PREVIOUS SURGERY: SURGERY #1: C3-6 posterior cervical decompression and fusion- 01/09/2023 PAIN EVALUATION 08/21/2023 0851 Pain Level: 8 Pain Location: Neck Description: Numbness;Tingling;Shooting Duration Units: Months Frequency: Continuous Intervention/Comfort measure: Medication PAST MEDICAL HISTORY Diagnosis Date Carpal tunnel syndrome 02/28/2006 Cervical myelopathy (HCC) Difficult airway 01/09/2023 Internal hemorrhoids without mention of complication Lateral epicondylitis of elbow 02/28/2006 Medial epicondylitis of elbow 02/28/2006 Motion sickness PONV (postoperative nausea and vomiting) Sprain and strain of other specified sites of elbow and forearm PAST SURGICAL HISTORY Procedure Laterality Date ANKLE SURGERY HX Right 2011 ANKLE SURGERY HX Left 2008 x2 2007 and 2008 ARTHROSCOPY KNEE DIAGNOSTIC W/WO SYNOVIAL BX SPX age 17 Arthroscopy, knee Left NECK SURGERY HX 01/09/2023 C3-6 Decompression & Fusion REVISE MEDIAN N/CARPAL TUNNEL SURG Right 10/2022 FAMILY HISTORY Problem Relation Age of Onset Heart Father CAD None Mother Diabetes Father None Brother ALLERGIES Allergen Reactions Penicillins As a child- doesn;t remember reaction Current Outpatient Medications Medication Sig Dispense Refill acetaminophen (TYLENOL) 325 mg tablet Take 650 mg by mouth every 6 hours as needed. meloxicam (MOBIC) 15 mg tablet multivit with min-folic acid (MEN'S MULTIVITAMIN GUMMIES) 200 mcg chew Take by mouth once daily. LORazepam (ATIVAN) 1 mg tablet Take 1 mg by mouth every 8 hours as needed. No current facility-administered medications for this visit. REVIEW OF SYSTEMS Review of Systems Constitutional: Negative for diaphoresis, fatigue and fever. HENT: Negative for congestion, sinus pressure and sore throat. Eyes: Negative for discharge and itching. Respiratory: Negative for cough, chest tightness and shortness of breath. Cardiovascular: Negative for chest pain, palpitations and leg swelling. Gastrointestinal: Negative for constipation, diarrhea, nausea and vomiting. Endocrine: Negative for cold intolerance and heat intolerance. Genitourinary: Negative for difficulty urinating, frequency and urgency. Musculoskeletal: Negative for back pain, gait problem, neck pain and neck stiffness. Skin: Negative for rash and wound. Allergic/Immunologic: Negative for environmental allergies and food allergies. Neurological: Positive for numbness. Negative for dizziness, weakness, light-headedness and headaches. Hematological: Does not bruise/bleed easily. Psychiatric/Behavioral: Negative for agitation. The patient is not nervous/anxious. OBJECTIVE: BP 134/85 Pulse 69 Ht 6' 1 (1.85m) Wt 310 lb 3 oz (140.7kg) SpO2 97% BMI 40.93 kg/(m^2). Physical Exam I repeated physical examination with Sahil today. He had full power in all upper extremity myotomes bilaterally. He did have numbness of his right middle finger and thumb. I felt that he had lost his biceps and brachial radialis reflexes on the right where is the remainder of his upper extremity reflexes were intact. Data Review IMAGING STUDIES: XR Cervical 08/21/2023: in process Assessment and Plan: 1 he is now more than 6 months out from his posterior cervical decompression fusion for myelopathy. At the time of his initial assessment we recognize diffuse degenerative changes throughout his cervical spine including prominent disc herniations throughout. My impression is that he seems to have new neurological symptoms likely referable to these. X-rays do not reveal any concerns with his screws. So far Sahil has only tried Tylenol. Given the time since his surgery is now acceptable for Sahil to try ibuprofen. Will also prescribe gabapentin. I think that we need to get him into physical therapy as this would enable us to obtain an MRI scan if symptoms do not improve with further conservative management. I have suggested follow-up with him in about 6 weeks time. I have asked that he contact me in interim if his symptoms are worse and in particular if he should develop any arm weakness. Attestation: The following portions of the patient's history were reviewed, confirmed, and updated as necessary: allergies, current medications, past family history, past medical history, past social history, past surgical history, problem list, HPI, and ROS obtained by others. Some elements may be copied from a previous office note and have been reviewed/updated where appropriate. All portions reflect current medical decision making from today. The clinical and radiographic findings as well as the risks, benefits and alternatives of treatment have been reviewed in detail with the patient. The patient was advised to call the office if symptoms worsen or new symptoms develop. The patient expressed understanding and is in agreement with plan. Court Hairston MD, PhD This note was partially generated using Repeatit voice recognition system, and there may be some incorrect words, spellings, and punctuation that were not noted in checking the note before saving. documented in this encounter [facility] 05-15-2023 History of Presen t illness Narrative NEUROSURGERY FOLLOW UP OFFICE NOTE Court Hairston MD, PhD Date of visit: May 15, 2023 Patient Name: Mr.Lonnie Shai Young Date of : 1975 Current Age: [age] year old Sex: male MRN/E# [id number] Last Office Visit: 02/13/2023 Chief Complaint: Patient presents with: Established Patient SUBJECTIVE: HPI The patient was last evaluated in the office on 02/13/2023 for his 1 month postoperative visit following a C3-6 posterior cervical decompression and fusion on 01/09/2023. He notes surgery had greatly improved his symptoms. He noted his right arm strength was about 85-95% improved. He was not able to fully lift his right arm up. He was taking Tylenol at times. It was recommended that he gradually return to work. He was to follow up in 3 months, prompting his visit today. Today he reports doing very well with about 95-97% improvement since surgery. He has continued paresthesia to right thumb, index and middle finger. He has complete resolution of neck pain, just has occasional neck stiffness. He is able to move his right arm above his head without any difficulties as well. 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 He denies any fevers, chills or drainage from incision site. He is extremely pleased with the outcome of his surgery thus far. He presents for evaluation and plan of care. Symptoms: Continued paresthesia to right thumb, index and middle finger. 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 PAST MEDICAL HISTORY Diagnosis Date Carpal tunnel syndrome 02/28/2006 Cervical myelopathy (HCC) Difficult airway 01/09/2023 Internal hemorrhoids without mention of complication Lateral epicondylitis of elbow 02/28/2006 Medial epicondylitis of elbow 02/28/2006 Motion sickness PONV (postoperative nausea and vomiting) Sprain and strain of other specified sites of elbow and forearm PAST SURGICAL HISTORY Procedure Laterality Date ANKLE SURGERY HX Right 2010 ANKLE SURGERY HX Left 2008 x2 2007 and 2008 ARTHROSCOPY KNEE DIAGNOSTIC W/WO SYNOVIAL BX SPX age 17 Arthroscopy, knee Left NECK SURGERY HX 01/09/2023 C3-6 Decompression & Fusion REVISE MEDIAN N/CARPAL TUNNEL SURG Right 10/2022 FAMILY HISTORY Problem Relation Age of Onset Heart Father CAD None Mother Diabetes Father None Brother ALLERGIES Allergen Reactions Penicillins As a child- doesn;t remember reaction Current Outpatient Medications Medication Sig Dispense Refill meloxicam (MOBIC) 15 mg tablet multivit with min-folic acid (MEN'S MULTIVITAMIN GUMMIES) 200 mcg chew Take by mouth once daily. LORazepam (ATIVAN) 1 mg tablet Take 1 mg by mouth every 8 hours as needed. No current facility-administered medications for this visit. REVIEW OF SYSTEMS Review of Systems Constitutional: Negative for diaphoresis, fatigue and fever. HENT: Negative for drooling and trouble swallowing. Eyes: Negative for visual disturbance. Respiratory: Negative for cough, chest tightness and shortness of breath. Cardiovascular: Negative for chest pain, palpitations and leg swelling. Gastrointestinal: Negative for constipation, diarrhea and nausea. Endocrine: Negative for cold intolerance and heat intolerance. Genitourinary: Negative for difficulty urinating and dysuria. Musculoskeletal: Positive for neck stiffness. Negative for back pain, gait problem and neck pain. Skin: Negative for color change and pallor. Allergic/Immunologic: Negative for immunocompromised state. Neurological: Positive for numbness. Negative for seizures, speech difficulty and headaches. Hematological: Does not bruise/bleed easily. Psychiatric/Behavioral: Negative for agitation, behavioral problems and confusion. OBJECTIVE: BP 132/86 Pulse 82 Ht 6' 1 (1.85m) Wt 306 lb 7 oz (139.0kg) SpO2 96% BMI 40.44 kg/(m^2). Physical Exam I repeated a physical examination with Sahil today. His surgical incision is very nicely healed. I examined Sahil's upper extremities. He does continue to report numbness that is mild to the radial 3 digits of his right hand but he says that this is improving. He had 5 of 5 strength in all upper extremity myotomes and otherwise had intact sensation. I note that the weakness that Sahil had been having related to his delayed C5 palsy is now completely absent. 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 Sahil is very pleased with his neurological improvement. He has returned to work without difficulty or concern. We agreed to a repeat assessment about 6 months time. I also discussed with Sahil that I do not want to lose touch with him as he does have some risk of adjacent segment degeneration going forward and this is obviously something that would like to catch earlier than later should it develop. Sahil should of course contact me at any point time should he have problems or concerns. Attestation: The following portions of the patient's history were reviewed, confirmed, and updated as necessary: allergies, current medications, past family history, past medical history, past social history, past surgical history, problem list, HPI, and ROS obtained by others. Some elements may be copied from a previous office note and have been reviewed/updated where appropriate. All portions reflect current medical decision making from today. The clinical and radiographic findings as well as the risks, benefits and alternatives of treatment have been reviewed in detail with the patient. The patient was advised to call the office if symptoms worsen or new symptoms develop. The patient expressed understanding and is in agreement with plan. Court Hairston MD, PhD This note was partially generated using Repeatit voice recognition system, and there may be some incorrect words, spellings, and punctuation that were not noted in checking the note before saving. 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 Patient notes that his right arm weakness has improved slightly since his last visit. He notes over the last few days he has developed right thumb numbness. He notes he is able to lift his arm slightly higher, but is unable to hold his arm up without it slowly falling down. He notes his pre surgical symptoms have resolved at this time. Incision: Healed Current Outpatient Medications Medication Sig Dispense Refill multivit with min-folic acid (MEN'S MULTIVITAMIN GUMMIES) 200 mcg chew Take by mouth once daily. LORazepam (ATIVAN) 1 mg tablet Take 1 mg by mouth every 8 hours as needed. methocarbamol (ROBAXIN) 750 mg tablet Take 1 tablet by mouth three times daily. (Patient not taking: Reported on 01/30/2023) 21 tablet 0 oxyCODONE-acetaminophen (PERCOCET) 5-325 mg tablet Take 1-2 tablets by mouth every 6 hours as needed. Do not take more than 6 tablets per day (Patient not taking: Reported on 01/30/2023) 24 tablet 0 No current facility-administered medications for this visit. Review of Systems Constitutional: Negative for diaphoresis, fatigue and fever. HENT: Negative for congestion, sinus pressure and sore throat. Eyes: Negative for discharge and itching. Respiratory: Negative for cough, chest tightness and shortness of breath. Cardiovascular: Negative for chest pain, palpitations and leg swelling. Gastrointestinal: Negative for constipation, diarrhea, nausea and vomiting. Endocrine: Negative for cold intolerance and heat intolerance. Genitourinary: Negative for difficulty urinating, frequency and urgency. Musculoskeletal: Negative for back pain, gait problem, neck pain and neck stiffness. Skin: Negative for rash and wound. Allergic/Immunologic: Negative for environmental allergies and food allergies. Neurological: Positive for numbness. Negative for dizziness, weakness, light-headedness and headaches. Hematological: Does not bruise/bleed easily. Psychiatric/Behavioral: Negative for agitation. The patient is not nervous/anxious. PAIN EVALUATION No data found in the last 1 encounters. PHYSICAL EXAM: Physical Exam General Examination BP 123/87 (BP Site: Right Arm, BP Position: Sitting, BP Cuff Size: Extra Large Adult) Pulse 85 Ht 6' 1 (1.854 m) Wt 297 lb 6.4 oz (134.9 kg) SpO2 98% BMI 39.24 kg/m General Exam Neurological Exam Motor Examination and Coordination Neuromuscular Examination Extremity Muscles Upper Extremity Right Left Shoulder abduction 4 5 Elbow flexion 4 5 Elbow extension 5 5 Wrist flexion 5 5 Wrist extension 5 5 Finger flexion/traffic enumerator 5 5 Reflexes Deep tendon reflexes graded by MRC Assessment and Plan: Sahil presented a week ago with a classic post-operative C5 palsy which did not have onset until after his discharge. He returns today with clear and marked improvement in his right C5 function as would be expected with a classic post-operative C5 palsy. Given his good and expected recovery trajectory I do not feel that additional imaging is currently indicated. I would like to see him again in 2w time. I asked that he contact my office if he should have a worsening of his symptoms at any point. Sahil expressed agreement with and understanding of the plan. Attestation: The following portions of the patient's history were reviewed, confirmed, and updated as necessary: allergies, current medications, past family history, past medical history, past social history, past surgical history, problem list, HPI, and ROS obtained by others. Some elements may be copied from a previous office note and have been reviewed/updated where appropriate. All portions reflect current medical decision making from today. The clinical and radiographic findings as well as the risks, benefits and alternatives of treatment have been reviewed in detail with the patient. The patient was advised to call the office if symptoms worsen or new symptoms develop. The patient expressed understanding and is in agreement with plan. Court Hairston MD, PhD This note was partially generated using Repeatit voice recognition system, and there may be some incorrect words, spellings, and punctuation that were not noted in checking the note before saving. 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 Patient feels that surgery has greatly improved his pre surgical symptoms. He notes his pain is a 2 or 3 out or 10 and he is only taking Tylenol when needed. He notes his numbness and tingling has resolved. He notes after he was discharged, he has been unable to fully lift his right arm up. He denies any difficulties with pushing, but notes pulling is difficult. He notes weakness to his right arm. Overall, he is pleased with his surgery. Incision: Dry and intact, without redness or drainage noted. Mehran and drain suture removed at today's visit. Patient tolerated well. Imaging: XR Cervical 01/23/2023: in process Current Outpatient Medications Medication Sig Dispense Refill methocarbamol (ROBAXIN) 750 mg tablet Take 1 tablet by mouth three times daily. 21 tablet 0 oxyCODONE-acetaminophen (PERCOCET) 5-325 mg tablet Take 1-2 tablets by mouth every 6 hours as needed. Do not take more than 6 tablets per day 24 tablet 0 multivit with min-folic acid (MEN'S MULTIVITAMIN GUMMIES) 200 mcg chew Take by mouth once daily. LORazepam (ATIVAN) 1 mg tablet Take 1 mg by mouth every 8 hours as needed. No current facility-administered medications for this visit. Review of Systems Constitutional: Negative for diaphoresis, fatigue and fever. HENT: Negative for congestion, sinus pressure and sore throat. Eyes: Negative for discharge and itching. Respiratory: Negative for cough, chest tightness and shortness of breath. Cardiovascular: Negative for chest pain, palpitations and leg swelling. Gastrointestinal: Negative for constipation, diarrhea, nausea and vomiting. Endocrine: Negative for cold intolerance and heat intolerance. Genitourinary: Negative for difficulty urinating, frequency and urgency. Musculoskeletal: Positive for neck pain. Negative for back pain, gait problem and neck stiffness. Skin: Negative for rash and wound. Allergic/Immunologic: Negative for environmental allergies and food allergies. Neurological: Negative for dizziness, weakness, light-headedness, numbness and headaches. Hematological: Does not bruise/bleed easily. Psychiatric/Behavioral: Negative for agitation. The patient is not nervous/anxious. PAIN EVALUATION No data found in the last 1 encounters. PHYSICAL EXAM: Physical Exam General Examination BP 132/86 (BP Site: Left Arm, BP Position: Sitting, BP Cuff Size: Large Adult) Pulse 100 Ht 6' 1 (1.854 m) Wt 294 lb 5 oz (133.5 kg) SpO2 97% BMI 38.83 kg/m General Exam Neurological Exam Mental Status Sahil's cervical incision is well-healed. There is no underlying fluctuance or suggestion of infection. Motor Examination and Coordination Neuromuscular Examination Extremity Muscles Upper Extremity Right Left Shoulder abduction 2 5 Elbow flexion 4- 5 Elbow extension 5 5 Wrist flexion 5 5 Wrist extension 5 5 Finger flexion/traffic enumerator 5 5 Reflexes Deep tendon reflexes graded by MRC Sensation Sahil had numbness meng his right deltoid. Assessment and Plan: Sahil has a classic delayed C5 palsy on the right. His x-rays today do not suggest a hardware problem to my eye. I provided him with reassurance that this normally recovers fully. We agreed together to hold off on further imaging for now. I will reassess him in a week to see how his strength is recovering. Attestation: The following portions of the patient's history were reviewed, confirmed, and updated as necessary: allergies, current medications, past family history, past medical history, past social history, past surgical history, problem list, HPI, and ROS obtained by others. Some elements may be copied from a previous office note and have been reviewed/updated where appropriate. All portions reflect current medical decision making from today. The clinical and radiographic findings as well as the risks, benefits and alternatives of treatment have been reviewed in detail with the patient. The patient was advised to call the office if symptoms worsen or new symptoms develop. The patient expressed understanding and is in agreement with plan. oCurt Hairston MD, PhD This note was partially generated using Repeatit voice recognition system, and there may be some incorrect words, spellings, and punctuation that were not noted in checking the note before saving. documented in this encounter [facility] 01-18-2023 Miscellaneous Notes PATIENT INFORMATION Record ID: [id number] [facility]: [facility] [place] Attending: Court Hairston Center: [facility] INSTRUCTIONS All Clear SN to remind patient of next upcoming appointment date, time, location All Clear All Clear All Clear SURVEY INFORMATION Medical/Nurse Air Traffic Control Manager: Dyllan Barlow 1. Your discharge instructions are important in guiding you through the recovery process. Is there anything I could help you clarify on your discharge instructions? (Standard Question) No 2. Do you have your follow up appointment related to your hospital stay scheduled within the next 30 days? (Standard Question) Yes 3. Do you have all the necessary equipment and supplies at home? (Standard Question) Yes 4. Many patients have concerns about their medications once they are home. Do you have any questions about getting or taking your medications? (Standard Question) No 5. Do you have any new or different symptoms? (Standard Question) No documented in this encounter [facility] 12-27-2022 History of Presen t illness Narrative Bactroban ordered for patient for positive staph swab. Called patient and provided instructions on how to use ointment and chlorhexidine wash. Patient thankful and understanding. Encouraged him to call with further questions or concerns. Vicky Ellis RN documented in this encounter [facility] 12-26-2022 History and physical note HISTORY AND PHYSICAL EXAMINATION SERVICE DATE: 12/26/2022 SERVICE TIME: 1:58 PM PRIMARY CARE PHYSICIAN: Dali Min MD REASON FOR VISIT: Sahil Young is a 47 year old male who is scheduled for Procedure(s): C3-6 posterior cervical decompression and fusion (N/A) ARTHRODESIS CERVICAL BELOW C2, 2ND CERVICAL LEVEL (N/A) ARTHRODESIS CERVICAL BELOW C2, 3RD CERVICAL LEVEL (N/A) DECOMPRESSION LAMINECTOMY CERVICAL, FACETECTOMY AND FORAMINOTOMY, SPINAL OR LATERAL RECESS STENOSIS LEVEL 1 (N/A) DECOMPRESSION LAMINECTOMY 1ST ADD L CERVICAL SEGMENT (N/A) DECOMPRESSION LAMINECTOMY 2ND ADD L CERVICAL SEGMENT (N/A) POSTERIOR SEGMENTAL INSTRUMENTATION FOLLOWING CERVICAL FUSION 3-6 LEVELS (N/A) ALLOGRAFT FOR SPINE SURGERY MORSELIZED (N/A) AUTOGRAFT FOR SPINE SURGERY ONLY, OBTAINED FROM SAME INCISION (N/A) at the request of Dr. Court Hairston for routine H&P. My final recommendation will be communicated back to the requesting physician by way of shared medical record or letter. Subjective The patient has the following: ACTIVE PROBLEM LIST Internal Hemorrhoids Without Mention of Complication Sciatica Cervical Myelopathy (Hcc) Preop Testing Class 3 Severe Obesity Without Serious Comorbidity in Adult (Hcc) COVID-19 Immunization Status Overdue - COVID-19 VACCINE (4 - Booster for Moderna series) Overdue since 11/16/2021 09/21/2021 Imm Admin: COVID-19 original vaccine, age 12+ yr, monovalent ([place]-Gemmyo - PURPLE TOP) 01/28/2021 Imm Admin: COVID-19 original vaccine, full dose, monovalent (MODERNA) 12/31/2020 Imm Admin: COVID-19 original vaccine, full dose, monovalent (MODERNA) CHIEF COMPLAINT: The reason for this visit is to perform a comprehensive review of the patient's past medical history, assess their current health status and obtain any additional testing required based on anesthesia guidelines. We will also identify any potential anesthesia problems or contraindications to the planned procedure. HPI: Sahil is a 47 year old male presenting for PAT. History of posterior neck pain with numbness and weakness to the right arm. States symptoms are worsening and now starting to affect the left arm. He is also having some weakness to the right arm with lifting. He was found to have cervical myelopathy. He takes Meloxicam daily which does help give some relief. After discussion with the surgeon, the patient agrees to surgical intervention. REVIEW OF SYSTEMS: General: No weight loss, malaise or fevers. Neurological: No history of TIA's, stroke, AIRPLANE CABIN ATTENDANT tumor, impaired sensorium, hemiplegia, paraplegia or quadraplegia. No neurological symptoms or problems. Respiratory: No history of current cough or dyspnea, or pneumonia in the past 6 weeks. No history of respiratory/pulmonary symptoms or problems. Cardiovascular: No history of HTN requiring medication, no history of angina, CHF, MA, cardiac surgery or stents. Denies rest pain, gangrene or revascularization/amputation for PVD. No history of cardiovascular symptoms or problems. GI: No history of GI symptoms or problems. No history of esophageal varices, recent ascites, or ETOH greater than 2 drinks per day. : No history of dysuria, frequency or incontinence, stones or chronic kidney disease. No difficulty urinating, nocturia > 1 time per night or hematuria. Endocrine: No history of diabetes. Has not taken steroids within the past 30 days. No history of endocrinological symptoms or problems. Hematology: No history of bleeding or clotting disorder. Patient is not taking anti-coagulation or platelet medications. No history of hematological symptoms or problems. Oncology: No history of CA metastasis, chemo within 30 days, or radiotherapy within 90 days. No history of oncological symptoms or problems. Psych: No history of psychiatric symptoms or problems. Musculoskeletal: See HPI. Positive for: back pain. Skin: Negative for lesions, rash and itching. PAST MEDICAL HISTORY Diagnosis Date Carpal tunnel syndrome 02/28/2006 Cervical myelopathy (HCC) Internal hemorrhoids without mention of complication Lateral epicondylitis of elbow 02/28/2006 Medial epicondylitis of elbow 02/28/2006 Sprain and strain of other specified sites of elbow and forearm PAST SURGICAL HISTORY Procedure Laterality Date ANKLE SURGERY HX Right 2010 ANKLE SURGERY HX Left 2008 x2 2006 and 2008 ARTHROSCOPY KNEE DIAGNOSTIC W/WO SYNOVIAL BX SPX age 17 Arthroscopy, knee Left REVISE MEDIAN N/CARPAL TUNNEL SURG Right 10/2022 FAMILY HISTORY Problem Relation Age of Onset Heart Father CAD None Mother Diabetes Father None Brother Social History Tobacco Use Smoking status: Never Smokeless tobacco: Never Substance Use Topics Alcohol use: Yes Comment: occasional Drug use: No Prior to Admission medications as of 12/26/22 1332 Medication Sig Last Dose Taking multivit with min-folic acid (MEN'S MULTIVITAMIN GUMMIES) 200 mcg chew Take by mouth once daily. Taking Yes meloxicam (MOBIC) 15 mg tablet Take 15 mg by mouth once daily. Taking Yes LORazepam (ATIVAN) 1 mg tablet Take 1 mg by mouth every 8 hours as needed. No medication comments found. ALLERGIES Allergen Reactions Penicillins As a child- doesn;t remember reaction Objective PHYSICAL EXAM: General: alert and oriented, healthy appearance and obese. Pertinent negatives noted - not distressed. Skin: normal color, no rash or lesions. HEENT: EOM intact and pupils equal round. Cardiovascular: regular rate and rhythm, normal S1 and S2, no rub, murmurs, or gallop. Respiratory: normal breath sounds, no wheezes or crackles. Abdomen: bowel sounds present and soft. Pertinent negatives noted - not tender. Extremities: no deformity, no edema or tenderness, no joint swelling or clubbing. Neurological: normal cognition and motor skills. Gait normal. No weakness or sensory deficit. PAIN ASSESSMENT: VITALS: BP 128/80 Pulse 80 Temp 98.2 Resp 18 Ht 6' 1 (1.85m) Wt 306 lb (138.8kg) SpO2 97% BMI 40.38 kg/(m^2). Diagnostic tests reviewed for today's visit: Lab Value Units Date High Low HB No results within date range. HCT No results within date range. WBC No results within date range. PLT No results within date range. NA No results within date range. K No results within date range. GLUC No results within date range. BUN No results within date range. CREAT No results within date range. PTSEC No results within date range. INR No results within date range. APTT No results within date range. ALT No results within date range. AST No results within date range. TBILI No results within date range. TSH No results within date range. Lab Value Units Date High Low HCGQT No results within date range. UHCG No results within date range. HCG, BODY* No results within date range. Lab Value Units Date High Low ABORHD No results within date range. ABSCREEN No results within date range. No results found for: HBA1C No results found for this or any previous visit (from the past 8760 hour(s)). No results found for this or any previous visit (from the past 33093 hour(s)). Assessment Patient has the following medical conditions which may affect kelvin-operative course: Class 3 severe obesity without serious comorbidity in adult (HCC) BMI 40.37 Preop testing medical condition which may affect the kelvin-operative course were addressed in the visit today Davison Activity Status Index: METS: Climb a flight of stairs or walk up a hill (5.50 METs) DASI Score: 5.5 Patient denies any chest pain or undue shortness of breath with the above physical activity. ARISCAT Score: Age: <=50 Preoperative SpO2: >=96% Respiratory infection in the last month: No Preoperative anemia: No Surgical incision: peripheral Duration of surgery: >3 hrs Emergency procedure: No ARISCAT Score: 23 ANESTHESIA FINDINGS: Intubation History: No history of difficult intubation. No abnormal airway history Significant Anesthesia Considerations: none Airway History: No history of difficult airway No abnormal airway history I - PHYSICAL EVALUATION AIRWAY Patient intubated: No. DENTAL Normal dental observations. Dental findings: teeth intact. II - ANESTHESIA PLAN Anesthetic Plan: general Beta [place] Monitoring Plan Post Procedure Analgesic Plan Prepared for Surgery: CONSULTS: The following consults have been initiated at this time: primary care/internal medicine. Planned Anesthetic: general The Following Tests/Procedures Have Been Initiated: Orders Placed This Encounter Confirm Blood Type Order Comments: Draw separate from TSCR Standing Status: Future Standing Expiration Date: 02/25/2023 Order Specific Question: Did Blood Bank direct you to place this order: Answer: No - Presurgical Workflow multivit with min-folic acid (MEN'S MULTIVITAMIN GUMMIES) 200 mcg chew Sig: Take by mouth once daily. Implantable Devices: None Assessment/Plan PLAN Planned Procedure: Procedure(s): C3-6 posterior cervical decompression and fusion (N/A) ARTHRODESIS CERVICAL BELOW C2, 2ND CERVICAL LEVEL (N/A) ARTHRODESIS CERVICAL BELOW C2, 3RD CERVICAL LEVEL (N/A) DECOMPRESSION LAMINECTOMY CERVICAL, FACETECTOMY AND FORAMINOTOMY, SPINAL OR LATERAL RECESS STENOSIS LEVEL 1 (N/A) DECOMPRESSION LAMINECTOMY 1ST ADD L CERVICAL SEGMENT (N/A) DECOMPRESSION LAMINECTOMY 2ND ADD L CERVICAL SEGMENT (N/A) POSTERIOR SEGMENTAL INSTRUMENTATION FOLLOWING CERVICAL FUSION 3-6 LEVELS (N/A) ALLOGRAFT FOR SPINE SURGERY MORSELIZED (N/A) AUTOGRAFT FOR SPINE SURGERY ONLY, OBTAINED FROM SAME INCISION (N/A) The Following Tests/Procedures Have Been Initiated: EKG, CXR, CBC, CMP, Pt, aPTT, T&S ordered per surgeon Instructions Given to Patient: Instructions located in the after visit summary. Patient given verbal and written preop instructions and voices comprehension and compliance. HIBICLENS WASH AND INSTRUCTIONS GIVEN TO PATIENT. I spent a total of 40 minutes on the date of the service which included preparing to see the patient, [id number] patient care, completing clinical documentation, obtaining and/or reviewing separately obtained history, and counseling and educating the patient/family/caregiver. SIGNATURE: Ivana Bowie APRN.CNP PATIENT NAME: Sahil Young DATE: December 26, 2022 TIME: 1:22 PM PAGER/CONTACT #: documented in this encounter [facility] 12-26-2022 Instructions Ivana Bowie APRN.CNP - 12/26/2022 7:34 AM EDT PATIENT PREOPERATIVE INSTRUCTIONS Court Hairston MD, * has scheduled you for your procedure at this surgery center: [facility]: [phone], [address] [address] Please read below carefully for your personalized instructions. Surgery: DATE: 01/09/23 (call to confirm 6 am arrival time) - To obtain your ARRIVAL TIME for surgery, call your physician's office the day before your surgery. - If your surgery is scheduled for Monday, call the Monday before. Your surgeon s night warehouse manager will tell you what time to call the office. Please be aware that emergency situations arise, which may delay or change your surgical time. If this happens, we will notify you as soon as possible and regret any inconvenience. Dietary Restrictions: - No solid food after midnight. - You may have 12 ounces of clear liquids (water, clear juices such as apple juice or gatorade, carbonated beverages, clear tea, black coffee, jello) until 2 hours before scheduled arrival at facility. Do not eat or drink anything, including water and coffee, after that time on the morning of your surgery. This is important because if you do, your surgery may have to be cancelled - Do not drink any alcohol after midnight the night before your surgery. Medications: Approved medications can be taken the morning of surgery with a sip of water. AVS was given to patient and specific instructions for each medication reviewed. See medication list. Please continue to take blood pressure medications including day of surgery. Approved medications to take the morning of surgery with a sip of water: blood pressure, heart, thyroid, psych, seizure, and pain medications excluding NSAIDS. Use inhalers as prescribed. Please bring inhalers. Please follow up with the provider that manages your diabetes on how to prepare you for surgery. - Any oral diabetic medications should be held day of surgery. - If you are taking insulin please discuss with prescribing physician for pre op instructions. If you are taking the following medications for Type 2 diabetes: Canagliflozin (INVOKANA), dapagliflozin (FARXIGA), and empagliflozin (JARDIANCE) should each be discontinued at least 3 days before scheduled surgery. Ertugliflozin (STEGLATRO) should be discontinued at least four days before scheduled surgery. If you start any new medications after today's visit, please contact the surgeon's office. Blood Thinning Medications: - Stop NSAIDS (Ibuprofen, Advil, Aleve, Motrin, Celebrex, Mobic, etc.) 7 days before surgery, as directed by your surgeon. - If you take any of the following blood thinners, please contact your surgeon and the physician who prescribes it for you in order to get perioperative instructions as soon as possible Blood thinners: Aspirin,Coumadin, Plavix, Eliquis, Pradaxa, Xarelto, Lovenox, Brilinta, Effient, Savaysa, Arixtra etc. - Stop Vitamin E, fish oil, Ginko, [place]'s Wort, flax seed oil, multivitamins, CBD oil, marijuana and other over the counter herbals and dietary supplements 7 days before surgery. - This would not apply to cancer patients who are prescribed Marinol or any other prescription form of marijuana or CBD. Pain Medications: - You may take Tylenol (Acetaminophen) or any of your current prescribed pain medications that do not contain aspirin or NSAIDS as needed. If you take any medications for erectile dysfunction-Cialis (Tadalafil), Levitra, Staxyn (Vardenafil) or Viagra (Sildenafil), please do not take these for 48 hours before surgery. If you start any new medications after today's visit, please contact the surgeon's office. Important Reminders: - If you have a stimulator, implant or pump that requires a remote please bring the remote with you day of surgery - If you use CPAP/BIPAP, bring the machine with you to the surgery center. - If you are prescribed inhalers for breathing, continue using them AND bring them to the surgery center. - Candy, mints, gum and tobacco products are NOT permitted the morning of surgery. - Hearing aids, dentures and glasses may be worn the morning of surgery. - NO jewelry, body piercings, makeup, hairpins or contacts are to be worn the day of surgery. - NO keys, wallet, watches, or purses - NO lotion, creams, powders or deodorants on the skin the day of surgery - Wear loose, comfortable clothing that will accommodate bandages. - Your length of stay will be determined by your surgeon - You will need to have someone else (Family or friend) drive you home once discharged from the hospital. You are not allowed to drive yourself home after surgery. - YOU MUST HAVE A RESPONSIBLE DIE ATTACHER TAKE YOU HOME. A MUSIC MANAGER, CAB OR UBER DIE ATTACHER CANNOT BE MADE A RESPONSIBLE DIE ATTACHER. - We recommend that a responsible person stays with you overnight to take care of you. - You cannot stay in a hotel alone after outpatient surgery. You will not be permitted to have your surgery, if you do not have someone to take care of you. --IF you are having a TOTAL KNEE ,HIP REPLACEMENT OR ORTHOPEDIC SURGERY : -Ambulatory surgery center [facility]- orthopedic patients needing a walker should bring the walker into the building day of surgery. -[facility] should bring their walker into the building. -[facility] listed as to be admitted should leave their walkers in the car or with a family member. Surgical scrub given day of PST. Oral hygiene and a shower or bath is required the evening before or the morning of surgery. Use the Hibiclens body wash supplied to you along with the instruction. It is recommended patients have a 72 hour period between getting a vaccine and date of surgery. If you develop symptoms such as a fever, cold, or flu, or have other changes to your health within TWO DAYS of scheduled surgery or the morning of surgery, please contact the surgery center above. Personal Belongings: - Leave ALL valuables and money at home or with family members. - You will need a form of ID and insurance card to check in the morning of surgery. - You will have to wear a hospital gown during your stay but if you wish to bring undergarments for after surgery you may. Visitors are required to wear masks while inside any [facility] facility. Any individual who is sick should not visit. Visitors to patients with COVID-19 must follow these guidelines, which include wearing a mask, eye protection, gown and gloves. Current policy will allow for up to 2 visitors on the day of surgery/procedure. ASC Pre surgery - One visitor in Pre-surgery due to limited space. ASC PACU - No visitors in PACU unless it's a minor due to limited space. If you already have an Advance Directive, please fax a copy to [phone] or email to for it to be added to your chart. If you do not have an Advance Directive, you can find the appropriate form and more information at [email or web address]. We recommend that you complete the Advance Directive form found on the website and bring it with you the day of your surgery. It can be witnessed and scanned into your chart that day. Ivana Bowie APRN.ALEJANDRO documented in this encounter [facility] 12-02-2022 History of Presen t illness Narrative NEUROSURGERY FOLLOW UP OFFICE NOTE Court Hairston MD, PhD Date of visit: December 02, 2022 Patient Name: Mr.Lonnie Shai Young Date of : 1975 Current Age: [age] year old Sex: male MRN/E# [id number] Last Office Visit: 10/21/2022 Chief Complaint: Patient presents with: Follow Up; cervical myelopathy SUBJECTIVE: HPI The patient was last evaluated in the office on 10/21/2022 with complaints of cervical pain. He noted in April 2022 he was helping build a deck and his symptoms developed shortly after. He noted numbness and tingling into the lateral aspect of his right upper extremity to his elbow. He noted it wrapped to the posterior aspect of his right forearm. He noted cervical pain with laying flat. He noted difficulties with dexterity and dropping items. He noted weakness to his right arm. It was noted that he has cervical myelopathy. He needed to allow his carpal tunnel surgery to heal before discussion of cervical surgery. He was to obtain cervical xray's and follow up in 6 weeks, prompting his visit today. Today he states that he has continued with posterior neck pain. The pain radiates to the lateral aspect of his RUE and travels down his posterior forearm with associated paresthesias. He reports issues with dexterity and dropping items with his right hand. He feels that he is weaker in his right arm. He denies issues with balance, falls, and bowel and bladder incontinence. He states that his symptoms continue to get progressively worse. He presents for imaging review, evaluation and plan of care. 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: Mobic [place] Flexeril Tylenol PREVIOUS SURGERY: SURGERY #1: Right CTR 09/30/2022 PAIN EVALUATION 12/02/2022 1325 Pain Level: 7 Description: Aching Duration Units: Months Frequency: Continuous Intervention/Comfort measure: Medication PAST MEDICAL HISTORY Diagnosis Date Carpal tunnel syndrome 02/28/2006 Internal hemorrhoids without mention of complication Lateral epicondylitis of elbow 02/28/2006 Medial epicondylitis of elbow 02/28/2006 Sprain and strain of other specified sites of elbow and forearm PAST SURGICAL HISTORY Procedure Laterality Date ARTHROSCOPY KNEE DIAGNOSTIC W/WO SYNOVIAL BX SPX age 17 Arthroscopy, knee Left FAMILY HISTORY Problem Relation Age of Onset Heart Father CAD None Mother Diabetes Father None Brother ALLERGIES Allergen Reactions Penicillins As a child- doesn;t remember reaction No current outpatient medications on file. No current facility-administered medications for this visit. REVIEW OF SYSTEMS Review of Systems Constitutional: Negative for chills, diaphoresis and fever. HENT: Negative for sinus pressure, sinus pain and trouble swallowing. Eyes: Negative for pain, redness and visual disturbance. Respiratory: Negative for cough, shortness of breath and wheezing. Cardiovascular: Negative for chest pain, palpitations and leg swelling. Gastrointestinal: Negative for constipation, diarrhea and nausea. Endocrine: Negative for cold intolerance and heat intolerance. Genitourinary: Negative for difficulty urinating, frequency and urgency. Musculoskeletal: Positive for neck pain. Negative for back pain and gait problem. Skin: Negative for color change, pallor and rash. Allergic/Immunologic: Negative for environmental allergies, food allergies and immunocompromised state. Neurological: Positive for numbness. Negative for weakness and headaches. Hematological: Does not bruise/bleed easily. Psychiatric/Behavioral: Negative for agitation, behavioral problems and confusion. OBJECTIVE: BP 149/82 Pulse 87 Temp (Src) 98.8 (Temporal) Resp 18 Ht 6' 1 (1.85m) Wt 304 lb (137.9kg) SpO2 98% BMI 40.12 kg/(m^2). Physical Exam On my physical examination today I did not find pertinent differences from my last assessment. I reconfirmed the presence of marked upper motor neuron findings. Data Review IMAGING STUDIES: XR Cervical 11/01/2022: IMPRESSION: Cervical spine mild degenerative changes. Assessment and Plan: Sahil feels that his neurological function has declined since I last saw him. The cervical spine x-rays that we obtained demonstrate some loss of the normal cervical lordosis and for that reason I favor a posterior cervical decompression with fusion. I reviewed again with Sahil the pros and cons of anterior posterior approaches. I talked with the risk benefits alternatives to surgery for cervical myelopathy and really indicated that there is no substitute for her surgical management with the exception of possibly physical therapy. I discussed with him again recent important studies that have changed her practice that highlight the improved outcomes we see when patients have surgery shortly after they are diagnosed. With respect to surgical management I discussed risks which include the risk of bleeding infection and damage to local structures. I talked about the risk of a postoperative hematoma which can lead to spinal cord injury and can require emergent surgery. I talked about how we give preoperative antibiotics to reduce the risk of infection but continues to occur with approximate 4% rate. I also discussed the risk of damage to nearby structures. The most significant risk which I discussed with him is the risk of injuring the spinal cord perhaps with a drill. This could lead to permanent and complete loss of arm leg bowel bladder and sexual function. At the level of the surgery there is a very strong risk that he would be permanently ventilator dependent. Other risks include a CSF fistula which could require additional surgery and extend his hospital stay. I talked about the risk of wrong level surgery and of screw misplacement or hardware failure. I talked with the risk of vertebral artery injury and I talked about the risk of a delayed C5 palsy. We also discussed the risk of adjacent segment degeneration which is a particular important risk given along his relatively young age. I quoted a 16% risk over the next 10 years of requiring additional surgery. Sahil expressed a desire to move forward with surgery. To reflect the completion of our informed sent process Sahil signed informed consent form. We will work to find or time for Sahil's case within the next month or so. Attestation: The following portions of the patient's history were reviewed, confirmed, and updated as necessary: allergies, current medications, past family history, past medical history, past social history, past surgical history, problem list, HPI, and ROS obtained by others. Some elements may be copied from a previous office note and have been reviewed/updated where appropriate. All portions reflect current medical decision making from today. The clinical and radiographic findings as well as the risks, benefits and alternatives of treatment have been reviewed in detail with the patient. The patient was advised to call the office if symptoms worsen or new symptoms develop. The patient expressed understanding and is in agreement with plan. Court Hairston MD, PhD This note was partially generated using Repeatit voice recognition system, and there may be some incorrect words, spellings, and punctuation that were not noted in checking the note before saving. documented in this encounter [facility] 11-01-2022 Note HNO ID: [id number] Author: RT Ama(R) Service: ? Author Type: Liquid Fertilizer Servicer Type: Progress Notes Filed: 11/01/2022 3:40 PM Note Text: Radiology Service Progress Note PATIENT NAME: Sahil Young DATE OF SERVICE: November 01, 2022 TIME: 3:25 PM PATIENT IDENTITY VERIFICATION COMPLETED USING TWO (2) IDENTIFIERS: Name and Date of confirmed by patient verbally. FALL SCREENING: Has the patient had 2 falls in the last year or 1 fall with injury or currently using an Ambulatory Assistive Device (Walker, Cane, Wheelchair, Crutches, etc.)? No PATIENT GENDER DATA: Male PATIENT RELEVANT IMPLANT DATA REVIEWED: Yes RADIOLOGY DEPARTMENT: General X-ray: Exam(s) Completed: Spine X-Ray(s): Cervical AP / LAT / FLEX-EXT PERIPHERAL IV DATA: Not applicable SIGNED BY: RT Ama(R) November 01, 2022 3:25 PM [facility] 10-18-2022 History of Presen t illness Narrative Images from the original note were not included. NEUROSURGERY CONSULT NOTE Court Hairtson MD, PhD Date of visit: October 21, 2022 Patient Name: Mr.Lonnie Shai Young Date of : 1975 Current Age: [age] year old Sex: male MRN/E# [id number] Chief Complaint: Patient presents with: New Patient Neck Pain; RUE numbness/tinging HISTORY OF PRESENT ILLNESS : The patient is a 47 year old, right handed male with a past medical history of carpal tunnel and otitis media who is referred by Dr. Jovel for neurosurgical evaluation. The patient noted an onset of acute cervical pain and paresthesia in his right upper extremity that had been present for 3-4 months. He noted the pain and paresthesia was constant in the right dorsal and radial forearm and thumb, he had been wearing a brace and preforming home exercises without relief. He underwent an EMG of the right upper extremity from 08/15/2022 that noted moderate to severe right carpal tunnel syndrome as well as C7 radiculopathy. He is following with Dr. Abrams for his carpal tunnel. Today he states that he has continued with this pain. He states that in April 2022, he helped build a deck. His symptoms started shortly after this. He endorses numbness and tingling in the lateral aspect of his right upper extremity to his elbow. It then wraps to the posterior aspect of his right forearm. The patient also endorses some neck pain when he lays down to sleep at night. He reports issues with dexterity and dropping items. He feels that he is weaker in his right arm. He feels off balance occasionally but denies recent falls. He states that his symptoms are worse when resting and improve with activity. The patient underwent a right CTR about 2 weeks ago with some improvement. He denies tingling or pain in his right hand. He denies issues with incontinence. The patient has taken Tylenol and Meloxicam for his symptoms, which provide minor relief. He presents today for image review, evaluation, and plan of care. 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 PAST MEDICAL HISTORY Diagnosis Date Carpal tunnel syndrome 02/28/2006 Internal hemorrhoids without mention of complication Lateral epicondylitis of elbow 02/28/2006 Medial epicondylitis of elbow 02/28/2006 Sprain and strain of other specified sites of elbow and forearm PAST SURGICAL HISTORY Procedure Laterality Date ARTHROSCOPY KNEE DIAGNOSTIC W/WO SYNOVIAL BX SPX age 17 Arthroscopy, knee Left FAMILY HISTORY Problem Relation Age of Onset Heart Father CAD None Mother Diabetes Father None Brother ALLERGIES Allergen Reactions Penicillins As a child- doesn;t remember reaction No current outpatient medications on file. No current facility-administered medications for this visit. SOCIAL HISTORY: . Accompanied today by his . Non-smoker. REVIEW OF SYSTEMS Review of Systems Constitutional: Negative for chills, diaphoresis and fever. HENT: Negative for sinus pressure, sinus pain and trouble swallowing. Eyes: Negative for pain, redness and visual disturbance. Respiratory: Negative for cough, shortness of breath and wheezing. Cardiovascular: Negative for chest pain, palpitations and leg swelling. Gastrointestinal: Negative for constipation, diarrhea and nausea. Endocrine: Negative for cold intolerance and heat intolerance. Genitourinary: Negative for difficulty urinating, frequency and urgency. Musculoskeletal: Positive for neck pain. Negative for back pain and gait problem. Skin: Negative for color change, pallor and rash. Allergic/Immunologic: Negative for environmental allergies, food allergies and immunocompromised state. Neurological: Positive for weakness and numbness. Negative for headaches. Hematological: Does not bruise/bleed easily. Psychiatric/Behavioral: Negative for agitation, behavioral problems and confusion. OBJECTIVE: BP 127/76 Pulse 67 Temp (Src) 98.2 (Temporal) SpO2 97% PHYSICAL EXAM: General Examination BP 127/76 Pulse 67 Temp 36.8 C (98.2 F) (Temporal) Resp 18 SpO2 97% General Exam Neurological Exam Mental Status Sahil had a positive Spurling sign with his head tilted to the left. He reported this caused numbness of his entire right arm. He had a normal cervical range of motion except mild limitation of extension. Motor Examination and Coordination Maxwell has a right palmar incision from his recently performed carpal tunnel release. Apparently this was completed just 2 weeks ago. Neuromuscular Examination Extremity Muscles Upper Extremity Right Left Shoulder flexion 5 5 Elbow flexion 5 5 Elbow extension 5 5 Wrist flexion 5 5 Wrist extension 5 5 Finger flexion/traffic enumerator 5 5 Lower Extremity Right Left Hip flexion 5 5 Knee flexion 5 5 Knee extension 5 5 Ankle plantarflexion 5 5 Ankle dorsiflexion 5 5 Reflexes Deep tendon reflexes graded by [facility] Deep Tendon Reflexes Right Left Biceps 4 4 Triceps 3 4 Brachioradialis 4 4 Patellar 4 4 Achilles 3+ 3+ Sahil had a positive Tennille sign bilaterally along with pathological reflex spread. He did not have ankle clonus. Data Review IMAGING STUDIES: MRI cervical performed on 09/28/2022. EMG RUE performed on 08/15/2022. ASSESSMENT: Sahil has cervical myelopathy. Although he is a surgical candidate I think we need to allow his carpal tunnel surgery to heal first. I will need cervical x-rays to decide on whether or not to recommend a fusion. I believe a C3-6 cervical decompression would likely be sufficient. 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 PLAN: I will reassess Sahil in 6w time with cervical AP, lateral and flex/ex films performed at that time. I encouraged him to save up his questions about surgery. This note was partially generated using Repeatit voice recognition system, and there may be some incorrect words, spellings, and punctuation that were not noted in checking the note before saving. documented in this encounter [facility] Evaluation note No assessment inform ation available [facility] Work Phone: Evaluation note Diagnosis Cervical myelopathy (HCC)- Primary Cervical spondylosis with myelopathy [facility] Diagnosis Cervical myelopathy (HCC)- Primary Cervical spondylosis with myelopathy [facility] Diagnosis Cervical myelopathy (HCC)- Primary Cervical spondylosis with myelopathy [facility] Diagnosis Preop testing- Primary Preoperative examination, unspecified Class 3 severe obesity without serious comorbidity with body mass index (BMI) of 40.0 to 44.9 in adult, unspecified obesity type (HCC) Cervical myelopathy (HCC) [G95.9 (ICD-10-CM)] Cervical spondylosis with myelopathy Cervical myelopathy (HCC) Cervical spondylosis with myelopathy [facility] Diagnosis Cervical myelopathy (HCC) Cervical spondylosis with myelopathy Cervical myelopathy (HCC) Cervical spondylosis with myelopathy [facility] Diagnosis Staph aureus infection- Primary Methicillin susceptible Staphylococcus aureus in conditions classified elsewhere and of unspecified site Cervical myelopathy (HCC) Cervical spondylosis with myelopathy documented in this encounter [facility] note* Diagnosis S/P cervical spinal fusion- Primary Arthrodesis status [facility] Diagnosis S/P cervical spinal fusion- Primary Arthrodesis status documented in this encounter [facility] note* Diagnosis S/P cervical spinal fusion- Primary Arthrodesis status [facility] Diagnosis S/P cervical spinal fusion- Primary Arthrodesis status [facility] Diagnosis S/P cervical spinal fusion- Primary Arthrodesis status [facility]* Diagnosis Cervical myelopathy (HCC) Cervical spondylosis with myelopathy [facility]* Diagnosis Preop testing- Primary Preoperative examination, unspecified Class 3 severe obesity without serious comorbidity with body mass index (BMI) of 40.0 to 44.9 in adult, unspecified obesity type (HCC) Cervical myelopathy (HCC) [G95.9 (ICD-10-CM)] Cervical spondylosis with myelopathy S/P cervical spinal fusion- Primary Arthrodesis status documented in this encounter [facility] for referral (narrative)* Diagnostic Procedure Only (Routine) - Pending Review Specialty Diagnoses / Procedures Referred By Contac t Referred To Contact XR IMAGING Diagnoses Cervical myelopathy (HCC) Procedures XR CERV OTHER 4V AP/LAT/FLX/EXT RADEX SPINE CERVICAL [address] Hairston MD, PhD [address] [place] [address] Xr Imaging Referral ID Status Reason Start Date Expiration Date Visits Requested Visits Authorized [id number] Pending Review Auto-Generat ed Referral 10/21/2022 11/20/2023 1 1 [facility] for referral (narrative)* Diagnostic Procedure Only (Routine) - Closed Specialty Diagnoses / Procedures Referred By Contac t Referred To Contact XR IMAGING Diagnoses S/P cervical spinal fusion Procedures XR CERV GENERAL 2V AP/LAT RADEX SPINE CERVICAL [address] Hairston MD, PhD [address] [place] [address] Xr Imaging Referral ID Status Reason Start Date Expiration Date V isits Requested Visits Authorized [id number] Closed Auto-Generate d Referral 01/12/2023 02/09/2024 1 1 [facility] for referral (narrative)* Diagnostic Procedure Only (Routine) - Closed Specialty Diagnoses / Procedures Referred By Contac t Referred To Contact XR IMAGING Diagnoses Cervical myelopathy (HCC) Procedures XR CERV OTHER 4V AP/LAT/FLX/EXT RADEX SPINE CERVICAL [address] Hairston MD, PhD [address] [place] [address] [place] [id number] Referral ID Status Reason Start Date Expiration Date V isits Requested Visits Authorized [id number] Closed Auto-Generate d Referral 10/21/2022 11/20/2023 1 1 [facility]No reason for referral [facility]: Reason for visit Narrative* Diagnostic Procedure Only (Routine) - Closed Specialty Diagnoses / Procedures Referred By Contac t Referred To Contact XR IMAGING Diagnoses Cervical myelopathy (HCC) Procedures XR CERV OTHER 4V AP/LAT/FLX/EXT RADEX SPINE CERVICAL [address] Hairston MD, PhD [address] [facility] [place] [address] [place] [address] Referral ID Status Reason Start Date Expiration Date V isits Requested Visits Authorized [id number] Closed Auto-Generate d Referral 10/21/2022 11/20/2023 1 1 [facility] Chief Complaint and Reason for Visit Chief Complaint Other cervical disc degeneration at C5-C6 level PREOP Advance Directives Advance Directive Response Recorded Date/ Time Living Will No May 10 2 8:21am Power of Shoe Dresser No May 10 022 8:21am Summary Purpose Family History Arthritis Status:Active Comments:Mother. Cerebrovascular Accident Status:Active Comment s:Father. Coronary Artery Disease Status:Active Comments :Father. Diabetes Mellitus Type II Status:Active Commen ts:Father. Hypertension Status:Active Comments:Mother. Kidney Disease Status:Active Comments:First D egree Relatives. maternal side No Known Family History Onset: Status:Inactive Arthritis Status:Active Comments:Mother. Cerebrovascular Accident Status:Active Comment s:Father. Coronary Artery Disease Status:Active Comments :Father. Diabetes Mellitus Type II Status:Active Commen ts:Father. Hypertension Status:Active Comments:Mother. Kidney Disease Status:Active Comments:First D egree Relatives. maternal side No Known Family History Onset: 8 Status:Inactive Arthritis Status:Active Comments:Mother. Cerebrovascular Accident Status:Active Comment s:Father. Coronary Artery Disease Status:Active Comments :Father. Diabetes Mellitus Type II Status:Active Commen ts:Father. Hypertension Status:Active Comments:Mother. Kidney Disease Status:Active Comments:First D egree Relatives. maternal side No Known Family History Onset: 8 Status:Inactive Arthritis Status:Active Comments:Mother. Cerebrovascular Accident Status:Active Comment s:Father. Coronary Artery Disease Status:Active Comments :Father. Diabetes Mellitus Type II Status:Active Commen ts:Father. Hypertension Status:Active Comments:Mother. Kidney Disease Status:Active Comments:First D egree Relatives. maternal side No Known Family History Onset: Status:Inactive Arthritis Status:Active Comments:Mother. Cerebrovascular Accident Status:Active Comment s:Father. Coronary Artery Disease Status:Active Comments :Father. Diabetes Mellitus Type II Status:Active Commen ts:Father. Hypertension Status:Active Comments:Mother. Kidney Disease Status:Active Comments:First D egree Relatives. maternal side No Known Family History Onset: 8 Status:Inactive Arthritis Status:Active Comments:Mother. Cerebrovascular Accident Status:Active Comment s:Father. Coronary Artery Disease Status:Active Comments :Father. Diabetes Mellitus Type II Status:Active Commen ts:Father. Hypertension Status:Active Comments:Mother. Kidney Disease Status:Active Comments:First D egree Relatives. maternal side No Known Family History Onset: Status:Inactive Arthritis Status:Active Comments:Mother. Cerebrovascular Accident Status:Active Comment s:Father. Coronary Artery Disease Status:Active Comments :Father. Diabetes Mellitus Type II Status:Active Commen ts:Father. Hypertension Status:Active Comments:Mother. Kidney Disease Status:Active Comments:First D egree Relatives. maternal side No Known Family History Onset: Status:Inactive Arthritis Status:Active Comments:Mother. Cerebrovascular Accident Status:Active Comment s:Father. Coronary Artery Disease Status:Active Comments :Father. Diabetes Mellitus Type II Status:Active Commen ts:Father. Hypertension Status:Active Comments:Mother. Kidney Disease Status:Active Comments:First D egree Relatives. maternal side No Known Family History Onset: Status:Inactive Arthritis Status:Active Comments:Mother. Cerebrovascular Accident Status:Active Comment s:Father. Coronary Artery Disease Status:Active Comments :Father. Diabetes Mellitus Type II Status:Active Commen ts:Father. Hypertension Status:Active Comments:Mother. Kidney Disease Status:Active Comments:First D egree Relatives. maternal side No Known Family History Onset: Status:Inactive Arthritis Status:Active Comments:Mother. Cerebrovascular Accident Status:Active Comment s:Father. Coronary Artery Disease Status:Active Comments :Father. Diabetes Mellitus Type II Status:Active Commen ts:Father. Hypertension Status:Active Comments:Mother. Kidney Disease Status:Active Comments:First D egree Relatives. maternal side No Known Family History Onset: Status:Inactive Arthritis Status:Active Comments:Mother. Cerebrovascular Accident Status:Active Comment s:Father. Coronary Artery Disease Status:Active Comments :Father. Diabetes Mellitus Type II Status:Active Commen ts:Father. Hypertension Status:Active Comments:Mother. Kidney Disease Status:Active Comments:First D egree Relatives. maternal side No Known Family History Onset: 8 Status:Inactive Arthritis Status:Active Comments:Mother. Cerebrovascular Accident Status:Active Comment s:Father. Coronary Artery Disease Status:Active Comments :Father. Diabetes Mellitus Type II Status:Active Commen ts:Father. Hypertension Status:Active Comments:Mother. Kidney Disease Status:Active Comments:First D egree Relatives. maternal side No Known Family History Onset: Status:Inactive Arthritis Status:Active Comments:Mother. Cerebrovascular Accident Status:Active Comment s:Father. Coronary Artery Disease Status:Active Comments :Father. Diabetes Mellitus Type II Status:Active Commen ts:Father. Hypertension Status:Active Comments:Mother. Kidney Disease Status:Active Comments:First D egree Relatives. maternal side No Known Family History Onset: Status:Inactive Arthritis Status:Active Comments:Mother. Cerebrovascular Accident Status:Active Comment s:Father. Coronary Artery Disease Status:Active Comments :Father. Diabetes Mellitus Type II Status:Active Commen ts:Father. Hypertension Status:Active Comments:Mother. Kidney Disease Status:Active Comments:First D egree Relatives. maternal side No Known Family History Onset: Status:Inactive Arthritis Status:Active Comments:Mother. Cerebrovascular Accident Status:Active Comment s:Father. Coronary Artery Disease Status:Active Comments :Father. Diabetes Mellitus Type II Status:Active Commen ts:Father. Hypertension Status:Active Comments:Mother. Kidney Disease Status:Active Comments:First D egree Relatives. maternal side No Known Family History Onset: Status:Inactive Arthritis Status:Active Comments:Mother. Cerebrovascular Accident Status:Active Comment s:Father. Coronary Artery Disease Status:Active Comments :Father. Diabetes Mellitus Type II Status:Active Commen ts:Father. Hypertension Status:Active Comments:Mother. Kidney Disease Status:Active Comments:First D egree Relatives. maternal side No Known Family History Onset: 8 Status:Inactive Arthritis Status:Active Comments:Mother. Cerebrovascular Accident Status:Active Comment s:Father. Coronary Artery Disease Status:Active Comments :Father. Diabetes Mellitus Type II Status:Active Commen ts:Father. Hypertension Status:Active Comments:Mother. Kidney Disease Status:Active Comments:First D egree Relatives. maternal side No Known Family History Onset: 8 Status:Inactive Arthritis Status:Active Comments:Mother. Cerebrovascular Accident Status:Active Comment s:Father. Coronary Artery Disease Status:Active Comments :Father. Diabetes Mellitus Type II Status:Active Commen ts:Father. Hypertension Status:Active Comments:Mother. Kidney Disease Status:Active Comments:First D egree Relatives. maternal side No Known Family History Onset: Status:Inactive Arthritis Status:Active Comments:Mother. Cerebrovascular Accident Status:Active Comment s:Father. Coronary Artery Disease Status:Active Comments :Father. Diabetes Mellitus Type II Status:Active Commen ts:Father. Hypertension Status:Active Comments:Mother. Kidney Disease Status:Active Comments:First D egree Relatives. maternal side No Known Family History Onset: 8 Status:Inactive Arthritis Status:Active Comments:Mother. Cerebrovascular Accident Status:Active Comment s:Father. Coronary Artery Disease Status:Active Comments :Father. Diabetes Mellitus Type II Status:Active Commen ts:Father. Hypertension Status:Active Comments:Mother. Kidney Disease Status:Active Comments:First D egree Relatives. maternal side No Known Family History Onset: Status:Inactive Arthritis Status:Active Comments:Mother. Cerebrovascular Accident Status:Active Comment s:Father. Coronary Artery Disease Status:Active Comments :Father. Diabetes Mellitus Type II Status:Active Commen ts:Father. Hypertension Status:Active Comments:Mother. Kidney Disease Status:Active Comments:First D egree Relatives. maternal side No Known Family History Onset: Status:Inactive Arthritis Status:Active Comments:Mother. Cerebrovascular Accident Status:Active Comment s:Father. Coronary Artery Disease Status:Active Comments :Father. Diabetes Mellitus Type II Status:Active Commen ts:Father. Hypertension Status:Active Comments:Mother. Kidney Disease Status:Active Comments:First D egree Relatives. maternal side No Known Family History Onset: 8 Status:Inactive Arthritis Status:Active Comments:Mother. Cerebrovascular Accident Status:Active Comment s:Father. Coronary Artery Disease Status:Active Comments :Father. Diabetes Mellitus Type II Status:Active Commen ts:Father. Hypertension Status:Active Comments:Mother. Kidney Disease Status:Active Comments:First D egree Relatives. maternal side No Known Family History Onset: Status:Inactive Arthritis Status:Active Comments:Mother. Cerebrovascular Accident Status:Active Comment s:Father. Coronary Artery Disease Status:Active Comments :Father. Diabetes Mellitus Type II Status:Active Commen ts:Father. Hypertension Status:Active Comments:Mother. Kidney Disease Status:Active Comments:First D egree Relatives. maternal side No Known Family History Onset: Status:Inactive Arthritis Status:Active Comments:Mother. Cerebrovascular Accident Status:Active Comment s:Father. Coronary Artery Disease Status:Active Comments :Father. Diabetes Mellitus Type II Status:Active Commen ts:Father. Hypertension Status:Active Comments:Mother. Kidney Disease Status:Active Comments:First D egree Relatives. maternal side No Known Family History Onset: Status:Inactive Arthritis Status:Active Comments:Mother. Cerebrovascular Accident Status:Active Comment s:Father. Coronary Artery Disease Status:Active Comments :Father. Diabetes Mellitus Type II Status:Active Commen ts:Father. Hypertension Status:Active Comments:Mother. Kidney Disease Status:Active Comments:First D egree Relatives. maternal side No Known Family History Onset: Status:Inactive Arthritis Status:Active Comments:Mother. Cerebrovascular Accident Status:Active Comment s:Father. Coronary Artery Disease Status:Active Comments :Father. Diabetes Mellitus Type II Status:Active Commen ts:Father. Hypertension Status:Active Comments:Mother. Kidney Disease Status:Active Comments:First D egree Relatives. maternal side No Known Family History Onset: Status:Inactive Arthritis Status:Active Comments:Mother. Cerebrovascular Accident Status:Active Comment s:Father. Coronary Artery Disease Status:Active Comments :Father. Diabetes Mellitus Type II Status:Active Commen ts:Father. Hypertension Status:Active Comments:Mother. Kidney Disease Status:Active Comments:First D egree Relatives. maternal side No Known Family History Onset: Status:Inactive Arthritis Status:Active Comments:Mother. Cerebrovascular Accident Status:Active Comment s:Father. Coronary Artery Disease Status:Active Comments :Father. Diabetes Mellitus Type II Status:Active Commen ts:Father. Hypertension Status:Active Comments:Mother. Kidney Disease Status:Active Comments:First D egree Relatives. maternal side No Known Family History Onset: Status:Inactive Arthritis Status:Active Comments:Mother. Cerebrovascular Accident Status:Active Comment s:Father. Coronary Artery Disease Status:Active Comments :Father. Diabetes Mellitus Type II Status:Active Commen ts:Father. Hypertension Status:Active Comments:Mother. Kidney Disease Status:Active Comments:First D egree Relatives. maternal side No Known Family History Onset: 8 Status:Inactive Arthritis Status:Active Comments:Mother. Cerebrovascular Accident Status:Active Comment s:Father. Coronary Artery Disease Status:Active Comments :Father. Diabetes Mellitus Type II Status:Active Commen ts:Father. Hypertension Status:Active Comments:Mother. Kidney Disease Status:Active Comments:First D egree Relatives. maternal side No Known Family History Onset: Status:Inactive Arthritis Status:Active Comments:Mother. Cerebrovascular Accident Status:Active Comment s:Father. Coronary Artery Disease Status:Active Comments :Father. Diabetes Mellitus Type II Status:Active Commen ts:Father. Hypertension Status:Active Comments:Mother. Kidney Disease Status:Active Comments:First D egree Relatives. maternal side No Known Family History Onset: Status:Inactive Arthritis Status:Active Comments:Mother. Cerebrovascular Accident Status:Active Comment s:Father. Coronary Artery Disease Status:Active Comments :Father. Diabetes Mellitus Type II Status:Active Commen ts:Father. Hypertension Status:Active Comments:Mother. Kidney Disease Status:Active Comments:First D egree Relatives. maternal side No Known Family History Onset: Status:Inactive Arthritis Status:Active Comments:Mother. Cerebrovascular Accident Status:Active Comment s:Father. Coronary Artery Disease Status:Active Comments :Father. Diabetes Mellitus Type II Status:Active Commen ts:Father. Hypertension Status:Active Comments:Mother. Kidney Disease Status:Active Comments:First D egree Relatives. maternal side No Known Family History Onset: Status:Inactive Arthritis Status:Active Comments:Mother. Cerebrovascular Accident Status:Active Comment s:Father. Coronary Artery Disease Status:Active Comments :Father. Diabetes Mellitus Type II Status:Active Commen ts:Father. Hypertension Status:Active Comments:Mother. Kidney Disease Status:Active Comments:First D egree Relatives. maternal side No Known Family History Onset: 8 Status:Inactive Arthritis Status:Active Comments:Mother. Cerebrovascular Accident Status:Active Comment s:Father. Coronary Artery Disease Status:Active Comments :Father. Diabetes Mellitus Type II Status:Active Commen ts:Father. Hypertension Status:Active Comments:Mother. Kidney Disease Status:Active Comments:First D egree Relatives. maternal side No Known Family History Onset: 8 Status:Inactive Reason for Referral Specialty Diagnoses / Procedures Referred By Contac t Referred To Contact [facility] Diagnoses S/P cervical spinal fusion Procedures CONSULT TO PHYSICAL THERAPY PHYSICAL THERAPY EVALUATION HIGH COMPLEX [address] Hairston MD, PhD [address] [facility] [address] [place] [address] [facility] [place] [address] [place] [address] Referral ID Status Reason Start Date Expiration Date Visits Requested Visits Authorized [id number] Pending Review Auto-Generat ed Referral 3 08/20/2024 1 1 Specialty Diagnoses / Procedures Referred By Contac t Referred To Contact XR IMAGING Diagnoses S/P cervical spinal fusion Procedures XR CERV GENERAL 2V AP/LAT RADEX SPINE CERVICAL [address] Hairston MD, PhD [address] [place] [address] [place] [address] Referral ID Status Reason Start Date Expiration Date V isits Requested Visits Authorized [id number] Closed Auto-Generate d Referral 08/16/2023 09/14/2024 1 1 Additional Source Comments Care Teams (unrecognized sec tion and content) Team Status: Active Member Role Status Dates Dr. Dali Min MD Primary Care Provider Active Team Status: Inactive Member Role Status Dates Dr. Dali Min MD Primary Care Provider Active Dr. Andres Jovel DO Attending Provider, Referring P carlos Active Team Status: Active Member Role Status Dates Dr. Dali Min MD Primary Care Provider Active Dr. Wm Abrams MD Attending Provider, Referring P carlos Active Federal Law Clerk Relationship Specialty Start Date End Date Pcp, No PCP - General 04/09/22 10/25/[address] [place] [phone] Referring Orthopedics 10/07/22 Federal Law Clerk Relationship Specialty Start Date End Date Dali Min [address] [place] [phone] PCP - General Family Medicine 12/02/22 Andres Jovel [address] [place] [address] [phone] Referring Orthopedics 10/07/22 Federal Law Clerk Relationship Specialty Start Date End Date Dali Min [address] [facility] [place] [phone] PCP - General Family Medicine 12/02/22 Andres [address] [place] [phone] Referring Orthopedics 10/07/22 Federal Law Clerk Relationship Specialty Start Date End Date Dali Min [address] [facility] [place] [phone] PCP - General Family Medicine 12/02/22 Andres Jovel [address] [place] [address] [phone] Referring Orthopedics 10/07/22 Federal Law Clerk Relationship Specialty Start Date End Date Dali Min [address] [place] [phone] PCP - General Family Medicine 12/02/22 Andres Jovel [address] [place] [phone] Referring Orthopedics 10/07/22 Federal Law Clerk Relationship Specialty Start Date End Date Dali Min [address] [place] [address] PCP - General Family Medicine 12/02/22 Andres Jovel [address] [place] [phone] Referring Orthopedics 10/07/22 Federal Law Clerk Relationship Specialty Start Date End Date Dali Min [address] [facility] [place] [phone] PCP - General Family Medicine 12/02/22 Andres Jovel [address] [place] [phone] Referring Orthopedics 10/07/22 Federal Law Clerk Relationship Specialty Start Date End Date Dali Min [address] [facility] [place] [phone] PCP - General Family Medicine 12/02/22 Andres Jovel [address] [place] [phone] Referring Orthopedics 10/07/22 Federal Law Clerk Relationship Specialty Start Date End Date Dali Min [address] [facility] [place] [address] PCP - General Family Medicine 12/02/22 Andres Jovel [address] [place] [phone] Referring Orthopedics 10/07/22 Federal Law Clerk Relationship Specialty Start Date End Date Dali Min [address] [facility] [place] [phone] PCP - General Family Medicine 12/02/22 Andres Jovel [address] [place] [address] Referring Orthopedics 10/07/22 Federal Law Clerk Relationship Specialty Start Date End Date Andres Jovel [address] [place] [phone] Referring Orthopedics 10/07/22 Federal Law Clerk Relationship Specialty Start Date End Date Dali Min [address] [facility] [place] [phone] PCP - General Family Medicine 12/02/22 Andres Jovel DO [address] [place] [phone] Referring Orthopedics 10/07/22 Federal Law Clerk Relationship Specialty Start Date End Date Dali Min [address] [facility] [place] [phone] PCP - General Family Medicine 12/02/22 Andres Jovel DO [address] [place] [address] Referring Orthopedics 10/07/22 Goals (unrecognized section and content) Goals may be documented in a n alternate sectionGoals may be documented in an alternate section Source Comments (unrecognize d section and content) In the event this informatio n is protected by the Federal Confidentiality of Alcohol and Drug Abuse Patient Records regulations: The Federal rules restrict any use of the information to criminally investigate or prosecute any alcohol or drug abuse patient.[facility] the event this information is protected by the Federal Confidentiality of Alcohol and Drug Abuse Patient Records regulations: The Federal rules restrict any use of the information to criminally investigate or prosecute any alcohol or drug abuse patient.[facility] the event this information is protected by the Federal Confidentiality of Alcohol and Drug Abuse Patient Records regulations: The Federal rules restrict any use of the information to criminally investigate or prosecute any alcohol or drug abuse patient.[facility] the event this information is protected by the Federal Confidentiality of Alcohol and Drug Abuse Patient Records regulations: The Federal rules restrict any use of the information to criminally investigate or prosecute any alcohol or drug abuse patient.[facility] the event this information is protected by the Federal Confidentiality of Alcohol and Drug Abuse Patient Records regulations: The Federal rules restrict any use of the information to criminally investigate or prosecute any alcohol or drug abuse patient.[facility] the event this information is protected by the Federal Confidentiality of Alcohol and Drug Abuse Patient Records regulations: The Federal rules restrict any use of the information to criminally investigate or prosecute any alcohol or drug abuse patient.[facility] HospitalIn the event this information is protected by the Federal Confidentiality of Alcohol and Drug Abuse Patient Records regulations: The Federal rules restrict any use of the information to criminally investigate or prosecute any alcohol or drug abuse patient.[facility] HospitalIn the event this information is protected by the Federal Confidentiality of Alcohol and Drug Abuse Patient Records regulations: The Federal rules restrict any use of the information to criminally investigate or prosecute any alcohol or drug abuse patient.[facility] HospitalIn the event this information is protected by the Federal Confidentiality of Alcohol and Drug Abuse Patient Records regulations: The Federal rules restrict any use of the information to criminally investigate or prosecute any alcohol or drug abuse patient.[facility] HospitalIn the event this information is protected by the Federal Confidentiality of Alcohol and Drug Abuse Patient Records regulations: The Federal rules restrict any use of the information to criminally investigate or prosecute any alcohol or drug abuse patient.[facility] HospitalIn the event this information is protected by the Federal Confidentiality of Alcohol and Drug Abuse Patient Records regulations: The Federal rules restrict any use of the information to criminally investigate or prosecute any alcohol or drug abuse patient.[facility] HospitalIn the event this information is protected by the Federal Confidentiality of Alcohol and Drug Abuse Patient Records regulations: The Federal rules restrict any use of the information to criminally investigate or prosecute any alcohol or drug abuse patient.[facility] HospitalIn the event this information is protected by the Federal Confidentiality of Alcohol and Drug Abuse Patient Records regulations: The Federal rules restrict any use of the information to criminally investigate or prosecute any alcohol or drug abuse patient.[facility] HospitalIn the event this information is protected by the Federal Confidentiality of Alcohol and Drug Abuse Patient Records regulations: The Federal rules restrict any use of the information to criminally investigate or prosecute any alcohol or drug abuse patient.[facility] HospitalIn the event this information is protected by the Federal Confidentiality of Alcohol and Drug Abuse Patient Records regulations: The Federal rules restrict any use of the information to criminally investigate or prosecute any alcohol or drug abuse patient.[facility] HospitalIn the event this information is protected by the Federal Confidentiality of Alcohol and Drug Abuse Patient Records regulations: The Federal rules restrict any use of the information to criminally investigate or prosecute any alcohol or drug abuse patient.[facility] Reason for Visit (unrecogniz ed section and content) Reason Comments New Patient Neck Pain Reason Comments Follow Up Reason Comments Follow Up Phone Call All clear Reason Comments Post Op Reason Comments Post Op Reason Comments Established Patient Reason Comments Established Patient Reason Comments [employer] - Other (unrecognized sect ion and content) No Status Records FoundNo Status Records FoundNo Status Records FoundNo Status Records FoundNo Status Records Found INFORMATION SOURCE (unrecogn ized section and content) DATE CREATED AUTHOR 01/20/2023 [facility] DATE CREATED AUTHOR AUTHOR'S ORGANIZ ATION 06/10/2023 [facility] DATE CREATED AUTHOR AUTHOR'S ORGANIZ ATION 06/29/2024 [facility] DATE CREATED AUTHOR AUTHOR'S ORGANIZ ATION 01/10/2025 [facility] DATE CREATED AUTHOR AUTHOR'S ORGANIZ ATION 04/04/2025 [facility] FOR RECORDS PERTAINING TO PATIENTS WHO ARE OR HAVE BEEN ENROLLED IN A CHEMICAL DEPENDENCY/SUBSTANCEABUSE PROGRAM, SOME INFORMATION MAY BE OMITTED. This clinical summary was aggregated from multiple sources. Caution should be exercised in using it in the provision of clinical care. This summary normalizes information from multiple sources, and as a consequence, information in this document may materially change the coding, format and clinical context of patient data. In addition, data may be omitted in some cases. CLINICAL DECISIONS SHOULD BE BASED ON THE PRIMARY CLINICAL RECORDS. [facility] [employer] [facility]. provides no warranty or guarantee of the accuracy or completeness of information in this document.
[2025-05-10 11:05] LABS: Hematocrit 43.0 % (40-54); Hemoglobin 14.6 g/dL (13.0-16.5); Immature Granulocytes Count 0.070 X10^3/uL (0.0-0.0); Mean Corp Hgb Conc 34.0 g/dL (32-36); Mean Corpuscular Volume 90.1 fL (80-94); Mean Platelet Vol. 9.5 fl (6.2-12.0); NRBC Flagged by Analyzer 0 % (0-5); Platelet Count 159 K/mm3 (150-450); RBC Distribution Width CV 12.5 % (11.6-14.6); RBC Distribution Width SD 41.5 fl (35.1-43.9); Red Blood Count 4.77 M/mm3 (4.6-6.2); White Blood Count 8.1 K/mm3 (4.4-11.0)
[2025-05-10 11:15] VITALS: BP 142/75; PULSE 68; RESP 18; O2SAT 99
--- NOTE | 2025-05-10 11:26 | CT_ITS ---
PROCEDURE: BRAIN/HEAD WITHOUT CONTRAST 05/10/2025 REASON FOR EXAM: HEADACHE, DIZZY TECHNIQUE: BRAIN/HEAD WITHOUT CONTRAST Coronal and Sagittal reconstruction series were provided. One or more dose reduction techniques were used (e.g., Automated exposure control, adjustment of the mA and/or kV according to patient size, use of iterative reconstruction technique. RADIATION DOSE SUMMARY: CTDlvol: 47, 13, 24 mGy DLP: 2019 mGycm FINDINGS: BRAIN: No acute intraparenchymal hemorrhage. No mass lesion. No CT evidence for acute territorial infarct. No midline shift or extra-axial collection. VENTRICLES: No hydrocephalus. ORBITS: The orbits are unremarkable. SINUSES AND MASTOIDS: The paranasal sinuses and mastoid air cells are clear. SOFT TISSUES: No acute abnormality seen. BONES: No acute osseous abnormality seen. CT/Brain/Head without Contrast IMPRESSION: No acute intracranial abnormality. Reading Location: [id number]
--- NOTE | 2025-05-10 11:28 | CT_ITS ---
PROCEDURE: STROKE CTA HEAD AND NECK W/CON 05/10/2025 REASON FOR EXAM: HEADACHE, DIZZY TECHNIQUE: STROKE CTA HEAD AND NECK W/CON Axial CTA images of the head and neck performed with intravenous contrast. MIP reconstructed images were created and reviewed. Axial computed tomography images of the head/brain performed without intravenous contrast. Note: Per PQRS, the description of internal carotid artery percent stenosis, including 0 percent or normal exam, is based on [place] Symptomatic Carotid Endarterectomy Trial (NASCET) criteria. CONTRAST: Isovue 370 VOLUME: 100 mL One or more dose reduction techniques were used (e.g., Automated exposure control, adjustment of the mA and/or kV according to patient size, use of iterative reconstruction technique). RADIATION DOSE SUMMARY: CTDlvol: 47.06, 13.3, 24.1 mGy DLP: 2019 mGycm COMPARISON: None. FINDINGS: CT HEAD: BRAIN: No acute intraparenchymal hemorrhage. No mass lesion. No CT evidence for acute territorial infarct. No midline shift or extra-axial collection. VENTRICLES: No hydrocephalus. ORBITS: The orbits are unremarkable. SINUSES AND MASTOIDS: The paranasal sinuses and mastoid air cells are clear. SOFT TISSUES No acute finding. BONES No acute osseous abnormality. CTA HEAD: INTERNAL CAROTID ARTERIES No significant stenosis. No occlusion. No aneurysm. ANTERIOR CEREBRAL ARTERIES No significant stenosis. No occlusion. No aneurysm. MIDDLE CEREBRAL ARTERIES No significant stenosis. No occlusion. No aneurysm. POSTERIOR CEREBRAL ARTERIES No significant stenosis. No occlusion. No aneurysm. BASILAR ARTERY No significant stenosis. No occlusion. No aneurysm. VERTEBRAL ARTERIES No significant stenosis. No dissection or occlusion. CTA NECK: COMMON CAROTID ARTERIES No significant stenosis. No dissection or occlusion. INTERNAL CAROTID ARTERIES No stenosis by NASCET criteria. No dissection or occlusion. VERTEBRAL ARTERIES No significant stenosis. No dissection or occlusion. SOFT TISSUES No acute finding. No masses or lymphadenopathy. BONES No acute osseous abnormality. Bilateral trans-pedicle screws and stabilizing rods spanning from C3 to C6. No evidence of hardware failure or loosening. Degenerative changes of the spine. CT/STROKE CTA Head AND Neck W/Con IMPRESSION: 1. No acute intracranial abnormality. 2. No hemodynamically significant stenosis within the head or neck. No evidenc e of intracranial aneurysm. Reading Location: [id number]
[2025-05-10] MEDS: 0.9% Normal Saline (1000mL) 1,000 ML 999 ML IV (11:39)
[2025-05-10 11:56] VITALS: BP 123/71; BP 123/75; BP 137/90; PULSE 63; PULSE 65; PULSE 70
[2025-05-10 11:58] LABS: Magnesium 2.2 mg/dL (1.5-2.2); Troponin T High Sensitivity 10 ng/L (<=22)
[2025-05-10 12:02] LABS: Anion Gap 13 (5-15); BUN 13 mg/dL (4-19); BUN/Creat Ratio 15.2 RATIO (10-20); Calcium,Total 8.9 mg/dL (7.6-11.0); Carbon Dioxide 20.2 mmol/L (21.0-32.0); Chloride 106 mmol/L (98-108); Estimated Creatinine Clearance 145.31 ml/min (50-250); Glucose 118 mg/dL (70-99); Potassium 4.4 mmol/L (3.3-5.1)
[2025-05-10 13:00] VITALS: BP 130/76; PULSE 63; RESP 14; O2SAT 98
[2025-05-10 13:03] LABS: Troponin T High Sens 2 HR 11 ng/L (<=22)
== END 2025-05-10 14:42 | disposition home or self-care (01) ==
PROVIDERS: Emergency Provider Emergency Medicine; PCP Family Medicine; Visit Provider Emergency Medicine
DX: R42 Dizziness and giddiness (principal); R51.9 Headache, unspecified; R11.0 Nausea
CPT/HCPCS: 70450; 70496; 70498; 71046; 80048; 83735; 84443; 84484; 85025; 93005; 96361; 96374; 99284; Q9967; A4216